=== PATIENT | male | born 1955 ===

== ENCOUNTER 2018-06-21 21:09 | Inpatient (IN) | payer MEDICAID ==
--- NOTE | 2018-06-21 21:59 | C.PDOC ---
History Of Present Illness Patient presents to the ER with a complaint of worsening bilateral leg pain, redness, and swelling. Patient is an insulin dependent diabetic. Denies fever, chills, or trauma. Time Seen by Provider: 06/21/18 21:58 Chief Complaint (Nursing): Lower Extremity Problem/Injury History Per: Patient History/Exam Limitations: no limitations Onset/Duration Of Symptoms: Days Current Symptoms Are (Timing): Still Present Severity: Moderate Pain Scale Rating Of: 4 Recent travel outside of the [place]: No Additional History Per: Patient Past Medical History Reviewed: Historical Data, Nursing Documentation, Vital Signs Vital Signs: Last Vital Signs Temp 98.2 F 06/21/18 21:24 Pulse 97 H 06/21/18 22:50 Resp 20 06/21/18 22:50 BP 134/88 06/21/18 22:50 Pulse Ox 98 06/21/18 22:50 - Medical History PMH: Depression, Diabetes, Hepatitis (Hepatitis C), HTN, Hypercholesterolemia - [facility] INJECT/INFUSE NEC (03/03/14) Family History: States: No Known Family Hx - Social History Hx Tobacco Use: No Hx Alcohol Use: Yes Hx Substance Use: No - Immunization History Hx Tetanus Toxoid Vaccination: No Hx Influenza Vaccination: Yes Hx Pneumococcal Vaccination: No Review Of Systems Constitutional: Negative for: Fever, Chills Cardiovascular: Negative for: Chest Pain, Palpitations Respiratory: Negative for: Cough, Shortness of Breath Gastrointestinal: Negative for: Nausea, Vomiting Genitourinary: Negative for: Dysuria Musculoskeletal: Positive for: Leg Pain Skin: Positive for: Rash, Lesions, Other (Erythema) Neurological: Negative for: Weakness, Numbness Psych: Negative for: Anxiety Physical Exam - Physical Exam Appears: Non-toxic Skin: Warm, Dry, Rash Head: Normacephalic Eye(s): bilateral: Normal Inspection Oral Mucosa: Moist Neck: Supple Chest: Symmetrical, No Tenderness Cardiovascular: Rhythm Regular Respiratory: No Rales, No Rhonchi, No Wheezing Gastrointestinal/Abdominal: Soft, No Tenderness Back: Normal Inspection Extremity: Pedal Edema, Capillary Refill (<2 seconds), Swelling, Other ( Bilateral lower extremity erythema with poor vascular stasis skin changes) Extremity: Bilateral: Atraumatic Pulses: Left Dorsalis Pedis: Normal, Right Dorsalis Pedis: Normal Neurological/Psych: Oriented x3 Gait: Steady ED Course And Treatment - Laboratory Results Result Diagrams: 06/21/18 22:48 06/21/18 22:48 O2 Sat by Pulse Oximetry: 96 (Room air) Pulse Ox Interpretation: Normal Progress Note: Blood work and urinalysis ordered. Disposition Counseled Patient/Family Regarding: Studies Performed, Diagnosis, Need For Followup - Disposition Disposition: HOSPITALIZED Disposition Time: 21:59 Condition: FAIR Forms: [facility] (Turkmen) - POA Present On Arrival: None - Clinical Impression Clinical Impression: Cellulitis of lower extremity, PVD (peripheral vascular disease) - Scribe Statement The provider has reviewed the documentation as recorded by the Scribe Miguel Argueta All medical record entries made by the Scribe were at my direction and personally dictated by me. I have reviewed the chart and agree that the record accurately reflects my personal performance of the history, physical exam, medical decision making, and the department course for this patient. I have also personally directed, reviewed, and agree with the discharge instructions and disposition. Decision To Admit - Pt Status Changed To: Hospital Disposition Of: Inpatient - Admit Certification Admit to Inpatient:: After my assessment, the patient will require hospitalization for at least two midnights. This is because of the severity of symptoms shown, intensity of services needed, and/or the medical risk in this patient being treated as an outpatient. - InPatient: Physician Admission Certification: I certify that this patient requires 2 or more midnights of care for the following reason:: After my assessment, the patient will require hospitalization for at least two midnights. This is because of the severity of symptoms shown, intensity of services needed, and/or the medical risk in this patient being treated as an outpatient. - . Bed Request Type: Regular Admitting Physician: Elizabeth Conley Patient Diagnosis: Cellulitis of lower extremity, PVD (peripheral vascular disease)
[2018-06-21 22:51] LABS: BASO # 0.1 K/uL (0.0-0.2); EOS # 0.2 K/uL (0.0-0.7); EOS % 3.9 % (0.0-4.0); HEMOGLOBIN 11.7 g/dL (12.0-18.0); LYMPH # 1.3 K/uL (1.0-4.3); LYMPH % 25.2 % (20.0-40.0); MEAN CELL VOLUME 91.9 fL (80.0-94.0); MEAN CORPUSCULAR HEMOGLOBIN 30.9 pg (27.0-31.0); MEAN CORPUSCULAR HGB CONC 33.7 g/dL (33.0-37.0); MEAN PLATELET VOLUME 9.4 fL (7.2-11.7); MONO # 0.8 K/uL (0.0-0.8); MONO % 15.3 % (0.0-10.0); NEUT # 2.9 K/uL (1.8-7.0); NEUT % 54.6 % (50.0-75.0); RBC 3.79 Mil/uL (4.40-5.90); RED CELL DISTRIBUTION WIDTH 15.8 % (11.5-14.5); WHITE BLOOD COUNT 5.3 K/uL (4.8-10.8)
[2018-06-21 22:58] LABS: INR 1.2; PROTHROMBIN TIME 13.6 SECONDS (9.7-12.2)
[2018-06-21] MEDS ORDERED: Vancomycin 1 gm/NS 200 ml 1 GM/200 ML BAG IVPB ONE (23:00)
[2018-06-21] MEDS ORDERED: Vancomycin 1 GM 1 GM/250 ML BAG IVPB SCH (23:15)
[2018-06-21 23:22] LABS: ALB/GLOB RATIO 1.4 (1.0-2.1); ALBUMIN 3.5 g/dL (3.5-5.0); CALCIUM 10.5 mg/dl (8.6-10.4)
[2018-06-21 23:52] LABS: VENOUS BLOOD GAS BASE EXCESS 0.1 mmol/L (0.0-2.0); VENOUS BLOOD GAS PCO2 46 mmHg (40-60); VENOUS BLOOD GAS PO2 46 mm/Hg (30-55); VENOUS BLOOD PH 7.36 (7.32-7.43)
[2018-06-22 04:16] LABS: URINE BILIRUBIN NEGATIVE (NEGATIVE); URINE BLOOD NEGATIVE (NEGATIVE); URINE CLARITY Clear (Clear); URINE COLOR Yellow (YELLOW); URINE GLUCOSE (UA) NORMAL (Normal); URINE LEUKOCYTE ESTERASE NEG Leu/uL (Negative); URINE PROTEIN NEGATIVE (NEGATIVE); URINE UROBILINOGEN NORMAL mg/dL (0.2-1.0)
--- NOTE | 2018-06-22 07:38 | CP.PCM.CON ---
History of Present Illness - History of Present Illness History of Present Illness: cc: lower leg pain Mr. Rick and a 53 year old male PMH IDDM, HepC, HTN, hypercholesterolemia presents today with bilateral leg pain with redness and swelling. He was recently seen a week ago (06/14) at both [place] and [facility] EDs for worsening back wound which cultured MRSA and enterobacter cloacae. He was discharged before being able to start an appropriate antibiotic course. He came back to the [facility] ED today for worsening bilateral leg pain, redness, and swelling. States he is still weight-bearing due, however very discomfort. Denies CP, SOB, abd pain, f/c, n/v, c/d, additional trauma. Review of Systems - Constitutional Constitutional: Malaise. absent: Anorexia, Chills, Fever - EENT Eyes: absent: Blurred Vision, Diplopia Ears: absent: Tinnitus, Dizziness Nose/Mouth/Throat: absent: Dysphagia, Odynophagia - Cardiovascular Cardiovascular: Edema, Leg Edema, Leg Ulcers, Pedal Edema. absent: Chest Pain, Dyspnea - Respiratory Respiratory: absent: Cough, Dyspnea, Wheezing - Gastrointestinal Gastrointestinal: absent: Diarrhea, Loose Stools, Melena, Nausea, Vomiting - Genitourinary Genitourinary: absent: Urinary Hesitance, Urinary Urgency, Freq UTI - Musculoskeletal Musculoskeletal: Abnormal Gait, Muscle Cramps, Myalgias - Integumentary Integumentary: Change in Nails, Erythema, Lesions, Non-Healing Lesions, Skin Ulcer, Sores - Neurological Neurological: Abnormal Gait, Numbness, Sensory Deficit, Tingling. absent: Abnormal Hearing, Confusion - Psychiatric Psychiatric: absent: Behavioral Changes, Hallucinations, Mood Swings - Endocrine Endocrine: Fatigue. absent: Cold Intolorance, Heat Intolorance - Hematologic/Lymphatic Hematologic: Easy Bruising. absent: Easy Bleeding Past Patient History - Infectious Disease Hx of Infectious Diseases: None - Past Social History Smoking Status: Current Some Days Smoker Alcohol: Social Drugs: Denies - CARDIAC Hx Hypercholesterolemia: Yes Hx Hypertension: Yes - ENDOCRINE/METABOLIC Hx Diabetes Mellitus Type 1: Yes - HEMATOLOGICAL/ONCOLOGICAL Hx Hepatitis C: Yes - INTEGUMENTARY Other/Comment: left foot ulcer - MUSCULOSKELETAL/RHEUMATOLOGICAL Hx Falls: No - PSYCHIATRIC Hx Depression: Yes Hx Substance Use: No - SURGICAL HISTORY Hx Herniorrhaphy: Yes - ANESTHESIA Hx Anesthesia: Yes Hx Anesthesia Reactions: No Meds Allergies/Adverse Reactions: Allergies Allergy/AdvReac Type Severity Reaction Status Date / Time Penicillins Allergy RASH Verified 06/21/18 21:27 - Medications Medications: Current Medications Apixaban (Eliquis) 5 mg PO DAILY [facility] Colchicine (Colocrys) 0.6 mg PO DAILY [facility] Diltiazem HCl (Cardizem Cd) 240 mg PO DAILY [facility] Gabapentin (Neurontin) 300 mg PO BID [facility] Glimepiride (Amaryl) 2 mg PO DAILY [facility] Home Med (Metformin [Glucophage]) 500 mg PO BID [facility] Vancomycin HCl 1 gm/ Sodium (Chloride) 250 mls @ 167 mls/hr IVPB Q24H [facility]EL[facility] PRN Reason: Protocol Last Admin: 06/22/18 02:19 Dose: Not Given Insulin Aspart (Novolog) 1 unit SC ACHS [facility] PRN Reason: Protocol Losartan Potassium (Cozaar) 100 mg PO DAILY [facility] Pantoprazole Sodium (Protonix Ec Tab) 40 mg PO DAILY [facility] Pneumococcal Polyvalent Vaccine (Pneumovax 23 Vaccine) 0.5 ml IM .ONCE ONE Stop: 06/24/18 14:01 Physical Exam - Constitutional Appears: Non-toxic, No Acute Distress - Head Exam Head Exam: ATRAUMATIC, NORMOCEPHALIC - Eye Exam Eye Exam: EOMI, Normal appearance - Respiratory Exam Respiratory Exam: NORMAL BREATHING PATTERN. absent: Wheezes - Cardiovascular Exam Cardiovascular Exam: +S1, +S2 - GI/Abdominal Exam GI & Abdominal Exam: Normal Bowel Sounds, Soft. absent: Tenderness - Extremities Exam Extremities exam: Positive for: pedal edema, tenderness, pedal pulses present Additional comments: palpable DP, PT bilaterally - Neurological Exam Neurological exam: Alert, CN II-XII Intact, Oriented x3 - Psychiatric Exam Psychiatric exam: Normal Affect, Normal Mood - Skin Skin Exam: Dry, Erythema, Intact, Mottled Additional comments: bilaterally below the knees erythematous, nonpitting edema, tenderness to palpation, without blanching, hot Results - Vital Signs Recent Vital Signs: Last Vital Signs Temp 97.6 F 06/22/18 04:21 Pulse 94 H 06/22/18 04:21 Resp 22 06/22/18 04:21 BP 171/87 H 06/22/18 04:21 Pulse Ox 97 06/22/18 04:29 - Labs Result Diagrams: 06/22/18 07:34 06/22/18 07:34 Labs: Laboratory Results - last 24 hr 06/21/18 06/21/18 06/21/18 22:00 22:48 22:48 WBC 5.3 RBC 3.79 L Hgb 11.7 L Hct 34.9 L MCV 91.9 D MCH 30.9 MCHC 33.7 RDW 15.8 H Plt Count 165 MPV 9.4 Neut % (Auto) 54.6 Lymph % (Auto) 25.2 [place] % (Auto) 15.3 H Eos % (Auto) 3.9 Baso % (Auto) 1.0 Neut # (Auto) 2.9 Lymph # (Auto) 1.3 [place] # (Auto) 0.8 Eos # (Auto) 0.2 Baso # (Auto) 0.1 PT 13.6 H INR 1.2 APTT 33 pO2 VBG pH VBG pCO2 VBG HCO3 VBG Total CO2 VBG O2 Sat (Calc) VBG Base Excess VBG Potassium Glucose Lactate Sodium Potassium Chloride Carbon Dioxide Anion Gap BUN Creatinine Est GFR ( Amer) Est GFR (Non-Af Amer) POC Glucose (mg/dL) 100 Random Glucose Calcium Total Bilirubin AST ALT Alkaline Phosphatase Total Protein Albumin Globulin Albumin/Globulin Ratio Venous Blood Potassium Urine Color Urine Clarity Urine pH Ur Specific [place] Urine Protein Urine Glucose (UA) Urine Ketones Urine Blood Urine Nitrate Urine Bilirubin Urine Urobilinogen Ur Leukocyte Esterase Urine WBC (Auto) Urine RBC (Auto) B-Hydroxybutyrate 06/21/18 06/21/18 06/22/18 22:48 23:38 04:07 WBC RBC Hgb Hct MCV MCH MCHC RDW Plt Count MPV Neut % (Auto) Lymph % (Auto) [place] % (Auto) Eos % (Auto) Baso % (Auto) Neut # (Auto) Lymph # (Auto) [place] # (Auto) Eos # (Auto) Baso # (Auto) PT INR APTT pO2 46 VBG pH 7.36 VBG pCO2 46 VBG HCO3 24.5 VBG Total CO2 27.4 VBG O2 Sat (Calc) 84.3 H VBG Base Excess 0.1 VBG Potassium 3.7 Glucose 91 Lactate 1.5 Sodium 145 144.0 Potassium 4.0 Chloride 110 H 113.0 H Carbon Dioxide 28 Anion Gap 11 BUN 9 Creatinine 1.5 Est GFR ( Amer) 59 Est GFR (Non-Af Amer) 49 POC Glucose (mg/dL) Random Glucose 102 Calcium 10.5 H Total Bilirubin 0.5 AST 18 ALT 26 Alkaline Phosphatase 107 Total Protein 6.1 L Albumin 3.5 Globulin 2.6 Albumin/Globulin Ratio 1.4 Venous Blood Potassium 3.7 Urine Color Yellow Urine Clarity Clear Urine pH 5.0 Ur Specific [place] 1.011 Urine Protein Negative Urine Glucose (UA) Normal Urine Ketones Negative Urine Blood Negative Urine Nitrate Negative Urine Bilirubin Negative Urine Urobilinogen Normal Ur Leukocyte Esterase Neg Urine WBC (Auto) 1 Urine RBC (Auto) 1 B-Hydroxybutyrate 0.05 06/22/18 06:24 WBC RBC Hgb Hct MCV MCH MCHC RDW Plt Count MPV Neut % (Auto) Lymph % (Auto) [place] % (Auto) Eos % (Auto) Baso % (Auto) Neut # (Auto) Lymph # (Auto) [place] # (Auto) Eos # (Auto) Baso # (Auto) PT INR APTT pO2 VBG pH VBG pCO2 VBG HCO3 VBG Total CO2 VBG O2 Sat (Calc) VBG Base Excess VBG Potassium Glucose Lactate Sodium Potassium Chloride Carbon Dioxide Anion Gap BUN Creatinine Est GFR ( Amer) Est GFR (Non-Af Amer) POC Glucose (mg/dL) 92 Random Glucose Calcium Total Bilirubin AST ALT Alkaline Phosphatase Total Protein Albumin Globulin Albumin/Globulin Ratio Venous Blood Potassium Urine Color Urine Clarity Urine pH Ur Specific [place] Urine Protein Urine Glucose (UA) Urine Ketones Urine Blood Urine Nitrate Urine Bilirubin Urine Urobilinogen Ur Leukocyte Esterase Urine WBC (Auto) Urine RBC (Auto) B-Hydroxybutyrate Assessment & Plan - Assessment and Plan (Free Text) Assessment: 53yoM PMH IDDM with PVD Plan: - bilateral arterial dopplers: negative - bilateral venous dopplers: negative - wound Cx done 06/14 positive for MRSA and enterobacter cloacae - cont IV abx per ID - palpable peripheral pulses bilaterally - erythema due to venous stasis - rec compression stockings and elevation - signing off - please reconsult as necessary Annalise Crabtree PGY1 - Date & Time Date: 06/22/18 Time: 06:30
[2018-06-22 07:50] LABS: BASO # 0.1 K/uL (0.0-0.2); BASO % 1.2 % (0.0-2.0); EOS # 0.2 K/uL (0.0-0.7); EOS % 3.9 % (0.0-4.0); HEMOGLOBIN 12.1 g/dL (12.0-18.0); LYMPH # 1.1 K/uL (1.0-4.3); LYMPH % 20.9 % (20.0-40.0); MEAN CELL VOLUME 91.8 fL (80.0-94.0); MEAN CORPUSCULAR HEMOGLOBIN 30.5 pg (27.0-31.0); MEAN CORPUSCULAR HGB CONC 33.3 g/dL (33.0-37.0); MEAN PLATELET VOLUME 9.4 fL (7.2-11.7); MONO # 0.8 K/uL (0.0-0.8); MONO % 14.5 % (0.0-10.0); NEUT # 3.1 K/uL (1.8-7.0); NEUT % 59.5 % (50.0-75.0); NRBC % 0.1 % (0.0-2.0); RBC 3.97 Mil/uL (4.40-5.90); RED CELL DISTRIBUTION WIDTH 16.2 % (11.5-14.5); WHITE BLOOD COUNT 5.2 K/uL (4.8-10.8)
[2018-06-22] MEDS: (Novolog) Insulin Aspart, Recombinant 100 u/ml 10 ml vial SC SCH ×4 (07:50→22:32)
[2018-06-22 08:00] LABS: ALB/GLOB RATIO 1.3 (1.0-2.1); ALBUMIN 3.3 g/dL (3.5-5.0); ALT/SGPT 27 U/L (21-72); AST/SGOT 22 U/L (17-59); BLOOD UREA NITROGEN 11 mg/dL (9-20); CALCIUM 10.3 mg/dl (8.6-10.4); GFR AFRICAN-AMERICAN > 60; GFR NON-AFRICAN AMERICAN 53
[2018-06-22 08:23] LABS: B-TYPE NATRIURETIC PEPTIDE 759 pg/mL (0-900)
[2018-06-22] MEDS: Pantoprazole 40 mg EC Tab PO SCH (09:36)
[2018-06-22] MEDS: diltiaZEM 240 mg/24 Hours CD Cap PO SCH (09:36)
[2018-06-22] MEDS ORDERED: Home Med 1 UNIT (Metformin [Glucophage] 500 MG) PO SCH (10:00)
--- NOTE | 2018-06-22 12:35 | CP.PCM.HP ---
Past Patient History - Infectious Disease Hx of Infectious Diseases: None - Past Social History Smoking Status: Current Some Days Smoker Alcohol: Social Drugs: Denies - CARDIAC Hx Hypercholesterolemia: Yes Hx Hypertension: Yes - ENDOCRINE/METABOLIC Hx Diabetes Mellitus Type 1: Yes - HEMATOLOGICAL/ONCOLOGICAL Hx Hepatitis C: Yes - INTEGUMENTARY Other/Comment: left foot ulcer - MUSCULOSKELETAL/RHEUMATOLOGICAL Hx Falls: No - PSYCHIATRIC Hx Depression: Yes Hx Substance Use: No - SURGICAL HISTORY Hx Herniorrhaphy: Yes - ANESTHESIA Hx Anesthesia: Yes Hx Anesthesia Reactions: No Meds Allergies/Adverse Reactions: Allergies Allergy/AdvReac Type Severity Reaction Status Date / Time Penicillins Allergy RASH Verified 06/21/18 21:27 Physical Exam - Constitutional Appears: Well - Head Exam Head Exam: ATRAUMATIC, NORMAL INSPECTION, NORMOCEPHALIC - Eye Exam Eye Exam: EOMI, Normal appearance, PERRL Pupil Exam: NORMAL ACCOMODATION, PERRL - ENT Exam ENT Exam: Mucous Membranes Moist, Normal Exam - Neck Exam Neck exam: Positive for: Normal Inspection - Respiratory Exam Respiratory Exam: Decreased Breath Sounds - Cardiovascular Exam Cardiovascular Exam: REGULAR RHYTHM, +S1, +S2 - GI/Abdominal Exam GI & Abdominal Exam: Diminished Bowel Sounds, Soft - Rectal Exam Rectal Exam: Deferred Results - Vital Signs Recent Vital Signs: Last Vital Signs Temp 98.2 F 06/22/18 07:32 Pulse 94 H 06/22/18 04:21 Resp 18 06/22/18 07:32 BP 168/80 H 06/22/18 07:32 Pulse Ox 100 06/22/18 07:32 - Labs Result Diagrams: 06/22/18 07:34 06/22/18 07:34 Labs: Laboratory Results - last 24 hr 06/21/18 06/21/18 06/21/18 22:00 22:48 22:48 WBC 5.3 RBC 3.79 L Hgb 11.7 L Hct 34.9 L MCV 91.9 D MCH 30.9 MCHC 33.7 RDW 15.8 H Plt Count 165 MPV 9.4 Neut % (Auto) 54.6 Lymph % (Auto) 25.2 [place] % (Auto) 15.3 H Eos % (Auto) 3.9 Baso % (Auto) 1.0 Neut # (Auto) 2.9 Lymph # (Auto) 1.3 [place] # (Auto) 0.8 Eos # (Auto) 0.2 Baso # (Auto) 0.1 PT 13.6 H INR 1.2 APTT 33 pO2 VBG pH VBG pCO2 VBG HCO3 VBG Total CO2 VBG O2 Sat (Calc) VBG Base Excess VBG Potassium Glucose Lactate Sodium Potassium Chloride Carbon Dioxide Anion Gap BUN Creatinine Est GFR ( Amer) Est GFR (Non-Af Amer) POC Glucose (mg/dL) 100 Random Glucose Calcium Phosphorus Magnesium Total Bilirubin AST ALT Alkaline Phosphatase NT-Pro-B Natriuret Pep Total Protein Albumin Globulin Albumin/Globulin Ratio Venous Blood Potassium Urine Color Urine Clarity Urine pH Ur Specific [place] Urine Protein Urine Glucose (UA) Urine Ketones Urine Blood Urine Nitrate Urine Bilirubin Urine Urobilinogen Ur Leukocyte Esterase Urine WBC (Auto) Urine RBC (Auto) B-Hydroxybutyrate 06/21/18 06/21/18 06/22/18 22:48 23:38 04:07 WBC RBC Hgb Hct MCV MCH MCHC RDW Plt Count MPV Neut % (Auto) Lymph % (Auto) [place] % (Auto) Eos % (Auto) Baso % (Auto) Neut # (Auto) Lymph # (Auto) [place] # (Auto) Eos # (Auto) Baso # (Auto) PT INR APTT pO2 46 VBG pH 7.36 VBG pCO2 46 VBG HCO3 24.5 VBG Total CO2 27.4 VBG O2 Sat (Calc) 84.3 H VBG Base Excess 0.1 VBG Potassium 3.7 Glucose 91 Lactate 1.5 Sodium 145 144.0 Potassium 4.0 Chloride 110 H 113.0 H Carbon Dioxide 28 Anion Gap 11 BUN 9 Creatinine 1.5 Est GFR ( Amer) 59 Est GFR (Non-Af Amer) 49 POC Glucose (mg/dL) Random Glucose 102 Calcium 10.5 H Phosphorus Magnesium Total Bilirubin 0.5 AST 18 ALT 26 Alkaline Phosphatase 107 NT-Pro-B Natriuret Pep Total Protein 6.1 L Albumin 3.5 Globulin 2.6 Albumin/Globulin Ratio 1.4 Venous Blood Potassium 3.7 Urine Color Yellow Urine Clarity Clear Urine pH 5.0 Ur Specific [place] 1.011 Urine Protein Negative Urine Glucose (UA) Normal Urine Ketones Negative Urine Blood Negative Urine Nitrate Negative Urine Bilirubin Negative Urine Urobilinogen Normal Ur Leukocyte Esterase Neg Urine WBC (Auto) 1 Urine RBC (Auto) 1 B-Hydroxybutyrate 0.05 06/22/18 06/22/18 06/22/18 06:24 07:34 07:34 WBC 5.2 RBC 3.97 L Hgb 12.1 Hct 36.4 MCV 91.8 MCH 30.5 MCHC 33.3 RDW 16.2 H Plt Count 165 MPV 9.4 Neut % (Auto) 59.5 Lymph % (Auto) 20.9 [place] % (Auto) 14.5 H Eos % (Auto) 3.9 Baso % (Auto) 1.2 Neut # (Auto) 3.1 Lymph # (Auto) 1.1 [place] # (Auto) 0.8 Eos # (Auto) 0.2 Baso # (Auto) 0.1 PT INR APTT pO2 VBG pH VBG pCO2 VBG HCO3 VBG Total CO2 VBG O2 Sat (Calc) VBG Base Excess VBG Potassium Glucose Lactate Sodium 144 Potassium 4.2 Chloride 110 H Carbon Dioxide 27 Anion Gap 12 BUN 11 Creatinine 1.4 Est GFR ( Amer) > 60 Est GFR (Non-Af Amer) 53 POC Glucose (mg/dL) 92 Random Glucose 95 Calcium 10.3 Phosphorus 2.6 Magnesium 1.8 Total Bilirubin 0.5 AST 22 ALT 27 Alkaline Phosphatase 102 NT-Pro-B Natriuret Pep 759 Total Protein 6.0 L Albumin 3.3 L Globulin 2.6 Albumin/Globulin Ratio 1.3 Venous Blood Potassium Urine Color Urine Clarity Urine pH Ur Specific [place] Urine Protein Urine Glucose (UA) Urine Ketones Urine Blood Urine Nitrate Urine Bilirubin Urine Urobilinogen Ur Leukocyte Esterase Urine WBC (Auto) Urine RBC (Auto) B-Hydroxybutyrate 06/22/18 11:08 WBC RBC Hgb Hct MCV MCH MCHC RDW Plt Count MPV Neut % (Auto) Lymph % (Auto) [place] % (Auto) Eos % (Auto) Baso % (Auto) Neut # (Auto) Lymph # (Auto) [place] # (Auto) Eos # (Auto) Baso # (Auto) PT INR APTT pO2 VBG pH VBG pCO2 VBG HCO3 VBG Total CO2 VBG O2 Sat (Calc) VBG Base Excess VBG Potassium Glucose Lactate Sodium Potassium Chloride Carbon Dioxide Anion Gap BUN Creatinine Est GFR ( Amer) Est GFR (Non-Af Amer) POC Glucose (mg/dL) 91 Random Glucose Calcium Phosphorus Magnesium Total Bilirubin AST ALT Alkaline Phosphatase NT-Pro-B Natriuret Pep Total Protein Albumin Globulin Albumin/Globulin Ratio Venous Blood Potassium Urine Color Urine Clarity Urine pH Ur Specific [place] Urine Protein Urine Glucose (UA) Urine Ketones Urine Blood Urine Nitrate Urine Bilirubin Urine Urobilinogen Ur Leukocyte Esterase Urine WBC (Auto) Urine RBC (Auto) B-Hydroxybutyrate
--- NOTE | 2018-06-22 15:13 | VASCLAB ---
Date of service: 06/22/2018 PROCEDURE: Lower Extremity Venous Duplex Exam. HISTORY: CELLULITIS, PAIN PRIORS: None. TECHNIQUE: Bilateral common femoral, femoral, popliteal and posterior tibial, peroneal and great saphenous veins were evaluated. Flow was assessed with color Doppler, compressibility, assessment of phasic flow and augmentation response. Report prepared by Miguel Sharma, BS, RVT FINDINGS: RIGHT: 1. Common Femoral Vein: 1.1. Compressibility - Fully compressible: Thrombus - None : Flow - Phasic: Augmentation -Normal: Reflux - None. 2. Femoral Vein: 2.1. Compressibility - Fully compressible: Thrombus - None : Flow - Phasic: Augmentation -Normal: Reflux - None. 3. Popliteal Vein: 3.1. Compressibility - Fully compressible: Thrombus - None : Flow - Phasic: Augmentation -Normal: Reflux - None. 4. Posterior Tibial Vein: 4.1. Compressibility - Fully compressible: Thrombus - None: Flow - Phasic: Augmentation -Normal: Reflux - None. 5. Peroneal Vein: 5.1. Compressibility - Fully compressible: Thrombus - None: Flow - Phasic: Augmentation -Normal: Reflux - None. 6. Great Saphenous Vein: 6.1. Compressibility - Fully compressible: Thrombus - None: Flow - Phasic: Augmentation - Normal: Reflux - None. LEFT: 1. Common Femoral Vein: 1.1. Compressibility - Fully compressible: Thrombus - None: Flow - Phasic: Augmentation -Normal: Reflux - None. 2. Femoral Vein: 2.1. Compressibility - Fully compressible: Thrombus - None: Flow - Phasic: Augmentation -Normal: Reflux - None. 3. Popliteal Vein: 3.1. Compressibility - Fully compressible: Thrombus - None : Flow - Phasic: Augmentation -Normal: Reflux - None. 4. Posterior Tibial Vein: 4.1. Compressibility - Fully compressible: Thrombus - None: Flow - Phasic: Augmentation -Normal: Reflux - None. 5. Peroneal Vein: 5.1. Compressibility - Fully compressible: Thrombus - None: Flow - Phasic: Augmentation -Normal: Reflux - None. 6. Great Saphenous Vein: 6.1. Compressibility - Fully compressible: Thrombus - None: Flow - Phasic: Augmentation - Normal: Reflux - None. OTHER FINDINGS: Right: None significant. Left: None significant. IMPRESSION: Right: No evidence of deep or superficial vein thrombosis of the right lower extremity. Normal valve function noted of the right side. Left: No evidence of deep or superficial vein thrombosis of the left lower extremity. Normal valve function noted of the left side.
--- NOTE | 2018-06-22 15:13 | VASCLAB ---
Date of service: 06/22/2018 STUDY DESCRIPTION: HISTORY: CELLULITIS,PAIN IN LOWER EXTREMITIES PRIORS: None. TECHNIQUE: Pulse volume recording waveforms and segmental pressures of bilateral lower extremities at multiple levels were obtained. Ankle Brachial Indices (ABIs) were calculated. Report prepared by Miguel Sharma, BS, RVT RIGHT LOWER EXTREMITY: * Brachial artery: Pressure - 145 mmHg. * High thigh: Pressure - mmHg: Ratio - : PVR waveform - Pulsatile * Low thigh: Pressure - mmHg: Ratio - PVR waveform: Pulsatile * Calf: Pressure - 165 mmHg: Ratio - 1.14 PVR waveform: Pulsatile * Posterior tibial Artery: Pressure - 174 mmHg: Ratio - 1.20 PVR waveform: Pulsatile * Dorsalis pedis Artery: Pressure - 167 mmHg: Ratio - 1.15 PVR waveform: Pulsatile * Great toe: Pressure - mmHg: Ratio - PVR waveform: Ankle brachial index (ED): 1.20 LEFT LOWER EXTREMITY: * Brachial artery: Pressure - 132 mmHg. * High thigh: Pressure - mmHg: Ratio - : PVR waveform - Pulsatile * Low thigh: Pressure - mmHg: Ratio - PVR waveform: Pulsatile * Calf: Pressure - 171 mmHg: Ratio - 1.18 PVR waveform: Pulsatile * Posterior tibial Artery: Pressure - 159 mmHg: Ratio - 1.10 PVR waveform: Pulsatile * Dorsalis pedis Artery: Pressure - 167 mmHg: Ratio - 1.15 PVR waveform: Pulsatile * Great toe: Pressure - mmHg: Ratio - PVR waveform: Ankle brachial index (ED): 1.15 OTHER FINDINGS: Right: Left: IMPRESSION: Right: There was no evidence of hemodynamically significant arterial insufficiency in the right lower extremity. Left: There was no evidence of hemodynamically significant arterial insufficiency in the left lower extremity.
--- NOTE | 2018-06-22 15:53 | CP.PCM.CON ---
History of Present Illness - History of Present Illness History of Present Illness: Patient presents to the ER with a complaint of worsening bilateral leg pain, redness, and swelling. Patient is an insulin dependent diabetic. Denies fever, chills, or trauma. hx allergy PCN started Vanco IV - Medical History PMH: Depression, Diabetes, Hepatitis (Hepatitis C), HTN, Hypercholesterolemia - [facility] Procedures INJECT/INFUSE NEC (03/03/14) Review of Systems - Review of Systems All systems: reviewed and no additional remarkable complaints except - Constitutional Constitutional: As Per HPI - EENT Eyes: absent: As Per HPI, Blind Spots, Blurred Vision, Change in Vision, Decreased Night Vision, Diplopia, Discharge, Dry Eye, Exophthalmos, Floaters, Irritation, Itchy Eyes, Loss of Peripheral Vision, Pain, Photophobia, Requires Corrective Lenses, Sees Flashes, Spots in Vision, Tunnel Vision, Other Visual Disturbances, Loss of Vision, Other Ears: absent: As Per HPI, Decreased Hearing, Ear Discharge, Ear Pain, Tinnitus, Abnormal Hearing, Disequilibrium, Dizziness, Other Nose/Mouth/Throat: absent: As Per HPI, Epistaxis, Nasal Congestion, Nasal Discharge, Nasal Obstruction, Nasal Trauma, Nose Pain, Post Nasal Drip, Sinus Pain, Sinus Pressure, Bleeding Gums, Change in Voice, Dental Pain, Dry Mouth, Dysphagia, Halitosis, Hoarsness, Lip Swelling, Mouth Lesions, Mouth Pain, Odynophagia, Sore Throat, Throat Swelling, Tongue Swelling, Facial Pain, Neck Pain, Neck Mass, Other - Cardiovascular Cardiovascular: As Per HPI - Respiratory Respiratory: absent: As Per HPI, Cough, Dyspnea, Hemoptysis, Dyspnea on Exertion , Wheezing, Snoring, Stridor, Pain on Inspiration, Chest Congestion, Excessive Mucous Production, Change in Mucous Color, Pain with Coughing, Other - Gastrointestinal Gastrointestinal: absent: As Per HPI, Abdominal Pain, Belching, Bloating, Change in Bowel Habits, Change in Stool Character, Coffee Ground Emesis, Constipation, Cramping, Diarrhea, Dyspepsia, Dysphagia, Early Satiety, Excessive Flatus, Fecal Incontinence, Heartburn, Hematemesis, Hematochezia, Loose Stools, Melena, Nausea, Odynophagia, Temesmus, Vomiting, Other - Genitourinary Genitourinary: absent: As Per HPI, Change in Urinary Stream, Difficulty Urinating, Dysuria, Flank Pain, Hematuria, Pyuria, Nocturia, Urinary Incontinence, Urinary Frequency, Urinary Hesitance, Urinary Urgency, Voiding Freq/Small Amts, Freq UTI, Hx Renal/Bladder Calculi, Hx /Renal Surgery, Bladder Distension, Other - Musculoskeletal Musculoskeletal: absent: As Per HPI, Abnormal Gait, Arthralgias, Atrophy, Back Pain, Deformity, Joint Swelling, Limited Range of Motion, Loss of Height, Muscle Cramps, Muscle Weakness, Myalgias, Neck Pain, Numbness, Radiating Pain into Limb, Stiffness, Tingling, Other - Integumentary Integumentary: As Per HPI, Skin Pain, Wounds - Neurological Neurological: absent: As Per HPI, Abnormal Gait, Abnormal Hearing, Abnormal Movements, Abnormal Speech, Behavioral Changes, Burning Sensations, Confusion, Convulsions, Disequilibrium, Dizziness, Numbness, Focal Weakness, Frequent Falls , Headaches, Lack of Coordination, Loss of Vision, Memory Loss, Paresthesias, Radicular Pain, Restless Legs, Sensory Deficit, Syncope, Tingling, Tremor, Vertigo, Weakness, Other Visual Disturbances, Other - Psychiatric Psychiatric: absent: As Per HPI, Abnormal Sleep Pattern, Anhedonia, Anxiety, Auditory Hallucinations, Behavioral Changes, Change in Appetite, Change in Libido, Confusion, Depression, Difficulty Concentrating, Hallucinations, Homicidal Ideation, Hopelessness, Irritability, Memory Loss, Mood Swings, Panic Attacks, Paranoia, Suicidal Ideation, Visual Hallucinations, Tactile Hallucinations, Other - Endocrine Endocrine: absent: As Per HPI, Change in Body Appearance, Change in Libido, Cold Intolorance, Deepening of Voice, Excessive Sweating, Fatigue, Flushing, Heat Intolorance, Increase in Ring/Shoe/Hat Size, Palpitations, Polydipsia, Polyphagia, Polyuria, Other - Hematologic/Lymphatic Hematologic: absent: As Per HPI, Easy Bleeding, Easy Bruising, Lymphadenopathy, Other Past Patient History - Infectious Disease Hx of Infectious Diseases: None - Past Social History Smoking Status: Current Some Days Smoker Alcohol: Social Drugs: Denies - CARDIAC Hx Hypercholesterolemia: Yes Hx Hypertension: Yes - ENDOCRINE/METABOLIC Hx Diabetes Mellitus Type 1: Yes - HEMATOLOGICAL/ONCOLOGICAL Hx Hepatitis C: Yes - INTEGUMENTARY Other/Comment: left foot ulcer - MUSCULOSKELETAL/RHEUMATOLOGICAL Hx Falls: No - PSYCHIATRIC Hx Depression: Yes Hx Substance Use: No - SURGICAL HISTORY Hx Herniorrhaphy: Yes - ANESTHESIA Hx Anesthesia: Yes Hx Anesthesia Reactions: No Meds Allergies/Adverse Reactions: Allergies Allergy/AdvReac Type Severity Reaction Status Date / Time Penicillins Allergy RASH Verified 06/21/18 21:27 - Medications Medications: Current Medications Apixaban (Eliquis) 5 mg PO DAILY [facility] Last Admin: 06/22/18 09:36 Dose: 5 mg Colchicine (Colocrys) 0.6 mg PO DAILY [facility] Last Admin: 06/22/18 10:43 Dose: 0.6 mg Diltiazem HCl (Cardizem Cd) 240 mg PO DAILY [facility] Last Admin: 06/22/18 09:36 Dose: 240 mg Gabapentin (Neurontin) 300 mg PO BID [facility] Last Admin: 06/22/18 09:36 Dose: 300 mg Glimepiride (Amaryl) 2 mg PO DAILY [facility] Last Admin: 06/22/18 09:36 Dose: 2 mg Vancomycin/Sodium Chloride (Vancomycin 1 Gm/Ns 200 Ml) 1 gm in 200 mls @ 133.333 mls/hr IVPB Q24H [facility] PRN Reason: Protocol Stop: 06/27/18 01:31 Insulin Aspart (Novolog) 1 unit SC [facility] PRN Reason: Protocol Last Admin: 06/22/18 11:20 Dose: Not Given Losartan Potassium (Cozaar) 100 mg PO DAILY [facility] Last Admin: 06/22/18 09:36 Dose: 100 mg Metformin HCl (Glucophage) 500 mg PO BID [facility] Last Admin: 06/22/18 10:43 Dose: 500 mg Pantoprazole Sodium (Protonix Ec Tab) 40 mg PO DAILY [facility] Last Admin: 06/22/18 09:36 Dose: 40 mg Pneumococcal Polyvalent Vaccine (Pneumovax 23 Vaccine) 0.5 ml IM .ONCE ONE Stop: 06/24/18 14:01 Physical Exam - Constitutional Appears: Non-toxic, Chronically Ill - Head Exam Head Exam: NORMOCEPHALIC - Eye Exam Eye Exam: absent: Scleral icterus - ENT Exam ENT Exam: Mucous Membranes Dry - Neck Exam Neck exam: Negative for: Thyromegaly - Respiratory Exam Respiratory Exam: Decreased Breath Sounds, Clear to Auscultation Bilateral - Cardiovascular Exam Cardiovascular Exam: REGULAR RHYTHM, +S1, +S2 - GI/Abdominal Exam GI & Abdominal Exam: Diminished Bowel Sounds, Soft. absent: Tenderness - Rectal Exam Rectal Exam: Deferred - Exam Exam: NORMAL INSPECTION - Extremities Exam Extremities exam: Positive for: pedal edema, tenderness. Negative for: calf tenderness, pedal pulses present - Back Exam Back exam: absent: CVA tenderness (L), CVA tenderness (R) - Neurological Exam Neurological exam: Alert, CN II-XII Intact, Oriented x3, Reflexes Normal - Psychiatric Exam Psychiatric exam: Normal Mood - Skin Skin Exam: Dry, Erythema Results - Vital Signs Recent Vital Signs: Last Vital Signs Temp 98.2 F 06/22/18 07:32 Pulse 94 H 06/22/18 04:21 Resp 18 06/22/18 07:32 BP 168/80 H 06/22/18 07:32 Pulse Ox 100 06/22/18 07:32 - Labs Result Diagrams: 06/22/18 07:34 06/22/18 07:34 Labs: Laboratory Results - last 24 hr 06/21/18 06/21/18 06/21/18 22:00 22:48 22:48 WBC 5.3 RBC 3.79 L Hgb 11.7 L Hct 34.9 L MCV 91.9 D MCH 30.9 MCHC 33.7 RDW 15.8 H Plt Count 165 MPV 9.4 Neut % (Auto) 54.6 Lymph % (Auto) 25.2 Leslie % (Auto) 15.3 H Eos % (Auto) 3.9 Baso % (Auto) 1.0 Neut # (Auto) 2.9 Lymph # (Auto) 1.3 Leslie # (Auto) 0.8 Eos # (Auto) 0.2 Baso # (Auto) 0.1 PT 13.6 H INR 1.2 APTT 33 pO2 VBG pH VBG pCO2 VBG HCO3 VBG Total CO2 VBG O2 Sat (Calc) VBG Base Excess VBG Potassium Glucose Lactate Sodium Potassium Chloride Carbon Dioxide Anion Gap BUN Creatinine Est GFR ( Amer) Est GFR (Non-Af Amer) POC Glucose (mg/dL) 100 Random Glucose Calcium Phosphorus Magnesium Total Bilirubin AST ALT Alkaline Phosphatase NT-Pro-B Natriuret Pep Total Protein Albumin Globulin Albumin/Globulin Ratio Venous Blood Potassium Urine Color Urine Clarity Urine pH Ur Specific [place] Urine Protein Urine Glucose (UA) Urine Ketones Urine Blood Urine Nitrate Urine Bilirubin Urine Urobilinogen Ur Leukocyte Esterase Urine WBC (Auto) Urine RBC (Auto) B-Hydroxybutyrate 06/21/18 06/21/18 06/22/18 22:48 23:38 04:07 WBC RBC Hgb Hct MCV MCH MCHC RDW Plt Count MPV Neut % (Auto) Lymph % (Auto) Leslie % (Auto) Eos % (Auto) Baso % (Auto) Neut # (Auto) Lymph # (Auto) Leslie # (Auto) Eos # (Auto) Baso # (Auto) PT INR APTT pO2 46 VBG pH 7.36 VBG pCO2 46 VBG HCO3 24.5 VBG Total CO2 27.4 VBG O2 Sat (Calc) 84.3 H VBG Base Excess 0.1 VBG Potassium 3.7 Glucose 91 Lactate 1.5 Sodium 145 144.0 Potassium 4.0 Chloride 110 H 113.0 H Carbon Dioxide 28 Anion Gap 11 BUN 9 Creatinine 1.5 Est GFR ( Amer) 59 Est GFR (Non-Af Amer) 49 POC Glucose (mg/dL) Random Glucose 102 Calcium 10.5 H Phosphorus Magnesium Total Bilirubin 0.5 AST 18 ALT 26 Alkaline Phosphatase 107 NT-Pro-B Natriuret Pep Total Protein 6.1 L Albumin 3.5 Globulin 2.6 Albumin/Globulin Ratio 1.4 Venous Blood Potassium 3.7 Urine Color Yellow Urine Clarity Clear Urine pH 5.0 Ur Specific [place] 1.011 Urine Protein Negative Urine Glucose (UA) Normal Urine Ketones Negative Urine Blood Negative Urine Nitrate Negative Urine Bilirubin Negative Urine Urobilinogen Normal Ur Leukocyte Esterase Neg Urine WBC (Auto) 1 Urine RBC (Auto) 1 B-Hydroxybutyrate 0.05 06/22/18 06/22/18 06/22/18 06:24 07:34 07:34 WBC 5.2 RBC 3.97 L Hgb 12.1 Hct 36.4 MCV 91.8 MCH 30.5 MCHC 33.3 RDW 16.2 H Plt Count 165 MPV 9.4 Neut % (Auto) 59.5 Lymph % (Auto) 20.9 Leslie % (Auto) 14.5 H Eos % (Auto) 3.9 Baso % (Auto) 1.2 Neut # (Auto) 3.1 Lymph # (Auto) 1.1 Leslie # (Auto) 0.8 Eos # (Auto) 0.2 Baso # (Auto) 0.1 PT INR APTT pO2 VBG pH VBG pCO2 VBG HCO3 VBG Total CO2 VBG O2 Sat (Calc) VBG Base Excess VBG Potassium Glucose Lactate Sodium 144 Potassium 4.2 Chloride 110 H Carbon Dioxide 27 Anion Gap 12 BUN 11 Creatinine 1.4 Est GFR ( Amer) > 60 Est GFR (Non-Af Amer) 53 POC Glucose (mg/dL) 92 Random Glucose 95 Calcium 10.3 Phosphorus 2.6 Magnesium 1.8 Total Bilirubin 0.5 AST 22 ALT 27 Alkaline Phosphatase 102 NT-Pro-B Natriuret Pep 759 Total Protein 6.0 L Albumin 3.3 L Globulin 2.6 Albumin/Globulin Ratio 1.3 Venous Blood Potassium Urine Color Urine Clarity Urine pH Ur Specific [place] Urine Protein Urine Glucose (UA) Urine Ketones Urine Blood Urine Nitrate Urine Bilirubin Urine Urobilinogen Ur Leukocyte Esterase Urine WBC (Auto) Urine RBC (Auto) B-Hydroxybutyrate 06/22/18 11:08 WBC RBC Hgb Hct MCV MCH MCHC RDW Plt Count MPV Neut % (Auto) Lymph % (Auto) Leslie % (Auto) Eos % (Auto) Baso % (Auto) Neut # (Auto) Lymph # (Auto) Leslie # (Auto) Eos # (Auto) Baso # (Auto) PT INR APTT pO2 VBG pH VBG pCO2 VBG HCO3 VBG Total CO2 VBG O2 Sat (Calc) VBG Base Excess VBG Potassium Glucose Lactate Sodium Potassium Chloride Carbon Dioxide Anion Gap BUN Creatinine Est GFR ( Amer) Est GFR (Non-Af Amer) POC Glucose (mg/dL) 91 Random Glucose Calcium Phosphorus Magnesium Total Bilirubin AST ALT Alkaline Phosphatase NT-Pro-B Natriuret Pep Total Protein Albumin Globulin Albumin/Globulin Ratio Venous Blood Potassium Urine Color Urine Clarity Urine pH Ur Specific [place] Urine Protein Urine Glucose (UA) Urine Ketones Urine Blood Urine Nitrate Urine Bilirubin Urine Urobilinogen Ur Leukocyte Esterase Urine WBC (Auto) Urine RBC (Auto) B-Hydroxybutyrate Assessment & Plan (1) Cellulitis of lower extremity Status: Acute (2) PVD (peripheral vascular disease) Status: Acute (3) Chronic foot ulcer Status: Acute (4) Diabetes Status: Acute - Assessment and Plan (Free Text) Assessment: recc podiatry and vascular consults cont wound care and IV antibiotics
[2018-06-22] MEDS: Albuterol-Ipratrop 3 mg / 0.5 (3 ml) UD INH SCH (19:50)
[2018-06-22] MEDS: Budesonide 0.5 mg/2 ml Inhal Susp UD INH SCH (19:50)
[2018-06-22] MEDS ORDERED: MethylPREDNISolone 40 mg Vial IVP SCH (20:00)
[2018-06-22] MEDS: MethylPREDNISolone 40 mg Vial IVP SCH (22:14)
[2018-06-23] MEDS: Vancomycin 1 gm/NS 200 ml 1 GM/200 ML BAG IVPB SCH (00:32)
[2018-06-23] MEDS: Albuterol-Ipratrop 3 mg / 0.5 (3 ml) UD INH SCH ×4 (01:28→20:20)
[2018-06-23] MEDS: MethylPREDNISolone 40 mg Vial IVP SCH ×3 (06:40→22:19)
[2018-06-23] MEDS: Budesonide 0.5 mg/2 ml Inhal Susp UD INH SCH ×2 (07:58→20:20)
[2018-06-23] MEDS: (Novolog) Insulin Aspart, Recombinant 100 u/ml 10 ml vial SC SCH ×4 (08:15→21:41)
[2018-06-23 08:35] LABS: BASO % 0.3 % (0.0-2.0); EOS % 0.1 % (0.0-4.0); HEMOGLOBIN 13.2 g/dL (12.0-18.0); LYMPH # 0.6 K/uL (1.0-4.3); LYMPH % 11.5 % (20.0-40.0); MEAN CELL VOLUME 91.6 fL (80.0-94.0); MEAN CORPUSCULAR HEMOGLOBIN 30.6 pg (27.0-31.0); MEAN CORPUSCULAR HGB CONC 33.4 g/dL (33.0-37.0); MEAN PLATELET VOLUME 10.3 fL (7.2-11.7); MONO # 0.1 K/uL (0.0-0.8); MONO % 1.5 % (0.0-10.0); NEUT # 4.7 K/uL (1.8-7.0); NEUT % 86.6 % (50.0-75.0); RBC 4.32 Mil/uL (4.40-5.90); RED CELL DISTRIBUTION WIDTH 15.4 % (11.5-14.5); WHITE BLOOD COUNT 5.4 K/uL (4.8-10.8)
[2018-06-23 08:51] LABS: ALB/GLOB RATIO 1.4 (1.0-2.1); ALBUMIN 3.9 g/dL (3.5-5.0); ALT/SGPT 20 U/L (21-72); AST/SGOT 18 U/L (17-59); BLOOD UREA NITROGEN 13 mg/dL (9-20); CALCIUM 10.7 mg/dl (8.6-10.4); GFR AFRICAN-AMERICAN > 60; GFR NON-AFRICAN AMERICAN > 60
[2018-06-23] MEDS ORDERED: Dextrose 50% SYRINGE Inj (50 ml) IV PRN (09:28)
[2018-06-23] MEDS ORDERED: Glucagon Recombinant 1 mg Inj IM PRN (09:28)
--- NOTE | 2018-06-23 09:35 | CP.PCM.PN ---
Subjective - Date & Time of Evaluation Date of Evaluation: 06/23/18 Time of Evaluation: 07:00 - Subjective Subjective: PGY2- Progress Note for Dr. Conley Patient says he is feeling better but still has bilateral lower extremity pain and shortness of breath. Patient denies chest pain, abdominal pain, nausea, vomiting, constipation, or diarrhea. Allergies: Penicillin PMH: HTN, DMII, HLD, a fib?, hep C?, COPD, Gout Psurg: bunions removed b/l many years ago Famhx: mom at 89 Social 2-3 cigs daily, 3-4 small bottles of liquor daily for 2 -3 years, denies drug use, lives in a group home Objective - Vital Signs/Intake and Output Vital Signs (last 24 hours): Temp Pulse Resp BP Pulse Ox 98.2 F 102 H 18 145/87 99 06/23/18 07:00 06/23/18 07:00 06/23/18 07:00 06/23/18 07:00 06/23/18 07:00 - Medications Medications: Current Medications Albuterol/Ipratropium (Duoneb 3 Mg/0.5 Mg (3 Ml) Ud) 3 ml INH RQ6 [facility] Last Admin: 06/23/18 07:58 Dose: 3 ml Apixaban (Eliquis) 5 mg PO DAILY [facility] Last Admin: 06/22/18 09:36 Dose: 5 mg Budesonide (Pulmicort Respules) 0.5 mg INH RQ12 [facility] Last Admin: 06/23/18 07:58 Dose: 0.5 mg Colchicine (Colocrys) 0.6 mg PO DAILY [facility] Last Admin: 06/22/18 10:43 Dose: 0.6 mg Dextrose (Dextrose 50% Inj) 0 ml IV STAT PRN; Protocol PRN Reason: Hypoglycemia Protocol Dextrose (Glutose 15) 0 gm PO ONCE PRN; Protocol PRN Reason: Hypoglycemia Protocol Diltiazem HCl (Cardizem Cd) 240 mg PO DAILY [facility] Last Admin: 06/22/18 09:36 Dose: 240 mg Gabapentin (Neurontin) 300 mg PO BID [facility] Last Admin: 06/22/18 17:58 Dose: 300 mg Glimepiride (Amaryl) 2 mg PO DAILY [facility] Last Admin: 06/22/18 09:36 Dose: 2 mg Glucagon (Glucagen Diagnostic Kit) 0 mg IM STAT PRN; Protocol PRN Reason: Hypoglycemia Protocol Vancomycin/Sodium Chloride (Vancomycin 1 Gm/Ns 200 Ml) 1 gm in 200 mls @ 133.333 mls/hr IVPB Q24H [facility] PRN Reason: Protocol Stop: 06/27/18 01:31 Last Admin: 06/23/18 00:32 Dose: 133.333 mls/hr Clindamycin Phosphate 600 mg/ (Sodium Chloride) 54 mls @ 100 mls/hr IVPB Q8H [facility] PRN Reason: Protocol Last Admin: 06/23/18 08:54 Dose: 100 mls/hr Dextrose (Dextrose 5% In Water 1000 Ml) 1,000 mls @ 0 mls/hr IV .Q0M PRN; Protocol; Per Protocol PRN Reason: Hypoglycemia Protocol Insulin Aspart (Novolog) 0 unit SC ACHS [facility] PRN Reason: Protocol Last Admin: 06/23/18 08:15 Dose: 1 unit Losartan Potassium (Cozaar) 100 mg PO DAILY [facility] Last Admin: 06/22/18 09:36 Dose: 100 mg Metformin HCl (Glucophage) 500 mg PO BID [facility] Last Admin: 06/22/18 17:58 Dose: 500 mg Methylprednisolone (Solu-Medrol) 40 mg IVP Q8 [facility] Last Admin: 06/23/18 06:40 Dose: 40 mg Pantoprazole Sodium (Protonix Ec Tab) 40 mg PO DAILY [facility] Last Admin: 06/22/18 09:36 Dose: 40 mg Pneumococcal Polyvalent Vaccine (Pneumovax 23 Vaccine) 0.5 ml IM .ONCE ONE Stop: 06/24/18 14:01 - Labs Labs: 06/23/18 08:28 06/23/18 08:28 PT 13.6 SECONDS (9.7-12.2) H 06/21/18 22:48 INR 1.2 06/21/18 22:48 APTT 33 SECONDS (21-34) 06/21/18 22:48 - Constitutional Appears: Non-toxic, No Acute Distress - Head Exam Head Exam: ATRAUMATIC, NORMAL INSPECTION, NORMOCEPHALIC - Eye Exam Eye Exam: EOMI, Normal appearance - ENT Exam ENT Exam: Mucous Membranes Moist - Respiratory Exam Respiratory Exam: Decreased Breath Sounds, Rhonchi - Cardiovascular Exam Cardiovascular Exam: REGULAR RHYTHM, RRR, +S1, +S2 - GI/Abdominal Exam GI & Abdominal Exam: Soft, Normal Bowel Sounds. absent: Tenderness - Back Exam Additional comments: left upper back wound with pus - Neurological Exam Neurological Exam: Alert, Awake, Oriented x3 - Psychiatric Exam Psychiatric exam: Normal Affect, Normal Mood - Skin Skin Exam: Dry, Warm Additional comments: LE erythema and dryness Assessment and Plan - Assessment and Plan (Free Text) Assessment: LE Cellulitis -Vanco 1 gm daily -venous and arterial dopplers negative -ID, Dr. Morton consulted, help appreciated -vascular consulted, help appreciated Back Wound -MRSA and enterobacter cloacae on 06/14 -wound care -Vanco 1 gm daily -ID, Dr. Morton consulted, help appreciated DMII -Metformin 500mg po BID -ISS -Glimepiride 2mg po daily -accuchecks -hypoglycemia protocol Afib -Cardizem 240mg po daily -Eliquis 5mg po daily HTN -Cozaar 100mg po daily Hx Gout -Colchicine .6mg po daily SOB -2/2 COPD -Solu-Medrol decreased to 40mg ivp q12h (from 40mg ivp q8h) -Duonebs q6h -Pulmicort respules q12h Prophylaxis on Eliquis Protonix 40mg po daily management as per Dr. Conley
[2018-06-23] MEDS: diltiaZEM 240 mg/24 Hours CD Cap PO SCH (10:04)
[2018-06-23] MEDS: Pantoprazole 40 mg EC Tab PO SCH (10:04)
[2018-06-23] MEDS ORDERED: MethylPREDNISolone 40 mg Vial IVP SCH (14:15)
--- NOTE | 2018-06-23 17:24 | CP.PCM.PN ---
Subjective - Date & Time of Evaluation Date of Evaluation: 06/23/18 Time of Evaluation: 09:00 - Subjective Subjective: clinically same Objective - Vital Signs/Intake and Output Vital Signs (last 24 hours): Temp Pulse Resp BP Pulse Ox 98.1 F 107 H 21 123/76 99 06/23/18 15:30 06/23/18 15:30 06/23/18 15:30 06/23/18 15:30 06/23/18 15:30 - Medications Medications: Current Medications Albuterol/Ipratropium (Duoneb 3 Mg/0.5 Mg (3 Ml) Ud) 3 ml INH RQ6 [facility] Last Admin: 06/23/18 14:00 Dose: 3 ml Apixaban (Eliquis) 5 mg PO DAILY [facility] Last Admin: 06/23/18 10:04 Dose: 5 mg Budesonide (Pulmicort Respules) 0.5 mg INH RQ12 [facility] Last Admin: 06/23/18 07:58 Dose: 0.5 mg Colchicine (Colocrys) 0.6 mg PO DAILY [facility] Last Admin: 06/23/18 10:05 Dose: 0.6 mg Dextrose (Dextrose 50% Inj) 0 ml IV STAT PRN; Protocol PRN Reason: Hypoglycemia Protocol Dextrose (Glutose 15) 0 gm PO ONCE PRN; Protocol PRN Reason: Hypoglycemia Protocol Diltiazem HCl (Cardizem Cd) 240 mg PO DAILY [facility] Last Admin: 06/23/18 10:04 Dose: 240 mg Gabapentin (Neurontin) 300 mg PO BID [facility] Last Admin: 06/23/18 10:04 Dose: 300 mg Glimepiride (Amaryl) 2 mg PO DAILY [facility] Last Admin: 06/23/18 10:04 Dose: 2 mg Glucagon (Glucagen Diagnostic Kit) 0 mg IM STAT PRN; Protocol PRN Reason: Hypoglycemia Protocol Vancomycin/Sodium Chloride (Vancomycin 1 Gm/Ns 200 Ml) 1 gm in 200 mls @ 133.333 mls/hr IVPB Q24H [facility] PRN Reason: Protocol Stop: 06/27/18 01:31 Last Admin: 06/23/18 00:32 Dose: 133.333 mls/hr Clindamycin Phosphate 600 mg/ (Sodium Chloride) 54 mls @ 100 mls/hr IVPB Q8H [facility] PRN Reason: Protocol Last Admin: 06/23/18 15:32 Dose: 100 mls/hr Dextrose (Dextrose 5% In Water 1000 Ml) 1,000 mls @ 0 mls/hr IV .Q0M PRN; Protocol; Per Protocol PRN Reason: Hypoglycemia Protocol Insulin Aspart (Novolog) 0 unit SC ACHS [facility] PRN Reason: Protocol Last Admin: 06/23/18 16:38 Dose: Not Given Losartan Potassium (Cozaar) 100 mg PO DAILY [facility] Last Admin: 06/23/18 10:04 Dose: 100 mg Metformin HCl (Glucophage) 500 mg PO BID [facility] Last Admin: 06/23/18 10:04 Dose: 500 mg Methylprednisolone (Solu-Medrol) 40 mg IVP Q12 [facility] Last Admin: 06/23/18 14:55 Dose: Not Given Pantoprazole Sodium (Protonix Ec Tab) 40 mg PO DAILY [facility] Last Admin: 06/23/18 10:04 Dose: 40 mg Pneumococcal Polyvalent Vaccine (Pneumovax 23 Vaccine) 0.5 ml IM .ONCE ONE Stop: 06/24/18 14:01 - Labs Labs: 06/23/18 08:28 06/23/18 08:28 PT 13.6 SECONDS (9.7-12.2) H 06/21/18 22:48 INR 1.2 06/21/18 22:48 APTT 33 SECONDS (21-34) 06/21/18 22:48 - Constitutional Appears: Well - Head Exam Head Exam: ATRAUMATIC, NORMAL INSPECTION, NORMOCEPHALIC - Eye Exam Eye Exam: EOMI, Normal appearance, PERRL Pupil Exam: NORMAL ACCOMODATION, PERRL - ENT Exam ENT Exam: Mucous Membranes Moist, Normal Exam - Neck Exam Neck Exam: Full ROM, Normal Inspection. absent: Lymphadenopathy - Respiratory Exam Respiratory Exam: Decreased Breath Sounds - Cardiovascular Exam Cardiovascular Exam: REGULAR RHYTHM, +S1, +S2 - GI/Abdominal Exam GI & Abdominal Exam: Soft, Diminished Bowel Sounds - Rectal Exam Rectal Exam: Deferred
--- NOTE | 2018-06-23 20:01 | CP.PCM.PN ---
Subjective - Date & Time of Evaluation Date of Evaluation: 06/23/18 Time of Evaluation: 07:00 - Subjective Subjective: 53 year old male PMH IDDM, HepC, HTN, hypercholesterolemia presents today with bilateral leg pain with redness and swelling. He was recently seen a week ago (06/14) at both [place] [facility] EDs for worsening back wound which cultured MRSA and enterobacter cloacae. He was discharged before being able to start an appropriate antibiotic course. c/o increased sob cough denies chest pain legs are less swollen less red Objective - Vital Signs/Intake and Output Vital Signs (last 24 hours): Temp Pulse Resp BP Pulse Ox 98.1 F 123 H 22 149/85 96 06/23/18 15:30 06/23/18 19:08 06/23/18 19:08 06/23/18 19:08 06/23/18 19:08 - Medications Medications: Current Medications Albuterol/Ipratropium (Duoneb 3 Mg/0.5 Mg (3 Ml) Ud) 3 ml INH RQ6 [facility] Last Admin: 06/23/18 14:00 Dose: 3 ml Apixaban (Eliquis) 5 mg PO DAILY [facility] Last Admin: 06/23/18 10:04 Dose: 5 mg Budesonide (Pulmicort Respules) 0.5 mg INH RQ12 [facility] Last Admin: 06/23/18 07:58 Dose: 0.5 mg Colchicine (Colocrys) 0.6 mg PO DAILY [facility] Last Admin: 06/23/18 10:05 Dose: 0.6 mg Dextrose (Dextrose 50% Inj) 0 ml IV STAT PRN; Protocol PRN Reason: Hypoglycemia Protocol Dextrose (Glutose 15) 0 gm PO ONCE PRN; Protocol PRN Reason: Hypoglycemia Protocol Diltiazem HCl (Cardizem Cd) 240 mg PO DAILY [facility] Last Admin: 06/23/18 10:04 Dose: 240 mg Gabapentin (Neurontin) 300 mg PO BID [facility] Last Admin: 06/23/18 17:51 Dose: 300 mg Glimepiride (Amaryl) 2 mg PO DAILY [facility] Last Admin: 06/23/18 10:04 Dose: 2 mg Glucagon (Glucagen Diagnostic Kit) 0 mg IM STAT PRN; Protocol PRN Reason: Hypoglycemia Protocol Vancomycin/Sodium Chloride (Vancomycin 1 Gm/Ns 200 Ml) 1 gm in 200 mls @ 133.333 mls/hr IVPB Q24H [facility] PRN Reason: Protocol Stop: 06/27/18 01:31 Last Admin: 06/23/18 00:32 Dose: 133.333 mls/hr Clindamycin Phosphate 600 mg/ (Sodium Chloride) 54 mls @ 100 mls/hr IVPB Q8H [facility] PRN Reason: Protocol Last Admin: 06/23/18 15:32 Dose: 100 mls/hr Dextrose (Dextrose 5% In Water 1000 Ml) 1,000 mls @ 0 mls/hr IV .Q0M PRN; Protocol; Per Protocol PRN Reason: Hypoglycemia Protocol Insulin Aspart (Novolog) 0 unit SC ACHS [facility] PRN Reason: Protocol Last Admin: 06/23/18 16:38 Dose: Not Given Losartan Potassium (Cozaar) 100 mg PO DAILY [facility] Last Admin: 06/23/18 10:04 Dose: 100 mg Metformin HCl (Glucophage) 500 mg PO BID [facility] Last Admin: 06/23/18 17:51 Dose: 500 mg Methylprednisolone (Solu-Medrol) 40 mg IVP Q12 [facility] Last Admin: 06/23/18 14:55 Dose: Not Given Pantoprazole Sodium (Protonix Ec Tab) 40 mg PO DAILY [facility] Last Admin: 06/23/18 10:04 Dose: 40 mg Pneumococcal Polyvalent Vaccine (Pneumovax 23 Vaccine) 0.5 ml IM .ONCE ONE Stop: 06/24/18 14:01 - Labs Labs: 06/23/18 08:28 06/23/18 08:28 PT 13.6 SECONDS (9.7-12.2) H 06/21/18 22:48 INR 1.2 06/21/18 22:48 APTT 33 SECONDS (21-34) 06/21/18 22:48 - Constitutional Appears: Non-toxic, Chronically Ill - Head Exam Head Exam: NORMOCEPHALIC - Eye Exam Eye Exam: PERRL - ENT Exam ENT Exam: Mucous Membranes Dry - Neck Exam Neck Exam: absent: Lymphadenopathy - Respiratory Exam Respiratory Exam: Decreased Breath Sounds, Prolonged Expiratory Phase, Rhonchi - Cardiovascular Exam Cardiovascular Exam: REGULAR RHYTHM, +S1, +S2 - GI/Abdominal Exam GI & Abdominal Exam: Distended, Soft. absent: Tenderness - Rectal Exam Rectal Exam: Deferred - Exam Exam: NORMAL INSPECTION - Extremities Exam Extremities Exam: Pedal Edema. absent: Calf Tenderness, Tenderness - Back Exam Back Exam: absent: CVA tenderness (L), CVA tenderness (R) - Neurological Exam Neurological Exam: Alert, Awake, Oriented x3 Assessment and Plan (1) Cellulitis of lower extremity Status: Acute (2) PVD (peripheral vascular disease) Status: Acute (3) Chronic foot ulcer Status: Acute (4) Diabetes Status: Acute - Assessment and Plan (Free Text) Assessment: worsening sob chf/copd r/o pneumonia cont iv antibiotics stat pulm eval Dr Mai
[2018-06-23 20:27] LABS: ARTERIAL BLOOD GAS HCO3 23.1 mmol/L (21-28); ARTERIAL BLOOD GAS O2 SAT 98.8 % (95-98); ARTERIAL BLOOD GAS PCO2 32 mm/Hg (35-45); ARTERIAL BLOOD GAS PH 7.43 (7.35-7.45); ARTERIAL BLOOD GAS PO2 97 mm/Hg (80-100); ARTERIAL BLOOD GAS TCO2 22.2 mmol/L (22-28)
[2018-06-23] MEDS: Aztreonam 1 GM in Sodium Chloride 0.9% 100 ML IVPB SCH (21:11)
[2018-06-23] MEDS ORDERED: Iodixanol 320 MG/ML 100 ML BOTTLE IV ONE (21:21)
[2018-06-24] MEDS: Vancomycin 1 gm/NS 200 ml 1 GM/200 ML BAG IVPB SCH (02:00)
[2018-06-24] MEDS: Albuterol-Ipratrop 3 mg / 0.5 (3 ml) UD INH SCH ×5 (02:30→19:53)
[2018-06-24] MEDS: Aztreonam 1 GM in Sodium Chloride 0.9% 100 ML IVPB SCH ×3 (04:49→20:25)
[2018-06-24] MEDS: MethylPREDNISolone 40 mg Vial IVP SCH ×3 (05:50→21:53)
[2018-06-24] MEDS: (Novolog) Insulin Aspart, Recombinant 100 u/ml 10 ml vial SC SCH ×4 (07:30→21:53)
[2018-06-24 07:42] LABS: BASO % 0.1 % (0.0-2.0); HEMOGLOBIN 12.5 g/dL (12.0-18.0); LYMPH # 0.7 K/uL (1.0-4.3); LYMPH % 7.1 % (20.0-40.0); MEAN CELL VOLUME 91.5 fL (80.0-94.0); MEAN CORPUSCULAR HEMOGLOBIN 30.7 pg (27.0-31.0); MEAN CORPUSCULAR HGB CONC 33.5 g/dL (33.0-37.0); MONO # 0.3 K/uL (0.0-0.8); MONO % 2.6 % (0.0-10.0); NEUT # 9.4 K/uL (1.8-7.0); NEUT % 90.2 % (50.0-75.0); PLATELET COUNT 176 K/uL (130-400); RBC 4.06 Mil/uL (4.40-5.90); RED CELL DISTRIBUTION WIDTH 15.6 % (11.5-14.5)
[2018-06-24 07:45] LABS: WHITE BLOOD COUNT 10.4 K/uL (4.8-10.8)
[2018-06-24 07:59] LABS: ALB/GLOB RATIO 1.4 (1.0-2.1); ALBUMIN 3.8 g/dL (3.5-5.0); ALT/SGPT 24 U/L (21-72); AST/SGOT 16 U/L (17-59); BLOOD UREA NITROGEN 20 mg/dL (9-20); CALCIUM 10.9 mg/dl (8.6-10.4); GFR AFRICAN-AMERICAN > 60; GFR NON-AFRICAN AMERICAN 57
[2018-06-24] MEDS: Budesonide 0.5 mg/2 ml Inhal Susp UD INH SCH ×2 (08:20→19:53)
--- NOTE | 2018-06-24 09:16 | CT ---
Date of service: 06/23/2018 PROCEDURE: CT Chest with contrast (Pulmonary Angiogram) HISTORY: R/O PE COMPARISON: None available. TECHNIQUE: Axial computed tomography images were obtained of the chest in the pulmonary arterial phase of enhancement. Coronal and sagittal reformatted images were created and reviewed. Intravenous contrast dose: 100 cc Visipaque 320 Radiation dose: Total exam DLP = 578.54 mGy-cm. This CT exam was performed using one or more of the following dose reduction techniques: Automated exposure control, adjustment of the mA and/or kV according to patient size, and/or use of iterative reconstruction technique. FINDINGS: PULMONARY ARTERIES: Unremarkable. No pulmonary embolism. AORTA: No acute findings. No thoracic aortic aneurysm. LUNGS: Unremarkable. No nodule, mass or pulmonary consolidation. PLEURAL SPACES: Small to medium-sized right and slightly smaller left-sided effusion. Minor bibasilar atelectasis. HEART: Heart is enlarged. No significant pericardial effusion. LYMPH NODES: Few small nonspecific mediastinal lymph nodes. BONES, CHEST WALL: Multilevel degenerative spondylosis of the thoracic spine. OTHER FINDINGS: Unremarkable. IMPRESSION: No evidence of acute central pulmonary embolus. Small to medium size right-sided effusion and slightly smaller left-sided effusion with bibasilar atelectasis. Cardiomegaly.
[2018-06-24 09:45] LABS: ANISOCYTOSIS SLIGHT; BANDS 5 % (0-2); LARGE PLATELETS PRESENT; LYMPHOCYTE 7 % (20-40); MONOCYTE 4 % (0-10); NEUTROPHIL 84 % (50-75); PLATELET ESTIMATE NORMAL (NORMAL); TOTAL CELLS COUNTED 100
--- NOTE | 2018-06-24 09:45 | CP.PCM.PN ---
Subjective - Date & Time of Evaluation Date of Evaluation: 06/24/18 Time of Evaluation: 07:00 - Subjective Subjective: PGY2- Progress Note for Dr. Conley Patient seen and examined at bedside. Patient says he is feeling much less short of breath compared to last night. Patient has no complaints. Patient denies chest pain, abdominal pain, nausea, vomiting, constipation, or diarrhea. Objective - Vital Signs/Intake and Output Vital Signs (last 24 hours): Temp Pulse Resp BP Pulse Ox 97.9 F 107 H 20 156/91 H 98 06/24/18 08:00 06/24/18 08:00 06/24/18 08:00 06/24/18 08:00 06/24/18 08:00 - Medications Medications: Current Medications Albuterol/Ipratropium (Duoneb 3 Mg/0.5 Mg (3 Ml) Ud) 3 ml INH RQ6 [facility] Last Admin: 06/24/18 08:20 Dose: 3 ml Apixaban (Eliquis) 5 mg PO DAILY [facility] Last Admin: 06/23/18 10:04 Dose: 5 mg Budesonide (Pulmicort Respules) 0.5 mg INH RQ12 [facility] Last Admin: 06/24/18 08:20 Dose: 0.5 mg Colchicine (Colocrys) 0.6 mg PO DAILY [facility] Last Admin: 06/23/18 10:05 Dose: 0.6 mg Dextrose (Dextrose 50% Inj) 0 ml IV STAT PRN; Protocol PRN Reason: Hypoglycemia Protocol Dextrose (Glutose 15) 0 gm PO ONCE PRN; Protocol PRN Reason: Hypoglycemia Protocol Diltiazem HCl (Cardizem Cd) 240 mg PO DAILY [facility] Last Admin: 06/23/18 10:04 Dose: 240 mg Gabapentin (Neurontin) 300 mg PO BID [facility] Last Admin: 06/23/18 17:51 Dose: 300 mg Glimepiride (Amaryl) 2 mg PO DAILY [facility] Last Admin: 06/23/18 10:04 Dose: 2 mg Glucagon (Glucagen Diagnostic Kit) 0 mg IM STAT PRN; Protocol PRN Reason: Hypoglycemia Protocol Vancomycin/Sodium Chloride (Vancomycin 1 Gm/Ns 200 Ml) 1 gm in 200 mls @ 133.333 mls/hr IVPB Q24H [facility] PRN Reason: Protocol Stop: 06/27/18 01:31 Last Admin: 06/24/18 02:00 Dose: 133.333 mls/hr Clindamycin Phosphate 600 mg/ (Sodium Chloride) 54 mls @ 100 mls/hr IVPB Q8H [facility] PRN Reason: Protocol Last Admin: 06/24/18 00:31 Dose: 100 mls/hr Dextrose (Dextrose 5% In Water 1000 Ml) 1,000 mls @ 0 mls/hr IV .Q0M PRN; Protocol; Per Protocol PRN Reason: Hypoglycemia Protocol Aztreonam 1 gm/ Sodium (Chloride) 100 mls @ 200 mls/hr IVPB Q8H [facility] PRN Reason: Protocol Last Admin: 06/24/18 04:49 Dose: 200 mls/hr Insulin Aspart (Novolog) 0 unit SC ACHS [facility] PRN Reason: Protocol Last Admin: 06/23/18 21:41 Dose: Not Given Losartan Potassium (Cozaar) 100 mg PO DAILY [facility] Last Admin: 06/23/18 10:04 Dose: 100 mg Metformin HCl (Glucophage) 500 mg PO BID [facility] Last Admin: 06/23/18 17:51 Dose: 500 mg Methylprednisolone (Solu-Medrol) 40 mg IVP Q8 [facility] Last Admin: 06/24/18 05:50 Dose: 40 mg Pantoprazole Sodium (Protonix Ec Tab) 40 mg PO DAILY [facility] Last Admin: 06/23/18 10:04 Dose: 40 mg Pneumococcal Polyvalent Vaccine (Pneumovax 23 Vaccine) 0.5 ml IM .ONCE ONE Stop: 06/24/18 14:01 - Labs Labs: 06/24/18 07:31 06/24/18 07:31 PT 13.6 SECONDS (9.7-12.2) H 06/21/18 22:48 INR 1.2 06/21/18 22:48 APTT 33 SECONDS (21-34) 06/21/18 22:48 - Constitutional Appears: Non-toxic, No Acute Distress - Head Exam Head Exam: ATRAUMATIC, NORMAL INSPECTION, NORMOCEPHALIC - Eye Exam Eye Exam: EOMI, Normal appearance - ENT Exam ENT Exam: Mucous Membranes Moist - Respiratory Exam Respiratory Exam: Decreased Breath Sounds, NORMAL BREATHING PATTERN - Cardiovascular Exam Cardiovascular Exam: Tachycardia, Irregular Rhythm, +S1, +S2 - GI/Abdominal Exam GI & Abdominal Exam: Soft, Normal Bowel Sounds. absent: Tenderness - Extremities Exam Extremities Exam: Full ROM. absent: Pedal Edema - Back Exam Additional comments: left upper back wound covered with clean, dry, intact dressing - Neurological Exam Neurological Exam: Alert, Awake, Oriented x3 - Psychiatric Exam Psychiatric exam: Normal Affect, Normal Mood - Skin Skin Exam: Dry, Warm Additional comments: le erythema and dry skin Assessment and Plan - Assessment and Plan (Free Text) Assessment: LE Cellulitis -Vanco 1 gm daily -venous and arterial dopplers negative -ID, Dr. Morton consulted, help appreciated -vascular consulted, help appreciated -Venous duplex: no evidence of deep or superficial vein thrombosis, normal valve function -LE arterial ultrasound: no evidence of hemodynamically significant arterial insufficiency SOB -2/2 COPD -Dr. Mai consulted, help appreciated -CTA: no evidence of acute central pulmonary embolus. small to medium size right sided effusion and slightly smaller left sided effusion with bibasilar atelectasis. cardiomegaly. -Cardio consult, help appreciated -Solu-Medrol 40mg ivp q8h -Duonebs q6h -Pulmicort respules q12h Back Wound -MRSA and enterobacter cloacae on 06/14 -wound care -Vanco 1 gm daily -ID, Dr. Morton consulted, help appreciated DMII -Metformin 500mg po BID -ISS -Glimepiride 2mg po daily -accuchecks -hypoglycemia protocol Afib -Cardizem 240mg po daily -Eliquis 5mg po daily -Cardio consulted, help appreciated HTN -Cozaar 100mg po daily Hx Gout -Colchicine .6mg po daily Prophylaxis on Eliquis Protonix 40mg po daily management as per Dr. Conley
[2018-06-24] MEDS: Pantoprazole 40 mg EC Tab PO SCH (10:14)
[2018-06-24] MEDS: diltiaZEM 240 mg/24 Hours CD Cap PO SCH (10:17)
--- NOTE | 2018-06-24 11:37 | RAD ---
Date of service: 06/23/2018 HISTORY: S.O.B COMPARISON: No prior. FINDINGS: LUNGS: No active pulmonary disease. PLEURA: No significant pleural effusion identified, no pneumothorax apparent. CARDIOVASCULAR: Normal. OSSEOUS STRUCTURES: No significant abnormalities. VISUALIZED UPPER ABDOMEN: Normal. OTHER FINDINGS: None. IMPRESSION: No active disease.
--- NOTE | 2018-06-24 12:04 | CP.PCM.CON ---
History of Present Illness - History of Present Illness History of Present Illness: reason for consultation: shortness of breath 53-year-old Lithuanian-speaking male past medical history of COPD, diabetes, hypertension presented to the ER with a complaint of worsening bilateral leg pain, redness, and swelling. last night patient developed shortness of breath and palpitation. CAT scan of the chest showed no pulmonary embolism but small bilateral pleural effusions and cardiomegaly PMHx: DM, Hep C?, HTN PSHx: Hernia repair Social: Alcohol and Tobacco use ALL: PCN Review of Systems - Review of Systems All systems: reviewed and no additional remarkable complaints except (shortness of breath) Past Patient History - Infectious Disease Hx of Infectious Diseases: None - Past Social History Smoking Status: Current Some Days Smoker Alcohol: Social Drugs: Denies - CARDIAC Hx Hypercholesterolemia: Yes Hx Hypertension: Yes - ENDOCRINE/METABOLIC Hx Diabetes Mellitus Type 1: Yes - HEMATOLOGICAL/ONCOLOGICAL Hx Hepatitis C: Yes - INTEGUMENTARY Other/Comment: left foot ulcer - MUSCULOSKELETAL/RHEUMATOLOGICAL Hx Falls: No - PSYCHIATRIC Hx Depression: Yes Hx Substance Use: No - SURGICAL HISTORY Hx Herniorrhaphy: Yes - ANESTHESIA Hx Anesthesia: Yes Hx Anesthesia Reactions: No Meds Allergies/Adverse Reactions: Allergies Allergy/AdvReac Type Severity Reaction Status Date / Time Penicillins Allergy RASH Verified 06/21/18 21:27 - Medications Medications: Current Medications Albuterol/Ipratropium (Duoneb 3 Mg/0.5 Mg (3 Ml) Ud) 3 ml INH RQ6 [facility] Last Admin: 06/24/18 08:20 Dose: 3 ml Apixaban (Eliquis) 5 mg PO DAILY [facility] Last Admin: 06/24/18 10:14 Dose: 5 mg Budesonide (Pulmicort Respules) 0.5 mg INH RQ12 [facility] Last Admin: 06/24/18 08:20 Dose: 0.5 mg Colchicine (Colocrys) 0.6 mg PO DAILY [facility] Last Admin: 06/24/18 10:14 Dose: 0.6 mg Dextrose (Dextrose 50% Inj) 0 ml IV STAT PRN; Protocol PRN Reason: Hypoglycemia Protocol Dextrose (Glutose 15) 0 gm PO ONCE PRN; Protocol PRN Reason: Hypoglycemia Protocol Diltiazem HCl (Cardizem Cd) 240 mg PO DAILY [facility] Last Admin: 06/24/18 10:17 Dose: 240 mg Gabapentin (Neurontin) 300 mg PO BID [facility] Last Admin: 06/24/18 10:14 Dose: 300 mg Glimepiride (Amaryl) 2 mg PO DAILY [facility] Last Admin: 06/24/18 10:14 Dose: 2 mg Glucagon (Glucagen Diagnostic Kit) 0 mg IM STAT PRN; Protocol PRN Reason: Hypoglycemia Protocol Vancomycin/Sodium Chloride (Vancomycin 1 Gm/Ns 200 Ml) 1 gm in 200 mls @ 133.333 mls/hr IVPB Q24H [facility] PRN Reason: Protocol Stop: 06/27/18 01:31 Last Admin: 06/24/18 02:00 Dose: 133.333 mls/hr Clindamycin Phosphate 600 mg/ (Sodium Chloride) 54 mls @ 100 mls/hr IVPB Q8H [facility] PRN Reason: Protocol Last Admin: 06/24/18 08:15 Dose: 100 mls/hr Dextrose (Dextrose 5% In Water 1000 Ml) 1,000 mls @ 0 mls/hr IV .Q0M PRN; Protocol; Per Protocol PRN Reason: Hypoglycemia Protocol Aztreonam 1 gm/ Sodium (Chloride) 100 mls @ 200 mls/hr IVPB Q8H [facility] PRN Reason: Protocol Last Admin: 06/24/18 04:49 Dose: 200 mls/hr Insulin Aspart (Novolog) 0 unit SC ACHS [facility] PRN Reason: Protocol Last Admin: 06/23/18 21:41 Dose: Not Given Losartan Potassium (Cozaar) 100 mg PO DAILY [facility] Last Admin: 06/24/18 10:14 Dose: 100 mg Metformin HCl (Glucophage) 500 mg PO BID [facility] Last Admin: 06/24/18 10:14 Dose: 500 mg Methylprednisolone (Solu-Medrol) 40 mg IVP Q8 [facility] Last Admin: 06/24/18 05:50 Dose: 40 mg Pantoprazole Sodium (Protonix Ec Tab) 40 mg PO DAILY [facility] Last Admin: 06/24/18 10:14 Dose: 40 mg Pneumococcal Polyvalent Vaccine (Pneumovax 23 Vaccine) 0.5 ml IM .ONCE ONE Stop: 06/24/18 14:01 Physical Exam - Head Exam Head Exam: ATRAUMATIC, NORMOCEPHALIC - ENT Exam ENT Exam: Mucous Membranes Moist - Neck Exam Neck exam: Positive for: Normal Inspection - Respiratory Exam Respiratory Exam: Rales, Rhonchi - Cardiovascular Exam Cardiovascular Exam: REGULAR RHYTHM - GI/Abdominal Exam GI & Abdominal Exam: Normal Bowel Sounds, Soft - Extremities Exam Extremities exam: Positive for: pedal edema Results - Vital Signs Recent Vital Signs: Last Vital Signs Temp 97.9 F 06/24/18 08:00 Pulse 106 H 06/24/18 10:18 Resp 20 06/24/18 08:00 BP 175/83 H 06/24/18 10:18 Pulse Ox 98 06/24/18 08:00 - Labs Result Diagrams: 06/24/18 07:31 06/24/18 07:31 Labs: Laboratory Results - last 24 hr 06/23/18 06/23/18 06/23/18 16:27 19:57 19:57 WBC RBC Hgb Hct MCV MCH MCHC RDW Plt Count MPV Neut % (Auto) Lymph % (Auto) [place] % (Auto) Eos % (Auto) Baso % (Auto) Neut # (Auto) Lymph # (Auto) [place] # (Auto) Eos # (Auto) Baso # (Auto) Neutrophils % (Manual) Band Neutrophils % Lymphocytes % (Manual) Monocytes % (Manual) Platelet Estimate Large Platelets Anisocytosis (manual) D-Dimer, Quantitative 516 H Puncture Site pCO2 pO2 HCO3 ABG pH ABG Total CO2 ABG O2 Saturation ABG Base Excess ABG Hemoglobin ABG Carboxyhemoglobin POC ABG HHb (Measured) ABG Methemoglobin Rafael Test A-a O2 Difference Respiratory Index Hgb O2 Saturation FiO2 Sodium Potassium Chloride Carbon Dioxide Anion Gap BUN Creatinine Est GFR ( Amer) Est GFR (Non-Af Amer) POC Glucose (mg/dL) 117 H Random Glucose Lactic Acid 4.3 H* Calcium Phosphorus Magnesium Total Bilirubin AST ALT Alkaline Phosphatase Total Protein Albumin Globulin Albumin/Globulin Ratio Vancomycin Trough 06/23/18 06/23/18 06/23/18 20:15 21:36 23:09 WBC RBC Hgb Hct MCV MCH MCHC RDW Plt Count MPV Neut % (Auto) Lymph % (Auto) [place] % (Auto) Eos % (Auto) Baso % (Auto) Neut # (Auto) Lymph # (Auto) [place] # (Auto) Eos # (Auto) Baso # (Auto) Neutrophils % (Manual) Band Neutrophils % Lymphocytes % (Manual) Monocytes % (Manual) Platelet Estimate Large Platelets Anisocytosis (manual) D-Dimer, Quantitative Puncture Site Right radial pCO2 32 L pO2 97 HCO3 23.1 ABG pH 7.43 ABG Total CO2 22.2 ABG O2 Saturation 98.8 H ABG Base Excess -2.3 L ABG Hemoglobin 13.0 ABG Carboxyhemoglobin 1.5 POC ABG HHb (Measured) 1.2 ABG Methemoglobin 1.1 Rafael Test Na A-a O2 Difference 13.0 Respiratory Index 0.1 Hgb O2 Saturation 96.2 FiO2 21.0 Sodium Potassium Chloride Carbon Dioxide Anion Gap BUN Creatinine Est GFR ( Amer) Est GFR (Non-Af Amer) POC Glucose (mg/dL) 122 H Random Glucose Lactic Acid 3.5 H Calcium Phosphorus Magnesium Total Bilirubin AST ALT Alkaline Phosphatase Total Protein Albumin Globulin Albumin/Globulin Ratio Vancomycin Trough 06/24/18 06/24/18 06/24/18 01:02 06:37 07:31 WBC 10.4 D RBC 4.06 L Hgb 12.5 Hct 37.2 MCV 91.5 MCH 30.7 MCHC 33.5 RDW 15.6 H Plt Count 176 MPV 10.0 Neut % (Auto) 90.2 H Lymph % (Auto) 7.1 L [place] % (Auto) 2.6 Eos % (Auto) 0.0 Baso % (Auto) 0.1 Neut # (Auto) 9.4 H Lymph # (Auto) 0.7 L [place] # (Auto) 0.3 Eos # (Auto) 0.0 Baso # (Auto) 0.0 Neutrophils % (Manual) 84 H Band Neutrophils % 5 H Lymphocytes % (Manual) 7 L Monocytes % (Manual) 4 Platelet Estimate Normal Large Platelets Present Anisocytosis (manual) Slight D-Dimer, Quantitative Puncture Site pCO2 pO2 HCO3 ABG pH ABG Total CO2 ABG O2 Saturation ABG Base Excess ABG Hemoglobin ABG Carboxyhemoglobin POC ABG HHb (Measured) ABG Methemoglobin Rafael Test A-a O2 Difference Respiratory Index Hgb O2 Saturation FiO2 Sodium Potassium Chloride Carbon Dioxide Anion Gap BUN Creatinine Est GFR ( Amer) Est GFR (Non-Af Amer) POC Glucose (mg/dL) 144 H Random Glucose Lactic Acid Calcium Phosphorus Magnesium Total Bilirubin AST ALT Alkaline Phosphatase Total Protein Albumin Globulin Albumin/Globulin Ratio Vancomycin Trough 5.1 06/24/18 07:31 WBC RBC Hgb Hct MCV MCH MCHC RDW Plt Count MPV Neut % (Auto) Lymph % (Auto) [place] % (Auto) Eos % (Auto) Baso % (Auto) Neut # (Auto) Lymph # (Auto) [place] # (Auto) Eos # (Auto) Baso # (Auto) Neutrophils % (Manual) Band Neutrophils % Lymphocytes % (Manual) Monocytes % (Manual) Platelet Estimate Large Platelets Anisocytosis (manual) D-Dimer, Quantitative Puncture Site pCO2 pO2 HCO3 ABG pH ABG Total CO2 ABG O2 Saturation ABG Base Excess ABG Hemoglobin ABG Carboxyhemoglobin POC ABG HHb (Measured) ABG Methemoglobin Rafael Test A-a O2 Difference Respiratory Index Hgb O2 Saturation FiO2 Sodium 143 Potassium 4.3 Chloride 107 Carbon Dioxide 25 Anion Gap 16 BUN 20 Creatinine 1.3 Est GFR ( Amer) > 60 Est GFR (Non-Af Amer) 57 POC Glucose (mg/dL) Random Glucose 152 H Lactic Acid Calcium 10.9 H Phosphorus 2.3 L Magnesium 1.9 Total Bilirubin 0.4 AST 16 L ALT 24 Alkaline Phosphatase 100 Total Protein 6.7 Albumin 3.8 Globulin 2.8 Albumin/Globulin Ratio 1.4 Vancomycin Trough Assessment & Plan (1) COPD exacerbation Status: Acute Comment: continue nebulizer treatment and STEROIDS. Patient advised to quit smoking (2) Pleural effusion Assessment and Plan: bilateral pleural effusion with cardiomegaly Echocardiogram [facility] evaluation Status: Acute
[2018-06-24] MEDS ORDERED: Pneumococcal 23-Valent Vaccine IM ONE (14:00)
[2018-06-24] MEDS ORDERED: Sodium Phosphate 15 MMOLE in Sodium Chloride 0.9% 250 ML IVPB ONE (16:00)
--- NOTE | 2018-06-24 18:11 | CP.PCM.PN ---
Subjective - Date & Time of Evaluation Date of Evaluation: 06/24/18 Time of Evaluation: 10:00 - Subjective Subjective: s/p code sepsis PE workup negative less sob today no fever legs less swollen wound on back with min drainage Objective - Vital Signs/Intake and Output Vital Signs (last 24 hours): Temp Pulse Resp BP Pulse Ox 98 F 106 H 18 151/92 H 97 06/24/18 16:06 06/24/18 16:52 06/24/18 16:06 06/24/18 16:06 06/24/18 16:06 - Medications Medications: Current Medications Albuterol/Ipratropium (Duoneb 3 Mg/0.5 Mg (3 Ml) Ud) 3 ml INH RQ6 [facility] Last Admin: 06/24/18 13:36 Dose: 3 ml Apixaban (Eliquis) 5 mg PO DAILY [facility] Last Admin: 06/24/18 10:14 Dose: 5 mg Budesonide (Pulmicort Respules) 0.5 mg INH RQ12 [facility] Last Admin: 06/24/18 08:20 Dose: 0.5 mg Colchicine (Colocrys) 0.6 mg PO DAILY [facility] Last Admin: 06/24/18 10:14 Dose: 0.6 mg Dextrose (Dextrose 50% Inj) 0 ml IV STAT PRN; Protocol PRN Reason: Hypoglycemia Protocol Dextrose (Glutose 15) 0 gm PO ONCE PRN; Protocol PRN Reason: Hypoglycemia Protocol Diltiazem HCl (Cardizem Cd) 240 mg PO DAILY [facility] Last Admin: 06/24/18 10:17 Dose: 240 mg Gabapentin (Neurontin) 300 mg PO BID [facility] Last Admin: 06/24/18 17:40 Dose: 300 mg Glimepiride (Amaryl) 2 mg PO DAILY [facility] Last Admin: 06/24/18 10:14 Dose: 2 mg Glucagon (Glucagen Diagnostic Kit) 0 mg IM STAT PRN; Protocol PRN Reason: Hypoglycemia Protocol Vancomycin/Sodium Chloride (Vancomycin 1 Gm/Ns 200 Ml) 1 gm in 200 mls @ 133.333 mls/hr IVPB Q24H [facility] PRN Reason: Protocol Stop: 06/27/18 01:31 Last Admin: 06/24/18 02:00 Dose: 133.333 mls/hr Clindamycin Phosphate 600 mg/ (Sodium Chloride) 54 mls @ 100 mls/hr IVPB Q8H [facility] PRN Reason: Protocol Last Admin: 06/24/18 16:03 Dose: 100 mls/hr Dextrose (Dextrose 5% In Water 1000 Ml) 1,000 mls @ 0 mls/hr IV .Q0M PRN; Protocol; Per Protocol PRN Reason: Hypoglycemia Protocol Aztreonam 1 gm/ Sodium (Chloride) 100 mls @ 200 mls/hr IVPB Q8H [facility] PRN Reason: Protocol Last Admin: 06/24/18 12:34 Dose: 200 mls/hr Sodium Phosphate 15 mmole/ (Sodium Chloride) 255 mls @ 50 mls/hr IVPB .Q5H6M ONE Stop: 06/24/18 21:05 Last Admin: 06/24/18 17:40 Dose: 50 mls/hr Insulin Aspart (Novolog) 0 unit SC ACHS [facility] PRN Reason: Protocol Last Admin: 06/24/18 16:40 Dose: Not Given Losartan Potassium (Cozaar) 100 mg PO DAILY [facility] Last Admin: 06/24/18 10:14 Dose: 100 mg Metformin HCl (Glucophage) 500 mg PO BID [facility] Last Admin: 06/24/18 17:39 Dose: 500 mg Methylprednisolone (Solu-Medrol) 40 mg IVP Q8 [facility] Last Admin: 06/24/18 13:43 Dose: 40 mg Pantoprazole Sodium (Protonix Ec Tab) 40 mg PO DAILY [facility] Last Admin: 06/24/18 10:14 Dose: 40 mg - Labs Labs: 06/24/18 07:31 06/24/18 07:31 PT 13.6 SECONDS (9.7-12.2) H 06/21/18 22:48 INR 1.2 06/21/18 22:48 APTT 33 SECONDS (21-34) 06/21/18 22:48 - Constitutional Appears: Non-toxic, Chronically Ill - Head Exam Head Exam: NORMOCEPHALIC - Eye Exam Eye Exam: absent: Scleral icterus - ENT Exam ENT Exam: Mucous Membranes Dry - Neck Exam Neck Exam: absent: Lymphadenopathy - Respiratory Exam Respiratory Exam: Decreased Breath Sounds - Cardiovascular Exam Cardiovascular Exam: REGULAR RHYTHM - GI/Abdominal Exam GI & Abdominal Exam: Distended, Soft - Rectal Exam Rectal Exam: Deferred - Exam Exam: NORMAL INSPECTION - Extremities Exam Extremities Exam: absent: Joint Swelling - Back Exam Back Exam: absent: CVA tenderness (L), CVA tenderness (R) - Neurological Exam Neurological Exam: Alert, Awake, CN II-XII Intact Assessment and Plan (1) Cellulitis of lower extremity Status: Acute (2) PVD (peripheral vascular disease) Status: Acute (3) Chronic foot ulcer Status: Acute (4) Diabetes Status: Acute - Assessment and Plan (Free Text) Assessment: cont iv rx await repeat blood cultures
--- NOTE | 2018-06-24 19:36 | CP.PCM.PN ---
Subjective - Date & Time of Evaluation Date of Evaluation: 06/24/18 Time of Evaluation: 08:30 - Subjective Subjective: clinically same Objective - Vital Signs/Intake and Output Vital Signs (last 24 hours): Temp Pulse Resp BP Pulse Ox 98 F 106 H 18 151/92 H 97 06/24/18 16:06 06/24/18 16:52 06/24/18 16:06 06/24/18 16:06 06/24/18 16:06 - Medications Medications: Current Medications Albuterol/Ipratropium (Duoneb 3 Mg/0.5 Mg (3 Ml) Ud) 3 ml INH RQ6 [facility] Last Admin: 06/24/18 13:36 Dose: 3 ml Apixaban (Eliquis) 5 mg PO DAILY [facility] Last Admin: 06/24/18 10:14 Dose: 5 mg Budesonide (Pulmicort Respules) 0.5 mg INH RQ12 [facility] Last Admin: 06/24/18 08:20 Dose: 0.5 mg Colchicine (Colocrys) 0.6 mg PO DAILY [facility] Last Admin: 06/24/18 10:14 Dose: 0.6 mg Dextrose (Dextrose 50% Inj) 0 ml IV STAT PRN; Protocol PRN Reason: Hypoglycemia Protocol Dextrose (Glutose 15) 0 gm PO ONCE PRN; Protocol PRN Reason: Hypoglycemia Protocol Diltiazem HCl (Cardizem Cd) 240 mg PO DAILY [facility] Last Admin: 06/24/18 10:17 Dose: 240 mg Gabapentin (Neurontin) 300 mg PO BID [facility] Last Admin: 06/24/18 17:40 Dose: 300 mg Glimepiride (Amaryl) 2 mg PO DAILY [facility] Last Admin: 06/24/18 10:14 Dose: 2 mg Glucagon (Glucagen Diagnostic Kit) 0 mg IM STAT PRN; Protocol PRN Reason: Hypoglycemia Protocol Vancomycin/Sodium Chloride (Vancomycin 1 Gm/Ns 200 Ml) 1 gm in 200 mls @ 133.333 mls/hr IVPB Q24H [facility] PRN Reason: Protocol Stop: 06/27/18 01:31 Last Admin: 06/24/18 02:00 Dose: 133.333 mls/hr Clindamycin Phosphate 600 mg/ (Sodium Chloride) 54 mls @ 100 mls/hr IVPB Q8H [facility] PRN Reason: Protocol Last Admin: 06/24/18 16:03 Dose: 100 mls/hr Dextrose (Dextrose 5% In Water 1000 Ml) 1,000 mls @ 0 mls/hr IV .Q0M PRN; Protocol; Per Protocol PRN Reason: Hypoglycemia Protocol Aztreonam 1 gm/ Sodium (Chloride) 100 mls @ 200 mls/hr IVPB Q8H [facility] PRN Reason: Protocol Last Admin: 06/24/18 12:34 Dose: 200 mls/hr Sodium Phosphate 15 mmole/ (Sodium Chloride) 255 mls @ 50 mls/hr IVPB .Q5H6M ONE Stop: 06/24/18 21:05 Last Admin: 06/24/18 17:40 Dose: 50 mls/hr Insulin Aspart (Novolog) 0 unit SC ACHS [facility] PRN Reason: Protocol Last Admin: 06/24/18 16:40 Dose: Not Given Losartan Potassium (Cozaar) 100 mg PO DAILY [facility] Last Admin: 06/24/18 10:14 Dose: 100 mg Metformin HCl (Glucophage) 500 mg PO BID [facility] Last Admin: 06/24/18 17:39 Dose: 500 mg Methylprednisolone (Solu-Medrol) 40 mg IVP Q8 [facility] Last Admin: 06/24/18 13:43 Dose: 40 mg Pantoprazole Sodium (Protonix Ec Tab) 40 mg PO DAILY [facility] Last Admin: 06/24/18 10:14 Dose: 40 mg - Labs Labs: 06/24/18 07:31 06/24/18 07:31 PT 13.6 SECONDS (9.7-12.2) H 06/21/18 22:48 INR 1.2 06/21/18 22:48 APTT 33 SECONDS (21-34) 06/21/18 22:48 - Constitutional Appears: Well - Head Exam Head Exam: ATRAUMATIC, NORMAL INSPECTION, NORMOCEPHALIC - Eye Exam Eye Exam: EOMI, Normal appearance, PERRL Pupil Exam: NORMAL ACCOMODATION, PERRL - ENT Exam ENT Exam: Mucous Membranes Moist, Normal Exam - Neck Exam Neck Exam: Full ROM, Normal Inspection. absent: Lymphadenopathy - Respiratory Exam Respiratory Exam: Decreased Breath Sounds - Cardiovascular Exam Cardiovascular Exam: REGULAR RHYTHM, +S1, +S2 - GI/Abdominal Exam GI & Abdominal Exam: Soft, Diminished Bowel Sounds - Rectal Exam Rectal Exam: Deferred
[2018-06-25] MEDS: Vancomycin 1 gm/NS 200 ml 1 GM/200 ML BAG IVPB SCH (00:33)
[2018-06-25] MEDS: Aztreonam 1 GM in Sodium Chloride 0.9% 100 ML IVPB SCH ×3 (05:05→20:05)
[2018-06-25] MEDS: MethylPREDNISolone 40 mg Vial IVP SCH ×3 (06:29→21:28)
[2018-06-25] MEDS: (Novolog) Insulin Aspart, Recombinant 100 u/ml 10 ml vial SC SCH ×5 (07:30→21:32)
[2018-06-25 07:33] LABS: HEMOGLOBIN 12.3 g/dL (12.0-18.0); LYMPH # 0.7 K/uL (1.0-4.3); LYMPH % 4.8 % (20.0-40.0); MEAN CELL VOLUME 91.7 fL (80.0-94.0); MEAN CORPUSCULAR HEMOGLOBIN 30.3 pg (27.0-31.0); MEAN CORPUSCULAR HGB CONC 33.1 g/dL (33.0-37.0); MEAN PLATELET VOLUME 10.1 fL (7.2-11.7); MONO # 0.5 K/uL (0.0-0.8); MONO % 3.3 % (0.0-10.0); NEUT # 13.9 K/uL (1.8-7.0); NEUT % 91.9 % (50.0-75.0); PLATELET COUNT 187 K/uL (130-400); RBC 4.07 Mil/uL (4.40-5.90); RED CELL DISTRIBUTION WIDTH 15.8 % (11.5-14.5); WHITE BLOOD COUNT 15.2 K/uL (4.8-10.8)
[2018-06-25 08:24] LABS: ALB/GLOB RATIO 1.2 (1.0-2.1); ALBUMIN 3.8 g/dL (3.5-5.0); ALT/SGPT 23 U/L (21-72); AST/SGOT 17 U/L (17-59); BLOOD UREA NITROGEN 25 mg/dL (9-20); CALCIUM 11.5 mg/dl (8.6-10.4); GFR AFRICAN-AMERICAN > 60; GFR NON-AFRICAN AMERICAN > 60
[2018-06-25] MEDS: Budesonide 0.5 mg/2 ml Inhal Susp UD INH SCH ×2 (08:30→19:57)
[2018-06-25] MEDS: Albuterol-Ipratrop 3 mg / 0.5 (3 ml) UD INH SCH ×3 (08:30→19:57)
[2018-06-25 09:07] LABS: ANISOCYTOSIS SLIGHT; BANDS 1 % (0-2); LARGE PLATELETS PRESENT; LYMPHOCYTE 5 % (20-40); MONOCYTE 3 % (0-10); NEUTROPHIL 91 % (50-75); PLATELET ESTIMATE NORMAL (NORMAL); TOTAL CELLS COUNTED 100
[2018-06-25 09:08] LABS: HYPOCHROMIC SLIGHT; POLYCHROMIC SLIGHT
--- NOTE | 2018-06-25 10:44 | CP.PCM.CON ---
History of Present Illness - History of Present Illness History of Present Illness: CC: Chest pain HPI: 53 year old man with pmx of COPD, HTN. He was admitted to [facility] for lower extremity and pleural effusions, he received lasix and is reporting improvement in his symptoms. He was reporting chest pain. Pain was located in the retrosternum. Pain was sharp in character. Pain occurs in random context. Review of Systems - Review of Systems All systems: reviewed and no additional remarkable complaints except Past Patient History - Infectious Disease Hx of Infectious Diseases: None - Past Social History Smoking Status: Current Some Days Smoker Alcohol: Social Drugs: Denies - CARDIAC Hx Hypercholesterolemia: Yes Hx Hypertension: Yes - ENDOCRINE/METABOLIC Hx Diabetes Mellitus Type 1: Yes - HEMATOLOGICAL/ONCOLOGICAL Hx Hepatitis C: Yes - INTEGUMENTARY Other/Comment: left foot ulcer - MUSCULOSKELETAL/RHEUMATOLOGICAL Hx Falls: No - PSYCHIATRIC Hx Depression: Yes Hx Substance Use: No - SURGICAL HISTORY Hx Herniorrhaphy: Yes - ANESTHESIA Hx Anesthesia: Yes Hx Anesthesia Reactions: No Meds Allergies/Adverse Reactions: Allergies Allergy/AdvReac Type Severity Reaction Status Date / Time Penicillins Allergy RASH Verified 05/31/18 17:13 - Medications Medications: Current Medications Albuterol/Ipratropium (Duoneb 3 Mg/0.5 Mg (3 Ml) Ud) 3 ml INH RQ6 [facility] Last Admin: 06/25/18 08:30 Dose: 3 ml Apixaban (Eliquis) 5 mg PO DAILY [facility] Last Admin: 06/24/18 10:14 Dose: 5 mg Budesonide (Pulmicort Respules) 0.5 mg INH RQ12 [facility] Last Admin: 06/25/18 08:30 Dose: 0.5 mg Colchicine (Colocrys) 0.6 mg PO DAILY [facility] Last Admin: 06/24/18 10:14 Dose: 0.6 mg Dextrose (Dextrose 50% Inj) 0 ml IV STAT PRN; Protocol PRN Reason: Hypoglycemia Protocol Dextrose (Glutose 15) 0 gm PO ONCE PRN; Protocol PRN Reason: Hypoglycemia Protocol Diltiazem HCl (Cardizem Cd) 240 mg PO DAILY [facility] Last Admin: 06/24/18 10:17 Dose: 240 mg Gabapentin (Neurontin) 300 mg PO BID [facility] Last Admin: 06/24/18 17:40 Dose: 300 mg Glimepiride (Amaryl) 2 mg PO DAILY [facility] Last Admin: 06/24/18 10:14 Dose: 2 mg Glucagon (Glucagen Diagnostic Kit) 0 mg IM STAT PRN; Protocol PRN Reason: Hypoglycemia Protocol Vancomycin/Sodium Chloride (Vancomycin 1 Gm/Ns 200 Ml) 1 gm in 200 mls @ 133.333 mls/hr IVPB Q24H [facility] PRN Reason: Protocol Stop: 06/27/18 01:31 Last Admin: 06/25/18 00:33 Dose: 133.333 mls/hr Clindamycin Phosphate 600 mg/ (Sodium Chloride) 54 mls @ 100 mls/hr IVPB Q8H [facility] PRN Reason: Protocol Last Admin: 06/25/18 00:33 Dose: 100 mls/hr Dextrose (Dextrose 5% In Water 1000 Ml) 1,000 mls @ 0 mls/hr IV .Q0M PRN; Protocol; Per Protocol PRN Reason: Hypoglycemia Protocol Aztreonam 1 gm/ Sodium (Chloride) 100 mls @ 200 mls/hr IVPB Q8H [facility] PRN Reason: Protocol Last Admin: 06/25/18 05:05 Dose: 200 mls/hr Insulin Aspart (Novolog) 0 unit SC ACHS [facility] PRN Reason: Protocol Last Admin: 06/24/18 21:53 Dose: Not Given Losartan Potassium (Cozaar) 100 mg PO DAILY [facility] Last Admin: 06/24/18 10:14 Dose: 100 mg Metformin HCl (Glucophage) 500 mg PO BID [facility] Last Admin: 06/24/18 17:39 Dose: 500 mg Methylprednisolone (Solu-Medrol) 40 mg IVP Q8 [facility] Last Admin: 06/25/18 06:29 Dose: 40 mg Pantoprazole Sodium (Protonix Ec Tab) 40 mg PO DAILY [facility] Last Admin: 06/24/18 10:14 Dose: 40 mg Physical Exam - Constitutional Appears: Well, Non-toxic - Head Exam Head Exam: ATRAUMATIC, NORMAL INSPECTION - Eye Exam Eye Exam: PERRL. absent: Scleral icterus - ENT Exam ENT Exam: Mucous Membranes Moist, Normal Oropharynx - Neck Exam Neck exam: Negative for: Full Rom, Thyromegaly - Respiratory Exam Respiratory Exam: Clear to Auscultation Bilateral, NORMAL BREATHING PATTERN - Cardiovascular Exam Cardiovascular Exam: REGULAR RHYTHM, RRR, +S1, +S2. absent: JVD Additional comments: Stasis dermatitis; Trace LE edema - GI/Abdominal Exam GI & Abdominal Exam: Normal Bowel Sounds, Organomegaly - Neurological Exam Neurological exam: CN II-XII Intact, Oriented x3 - Psychiatric Exam Psychiatric exam: Normal Affect, Normal Mood Results - Vital Signs Recent Vital Signs: Last Vital Signs Temp 97.8 F 06/25/18 07:00 Pulse 98 H 06/25/18 07:00 Resp 18 06/25/18 07:00 BP 168/90 H 06/25/18 07:00 Pulse Ox 97 06/25/18 07:00 - Labs Result Diagrams: 06/25/18 07:19 06/25/18 07:19 Labs: Laboratory Results - last 24 hr 06/24/18 06/24/18 06/25/18 11:54 16:38 07:19 WBC 15.2 H RBC 4.07 L Hgb 12.3 Hct 37.3 MCV 91.7 MCH 30.3 MCHC 33.1 RDW 15.8 H Plt Count 187 MPV 10.1 Neut % (Auto) 91.9 H Lymph % (Auto) 4.8 L [place] % (Auto) 3.3 Eos % (Auto) 0.0 Baso % (Auto) 0.0 Neut # (Auto) 13.9 H Lymph # (Auto) 0.7 L [place] # (Auto) 0.5 Eos # (Auto) 0.0 Baso # (Auto) 0.0 Neutrophils % (Manual) 91 H Band Neutrophils % 1 Lymphocytes % (Manual) 5 L Monocytes % (Manual) 3 Platelet Estimate Normal Large Platelets Present Polychromasia Slight Hypochromasia (manual) Slight Basophilic Stippling Slight Anisocytosis (manual) Slight Sodium Potassium Chloride Carbon Dioxide Anion Gap BUN Creatinine Est GFR ( Amer) Est GFR (Non-Af Amer) POC Glucose (mg/dL) 185 H 85 Random Glucose Calcium Phosphorus Magnesium Total Bilirubin AST ALT Alkaline Phosphatase Total Protein Albumin Globulin Albumin/Globulin Ratio 06/25/18 07:19 WBC RBC Hgb Hct MCV MCH MCHC RDW Plt Count MPV Neut % (Auto) Lymph % (Auto) [place] % (Auto) Eos % (Auto) Baso % (Auto) Neut # (Auto) Lymph # (Auto) [place] # (Auto) Eos # (Auto) Baso # (Auto) Neutrophils % (Manual) Band Neutrophils % Lymphocytes % (Manual) Monocytes % (Manual) Platelet Estimate Large Platelets Polychromasia Hypochromasia (manual) Basophilic Stippling Anisocytosis (manual) Sodium 144 Potassium 4.4 Chloride 106 Carbon Dioxide 25 Anion Gap 18 BUN 25 H Creatinine 1.2 Est GFR ( Amer) > 60 Est GFR (Non-Af Amer) > 60 POC Glucose (mg/dL) Random Glucose 109 Calcium 11.5 H Phosphorus 3.5 Magnesium 2.0 Total Bilirubin 0.3 AST 17 ALT 23 Alkaline Phosphatase 88 Total Protein 6.8 Albumin 3.8 Globulin 3.0 Albumin/Globulin Ratio 1.2 - EKG Data EKG Interpreted by: Myself (Atrail fibrillation) Rate: Tachycardia - Imaging and Cardiology Chest x-ray Additional comment: Pleural effusions Assessment & Plan - Assessment and Plan (Free Text) Assessment: 63 year old man with acute on chronic diastolic CHF obtain 2D echo, now improved with diuresis Pleural effusions acute likely transudative, now improved. HTN is chronic and stable on Cardizem and losartan Paroxysmal atrial fibrillation NOAC for CVA prophylaxis after 2D echo will need to consider rhythm control v continued rate control - Date & Time Date: 06/25/18 Time: 10:00
[2018-06-25 11:53] VITALS: BMI 34.9
[2018-06-25] MEDS: diltiaZEM 240 mg/24 Hours CD Cap PO SCH (13:47)
[2018-06-25] MEDS: Pantoprazole 40 mg EC Tab PO SCH (13:48)
--- NOTE | 2018-06-25 15:47 | CP.PCM.PN ---
Subjective - Date & Time of Evaluation Date of Evaluation: 06/25/18 Time of Evaluation: 09:00 - Subjective Subjective: clinically same Objective - Vital Signs/Intake and Output Vital Signs (last 24 hours): Temp Pulse Resp BP Pulse Ox 97.8 F 98 H 20 128/92 H 99 06/25/18 07:00 06/25/18 13:50 06/25/18 13:50 06/25/18 13:50 06/25/18 13:50 Intake and Output: 06/25/18 06/25/18 06:59 18:59 Intake Total 1300 580 Balance 1300 580 - Medications Medications: Current Medications Albuterol/Ipratropium (Duoneb 3 Mg/0.5 Mg (3 Ml) Ud) 3 ml INH RQ6 [facility] Last Admin: 06/25/18 13:26 Dose: 3 ml Apixaban (Eliquis) 5 mg PO DAILY [facility] Last Admin: 06/25/18 13:47 Dose: 5 mg Budesonide (Pulmicort Respules) 0.5 mg INH RQ12 [facility] Last Admin: 06/25/18 08:30 Dose: 0.5 mg Colchicine (Colocrys) 0.6 mg PO DAILY [facility] Last Admin: 06/25/18 13:46 Dose: 0.6 mg Dextrose (Dextrose 50% Inj) 0 ml IV STAT PRN; Protocol PRN Reason: Hypoglycemia Protocol Dextrose (Glutose 15) 0 gm PO ONCE PRN; Protocol PRN Reason: Hypoglycemia Protocol Diltiazem HCl (Cardizem Cd) 240 mg PO DAILY [facility] Last Admin: 06/25/18 13:47 Dose: 240 mg Gabapentin (Neurontin) 300 mg PO BID [facility] Last Admin: 06/25/18 10:00 Dose: Not Given Glimepiride (Amaryl) 2 mg PO DAILY [facility] Last Admin: 06/25/18 10:00 Dose: Not Given Glucagon (Glucagen Diagnostic Kit) 0 mg IM STAT PRN; Protocol PRN Reason: Hypoglycemia Protocol Vancomycin/Sodium Chloride (Vancomycin 1 Gm/Ns 200 Ml) 1 gm in 200 mls @ 133.333 mls/hr IVPB Q24H [facility] PRN Reason: Protocol Stop: 06/27/18 01:31 Last Admin: 06/25/18 00:33 Dose: 133.333 mls/hr Clindamycin Phosphate 600 mg/ (Sodium Chloride) 54 mls @ 100 mls/hr IVPB Q8H [facility] PRN Reason: Protocol Last Admin: 06/25/18 08:00 Dose: Not Given Dextrose (Dextrose 5% In Water 1000 Ml) 1,000 mls @ 0 mls/hr IV .Q0M PRN; Protocol; Per Protocol PRN Reason: Hypoglycemia Protocol Aztreonam 1 gm/ Sodium (Chloride) 100 mls @ 200 mls/hr IVPB Q8H [facility] PRN Reason: Protocol Last Admin: 06/25/18 13:45 Dose: 200 mls/hr Insulin Aspart (Novolog) 0 unit SC ACHS [facility] PRN Reason: Protocol Last Admin: 06/25/18 11:30 Dose: Not Given Losartan Potassium (Cozaar) 100 mg PO DAILY [facility] Last Admin: 06/25/18 13:47 Dose: 100 mg Metformin HCl (Glucophage) 500 mg PO BID [facility] Last Admin: 06/25/18 10:00 Dose: Not Given Methylprednisolone (Solu-Medrol) 40 mg IVP Q8 [facility] Last Admin: 06/25/18 13:45 Dose: 40 mg Pantoprazole Sodium (Protonix Ec Tab) 40 mg PO DAILY [facility] Last Admin: 06/25/18 13:48 Dose: 40 mg - Labs Labs: 06/25/18 07:19 06/25/18 07:19 PT 13.6 SECONDS (9.7-12.2) H 06/21/18 22:48 INR 1.2 06/21/18 22:48 APTT 33 SECONDS (21-34) 06/21/18 22:48 - Constitutional Appears: Well - Head Exam Head Exam: ATRAUMATIC, NORMAL INSPECTION, NORMOCEPHALIC - Eye Exam Eye Exam: EOMI, Normal appearance, PERRL Pupil Exam: NORMAL ACCOMODATION, PERRL - ENT Exam ENT Exam: Mucous Membranes Moist, Normal Exam - Neck Exam Neck Exam: Full ROM, Normal Inspection. absent: Lymphadenopathy - Respiratory Exam Respiratory Exam: Decreased Breath Sounds - Cardiovascular Exam Cardiovascular Exam: REGULAR RHYTHM, +S1, +S2 - GI/Abdominal Exam GI & Abdominal Exam: Soft, Diminished Bowel Sounds - Rectal Exam Rectal Exam: Deferred
[2018-06-25] MEDS ORDERED: Heparin25000 units/250ml 1/2NS 25,000 UNITS/250 ML BAG IV PRN (17:00)
--- NOTE | 2018-06-25 21:15 | CP.PCM.PN ---
Subjective - Date & Time of Evaluation Date of Evaluation: 06/25/18 Time of Evaluation: 18:20 - Subjective Subjective: patient seen and examined Shortness of breath improving Denies any chest pain Afebrile Seen by cardiology for bilateral pleural effusions and cardiomegaly Objective - Vital Signs/Intake and Output Vital Signs (last 24 hours): Temp Pulse Resp BP Pulse Ox 97.7 F 98 H 18 162/97 H 99 06/25/18 16:00 06/25/18 19:10 06/25/18 16:00 06/25/18 16:00 06/25/18 16:00 Intake and Output: 06/25/18 06/26/18 18:59 06:59 Intake Total 580 Balance 580 - Medications Medications: Current Medications Albuterol/Ipratropium (Duoneb 3 Mg/0.5 Mg (3 Ml) Ud) 3 ml INH RQ6 [facility] Last Admin: 06/25/18 19:57 Dose: 3 ml Apixaban (Eliquis) 5 mg PO DAILY [facility] Last Admin: 06/25/18 13:47 Dose: 5 mg Budesonide (Pulmicort Respules) 0.5 mg INH RQ12 [facility] Last Admin: 06/25/18 19:57 Dose: 0.5 mg Colchicine (Colocrys) 0.6 mg PO DAILY [facility] Last Admin: 06/25/18 13:46 Dose: 0.6 mg Dextrose (Dextrose 50% Inj) 0 ml IV STAT PRN; Protocol PRN Reason: Hypoglycemia Protocol Dextrose (Glutose 15) 0 gm PO ONCE PRN; Protocol PRN Reason: Hypoglycemia Protocol Diltiazem HCl (Cardizem Cd) 240 mg PO DAILY [facility] Last Admin: 06/25/18 13:47 Dose: 240 mg Gabapentin (Neurontin) 300 mg PO BID [facility] Last Admin: 06/25/18 18:19 Dose: 300 mg Glimepiride (Amaryl) 2 mg PO DAILY [facility] Last Admin: 06/25/18 10:00 Dose: Not Given Glucagon (Glucagen Diagnostic Kit) 0 mg IM STAT PRN; Protocol PRN Reason: Hypoglycemia Protocol Vancomycin/Sodium Chloride (Vancomycin 1 Gm/Ns 200 Ml) 1 gm in 200 mls @ 133.333 mls/hr IVPB Q24H [facility] PRN Reason: Protocol Stop: 06/27/18 01:31 Last Admin: 06/25/18 00:33 Dose: 133.333 mls/hr Clindamycin Phosphate 600 mg/ (Sodium Chloride) 54 mls @ 100 mls/hr IVPB Q8H [facility] PRN Reason: Protocol Last Admin: 06/25/18 16:00 Dose: 100 mls/hr Dextrose (Dextrose 5% In Water 1000 Ml) 1,000 mls @ 0 mls/hr IV .Q0M PRN; Protocol; Per Protocol PRN Reason: Hypoglycemia Protocol Aztreonam 1 gm/ Sodium (Chloride) 100 mls @ 200 mls/hr IVPB Q8H [facility] PRN Reason: Protocol Last Admin: 06/25/18 20:05 Dose: 200 mls/hr Insulin Aspart (Novolog) 0 unit SC ACHS [facility] PRN Reason: Protocol Last Admin: 06/25/18 18:19 Dose: 1 unit Losartan Potassium (Cozaar) 100 mg PO DAILY [facility] Last Admin: 06/25/18 13:47 Dose: 100 mg Metformin HCl (Glucophage) 500 mg PO BID [facility] Last Admin: 06/25/18 18:19 Dose: 500 mg Methylprednisolone (Solu-Medrol) 40 mg IVP Q8 [facility] Last Admin: 06/25/18 13:45 Dose: 40 mg Pantoprazole Sodium (Protonix Ec Tab) 40 mg PO DAILY [facility] Last Admin: 06/25/18 13:48 Dose: 40 mg - Labs Labs: 06/25/18 07:19 06/25/18 07:19 PT 13.6 SECONDS (9.7-12.2) H 06/21/18 22:48 INR 1.2 06/21/18 22:48 APTT 29 SECONDS (21-34) 06/25/18 16:30 - Head Exam Head Exam: ATRAUMATIC, NORMOCEPHALIC - ENT Exam ENT Exam: Mucous Membranes Moist - Neck Exam Neck Exam: Normal Inspection - Respiratory Exam Respiratory Exam: Rhonchi - Cardiovascular Exam Cardiovascular Exam: REGULAR RHYTHM - GI/Abdominal Exam GI & Abdominal Exam: Soft, Normal Bowel Sounds Assessment and Plan (1) COPD exacerbation Assessment & Plan: nebulizer treatment IV steroids Follow-up chest x-ray for pleural effusion Echocardiogram Status: Acute (2) Pleural effusion Status: Acute
[2018-06-26] MEDS: Vancomycin 1 gm/NS 200 ml 1 GM/200 ML BAG IVPB SCH (01:22)
[2018-06-26] MEDS: Albuterol-Ipratrop 3 mg / 0.5 (3 ml) UD INH SCH ×4 (02:24→19:48)
[2018-06-26] MEDS: Aztreonam 1 GM in Sodium Chloride 0.9% 100 ML IVPB SCH ×3 (03:09→19:12)
--- NOTE | 2018-06-26 05:58 | CP.PCM.PN ---
Subjective - Date & Time of Evaluation Date of Evaluation: 06/26/18 Time of Evaluation: 06:47 - Subjective Subjective: Events reviewed Objective - Vital Signs/Intake and Output Vital Signs (last 24 hours): Temp Pulse Resp BP Pulse Ox 98.1 F 104 H 20 155/92 H 96 06/25/18 23:50 06/26/18 04:19 06/25/18 23:50 06/25/18 23:50 06/25/18 23:50 Intake and Output: 06/25/18 06/26/18 18:59 06:59 Intake Total 580 1000 Balance 580 1000 - Medications Medications: Current Medications Albuterol/Ipratropium (Duoneb 3 Mg/0.5 Mg (3 Ml) Ud) 3 ml INH RQ6 [facility] Last Admin: 06/26/18 02:24 Dose: 3 ml Apixaban (Eliquis) 5 mg PO DAILY [facility] Last Admin: 06/25/18 13:47 Dose: 5 mg Budesonide (Pulmicort Respules) 0.5 mg INH RQ12 [facility] Last Admin: 06/25/18 19:57 Dose: 0.5 mg Colchicine (Colocrys) 0.6 mg PO DAILY [facility] Last Admin: 06/25/18 13:46 Dose: 0.6 mg Dextrose (Dextrose 50% Inj) 0 ml IV STAT PRN; Protocol PRN Reason: Hypoglycemia Protocol Dextrose (Glutose 15) 0 gm PO ONCE PRN; Protocol PRN Reason: Hypoglycemia Protocol Diltiazem HCl (Cardizem Cd) 240 mg PO DAILY [facility] Last Admin: 06/25/18 13:47 Dose: 240 mg Gabapentin (Neurontin) 300 mg PO BID [facility] Last Admin: 06/25/18 18:19 Dose: 300 mg Glimepiride (Amaryl) 2 mg PO DAILY [facility] Last Admin: 06/25/18 10:00 Dose: Not Given Glucagon (Glucagen Diagnostic Kit) 0 mg IM STAT PRN; Protocol PRN Reason: Hypoglycemia Protocol Vancomycin/Sodium Chloride (Vancomycin 1 Gm/Ns 200 Ml) 1 gm in 200 mls @ 133.333 mls/hr IVPB Q24H [facility] PRN Reason: Protocol Stop: 06/27/18 01:31 Last Admin: 06/26/18 01:22 Dose: 133.333 mls/hr Clindamycin Phosphate 600 mg/ (Sodium Chloride) 54 mls @ 100 mls/hr IVPB Q8H [facility] PRN Reason: Protocol Last Admin: 06/25/18 23:44 Dose: 100 mls/hr Dextrose (Dextrose 5% In Water 1000 Ml) 1,000 mls @ 0 mls/hr IV .Q0M PRN; Protocol; Per Protocol PRN Reason: Hypoglycemia Protocol Aztreonam 1 gm/ Sodium (Chloride) 100 mls @ 200 mls/hr IVPB Q8H [facility] PRN Reason: Protocol Last Admin: 06/26/18 03:09 Dose: 200 mls/hr Insulin Aspart (Novolog) 0 unit SC ACHS [facility] PRN Reason: Protocol Last Admin: 06/25/18 21:32 Dose: Not Given Losartan Potassium (Cozaar) 100 mg PO DAILY [facility] Last Admin: 06/25/18 13:47 Dose: 100 mg Metformin HCl (Glucophage) 500 mg PO BID [facility] Last Admin: 06/25/18 18:19 Dose: 500 mg Methylprednisolone (Solu-Medrol) 40 mg IVP Q8 [facility] Last Admin: 06/25/18 21:28 Dose: 40 mg Pantoprazole Sodium (Protonix Ec Tab) 40 mg PO DAILY [facility] Last Admin: 06/25/18 13:48 Dose: 40 mg - Labs Labs: 06/25/18 07:19 06/25/18 07:19 PT 13.6 SECONDS (9.7-12.2) H 06/21/18 22:48 INR 1.2 06/21/18 22:48 APTT 29 SECONDS (21-34) 06/25/18 16:30 - Constitutional Appears: Well, Non-toxic - Respiratory Exam Respiratory Exam: Clear to Ausculation Bilateral, NORMAL BREATHING PATTERN - Cardiovascular Exam Cardiovascular Exam: Irregular Rhythm, +S1, +S2. absent: JVD - GI/Abdominal Exam GI & Abdominal Exam: Normal Bowel Sounds. absent: Organomegaly Assessment and Plan - Assessment and Plan (Free Text) Assessment: 63 year old man with acute on chronic diastolic CHF obtain 2D echo, now improved with diuresis Pleural effusions acute likely transudative, now improved. HTN is chronic and needs better control incease Cardizem 300 continue losartan 100 Paroxysmal atrial fibrillation NOAC for CVA prophylaxis after 2D echo will need to consider rhythm control v continued rate control
[2018-06-26] MEDS: MethylPREDNISolone 40 mg Vial IVP SCH ×3 (05:59→22:04)
[2018-06-26] MEDS: (Novolog) Insulin Aspart, Recombinant 100 u/ml 10 ml vial SC SCH ×3 (07:30→22:05)
[2018-06-26] MEDS: Budesonide 0.5 mg/2 ml Inhal Susp UD INH SCH ×2 (08:26→19:48)
[2018-06-26 08:36] LABS: BASO % 0.1 % (0.0-2.0); HEMOGLOBIN 12.3 g/dL (12.0-18.0); LYMPH # 0.7 K/uL (1.0-4.3); LYMPH % 5.2 % (20.0-40.0); MEAN CELL VOLUME 91.7 fL (80.0-94.0); MEAN CORPUSCULAR HEMOGLOBIN 30.3 pg (27.0-31.0); MEAN CORPUSCULAR HGB CONC 33.1 g/dL (33.0-37.0); MEAN PLATELET VOLUME 10.4 fL (7.2-11.7); MONO # 0.5 K/uL (0.0-0.8); MONO % 3.2 % (0.0-10.0); NEUT # 12.9 K/uL (1.8-7.0); NEUT % 91.5 % (50.0-75.0); PLATELET COUNT 182 K/uL (130-400); RBC 4.06 Mil/uL (4.40-5.90); RED CELL DISTRIBUTION WIDTH 16.1 % (11.5-14.5); WHITE BLOOD COUNT 14.1 K/uL (4.8-10.8)
[2018-06-26 08:58] LABS: ALB/GLOB RATIO 1.3 (1.0-2.1); ALBUMIN 3.6 g/dL (3.5-5.0); ALT/SGPT 39 U/L (21-72); AST/SGOT 23 U/L (17-59); BLOOD UREA NITROGEN 30 mg/dL (9-20); CALCIUM 11.2 mg/dl (8.6-10.4); GFR AFRICAN-AMERICAN > 60; GFR NON-AFRICAN AMERICAN > 60
[2018-06-26 09:47] LABS: BANDS 2 % (0-2); LYMPHOCYTE 8 % (20-40); MONOCYTE 4 % (0-10); NEUTROPHIL 86 % (50-75); TOTAL CELLS COUNTED 100
[2018-06-26 09:48] LABS: ANISOCYTOSIS SLIGHT; HYPOCHROMIC SLIGHT; LARGE PLATELETS PRESENT; PLATELET ESTIMATE NORMAL (NORMAL); POLYCHROMIC SLIGHT; TOXIC GRANULATION PRESENT
[2018-06-26] MEDS: Pantoprazole 40 mg EC Tab PO SCH (10:04)
[2018-06-26] MEDS: diltiaZEM 300 mg/24 Hours CD Cap PO SCH (10:05)
--- NOTE | 2018-06-26 12:59 | CP.PCM.PN ---
Subjective - Date & Time of Evaluation Date of Evaluation: 06/26/18 Time of Evaluation: 08:45 - Subjective Subjective: clinically same Objective - Vital Signs/Intake and Output Vital Signs (last 24 hours): Temp Pulse Resp BP Pulse Ox 98.0 F 85 18 160/89 H 100 06/26/18 07:26 06/26/18 07:26 06/26/18 07:26 06/26/18 07:26 06/26/18 07:26 Intake and Output: 06/26/18 06/26/18 06:59 18:59 Intake Total 1000 Balance 1000 - Medications Medications: Current Medications Albuterol/Ipratropium (Duoneb 3 Mg/0.5 Mg (3 Ml) Ud) 3 ml INH RQ6 [facility] Last Admin: 06/26/18 08:26 Dose: 3 ml Apixaban (Eliquis) 5 mg PO DAILY [facility] Last Admin: 06/26/18 10:04 Dose: 5 mg Budesonide (Pulmicort Respules) 0.5 mg INH RQ12 [facility] Last Admin: 06/26/18 08:26 Dose: 0.5 mg Colchicine (Colocrys) 0.6 mg PO DAILY [facility] Last Admin: 06/26/18 10:04 Dose: 0.6 mg Dextrose (Dextrose 50% Inj) 0 ml IV STAT PRN; Protocol PRN Reason: Hypoglycemia Protocol Dextrose (Glutose 15) 0 gm PO ONCE PRN; Protocol PRN Reason: Hypoglycemia Protocol Diltiazem HCl (Cardizem Cd) 300 mg PO DAILY [facility] Last Admin: 06/26/18 10:05 Dose: 300 mg Gabapentin (Neurontin) 300 mg PO BID [facility] Last Admin: 06/26/18 10:04 Dose: 300 mg Glimepiride (Amaryl) 2 mg PO DAILY [facility] Last Admin: 06/26/18 10:04 Dose: 2 mg Glucagon (Glucagen Diagnostic Kit) 0 mg IM STAT PRN; Protocol PRN Reason: Hypoglycemia Protocol Vancomycin/Sodium Chloride (Vancomycin 1 Gm/Ns 200 Ml) 1 gm in 200 mls @ 133.333 mls/hr IVPB Q24H [facility] PRN Reason: Protocol Stop: 06/27/18 01:31 Last Admin: 06/26/18 01:22 Dose: 133.333 mls/hr Clindamycin Phosphate 600 mg/ (Sodium Chloride) 54 mls @ 100 mls/hr IVPB Q8H [facility] PRN Reason: Protocol Last Admin: 06/26/18 08:47 Dose: 100 mls/hr Aztreonam 1 gm/ Sodium (Chloride) 100 mls @ 200 mls/hr IVPB Q8H [facility] PRN Reason: Protocol Last Admin: 06/26/18 12:25 Dose: 200 mls/hr Insulin Aspart (Novolog) 0 unit SC ACHS [facility] PRN Reason: Protocol Last Admin: 06/26/18 07:30 Dose: Not Given Losartan Potassium (Cozaar) 100 mg PO DAILY [facility] Last Admin: 06/26/18 10:04 Dose: 100 mg Metformin HCl (Glucophage) 500 mg PO BID [facility] Last Admin: 06/26/18 10:05 Dose: 500 mg Methylprednisolone (Solu-Medrol) 40 mg IVP Q8 [facility] Last Admin: 06/26/18 05:59 Dose: 40 mg Pantoprazole Sodium (Protonix Ec Tab) 40 mg PO DAILY [facility] Last Admin: 06/26/18 10:04 Dose: 40 mg - Labs Labs: 06/26/18 08:24 06/26/18 08:24 PT 13.6 SECONDS (9.7-12.2) H 06/21/18 22:48 INR 1.2 06/21/18 22:48 APTT 29 SECONDS (21-34) 06/25/18 16:30 - Constitutional Appears: Well - Head Exam Head Exam: ATRAUMATIC, NORMAL INSPECTION, NORMOCEPHALIC - Eye Exam Eye Exam: EOMI, Normal appearance, PERRL Pupil Exam: NORMAL ACCOMODATION, PERRL - ENT Exam ENT Exam: Mucous Membranes Moist, Normal Exam - Neck Exam Neck Exam: Full ROM, Normal Inspection. absent: Lymphadenopathy - Respiratory Exam Respiratory Exam: Decreased Breath Sounds - Cardiovascular Exam Cardiovascular Exam: REGULAR RHYTHM, +S1, +S2 - GI/Abdominal Exam GI & Abdominal Exam: Soft, Diminished Bowel Sounds - Rectal Exam Rectal Exam: Deferred
--- NOTE | 2018-06-26 13:54 | CP.PCM.PN ---
Subjective - Date & Time of Evaluation Date of Evaluation: 06/26/18 Time of Evaluation: 09:00 - Subjective Subjective: no new positive cultures IV rx in progress Objective - Vital Signs/Intake and Output Vital Signs (last 24 hours): Temp Pulse Resp BP Pulse Ox 98.0 F 85 18 160/89 H 100 06/26/18 07:26 06/26/18 07:26 06/26/18 07:26 06/26/18 07:26 06/26/18 07:26 Intake and Output: 06/26/18 06/26/18 06:59 18:59 Intake Total 1000 Balance 1000 - Medications Medications: Current Medications Albuterol/Ipratropium (Duoneb 3 Mg/0.5 Mg (3 Ml) Ud) 3 ml INH RQ6 [facility] Last Admin: 06/26/18 13:30 Dose: 3 ml Apixaban (Eliquis) 5 mg PO DAILY [facility] Last Admin: 06/26/18 10:04 Dose: 5 mg Budesonide (Pulmicort Respules) 0.5 mg INH RQ12 [facility] Last Admin: 06/26/18 08:26 Dose: 0.5 mg Colchicine (Colocrys) 0.6 mg PO DAILY [facility] Last Admin: 06/26/18 10:04 Dose: 0.6 mg Dextrose (Dextrose 50% Inj) 0 ml IV STAT PRN; Protocol PRN Reason: Hypoglycemia Protocol Dextrose (Glutose 15) 0 gm PO ONCE PRN; Protocol PRN Reason: Hypoglycemia Protocol Diltiazem HCl (Cardizem Cd) 300 mg PO DAILY [facility] Last Admin: 06/26/18 10:05 Dose: 300 mg Gabapentin (Neurontin) 300 mg PO BID [facility] Last Admin: 06/26/18 10:04 Dose: 300 mg Glimepiride (Amaryl) 2 mg PO DAILY [facility] Last Admin: 06/26/18 10:04 Dose: 2 mg Glucagon (Glucagen Diagnostic Kit) 0 mg IM STAT PRN; Protocol PRN Reason: Hypoglycemia Protocol Vancomycin/Sodium Chloride (Vancomycin 1 Gm/Ns 200 Ml) 1 gm in 200 mls @ 133.333 mls/hr IVPB Q24H [facility] PRN Reason: Protocol Stop: 06/27/18 01:31 Last Admin: 06/26/18 01:22 Dose: 133.333 mls/hr Clindamycin Phosphate 600 mg/ (Sodium Chloride) 54 mls @ 100 mls/hr IVPB Q8H [facility] PRN Reason: Protocol Last Admin: 06/26/18 08:47 Dose: 100 mls/hr Aztreonam 1 gm/ Sodium (Chloride) 100 mls @ 200 mls/hr IVPB Q8H [facility] PRN Reason: Protocol Last Admin: 06/26/18 12:25 Dose: 200 mls/hr Insulin Aspart (Novolog) 0 unit SC ACHS [facility] PRN Reason: Protocol Last Admin: 06/26/18 07:30 Dose: Not Given Losartan Potassium (Cozaar) 100 mg PO DAILY [facility] Last Admin: 06/26/18 10:04 Dose: 100 mg Metformin HCl (Glucophage) 500 mg PO BID [facility] Last Admin: 06/26/18 10:05 Dose: 500 mg Methylprednisolone (Solu-Medrol) 40 mg IVP Q8 [facility] Last Admin: 06/26/18 13:45 Dose: 40 mg Pantoprazole Sodium (Protonix Ec Tab) 40 mg PO DAILY [facility] Last Admin: 06/26/18 10:04 Dose: 40 mg - Labs Labs: 06/26/18 08:24 06/26/18 08:24 PT 13.6 SECONDS (9.7-12.2) H 06/21/18 22:48 INR 1.2 06/21/18 22:48 APTT 29 SECONDS (21-34) 06/25/18 16:30 - Constitutional Appears: Non-toxic, Chronically Ill - Head Exam Head Exam: NORMOCEPHALIC - Eye Exam Eye Exam: PERRL - ENT Exam ENT Exam: Normal External Ear Exam - Neck Exam Neck Exam: absent: Lymphadenopathy - Respiratory Exam Respiratory Exam: Decreased Breath Sounds - Cardiovascular Exam Cardiovascular Exam: REGULAR RHYTHM - GI/Abdominal Exam GI & Abdominal Exam: Distended, Soft - Rectal Exam Rectal Exam: Deferred - Exam Exam: NORMAL INSPECTION - Extremities Exam Extremities Exam: absent: Pedal Edema - Back Exam Back Exam: absent: CVA tenderness (L), CVA tenderness (R) Assessment and Plan (1) Diabetes Status: Acute (2) Chronic foot ulcer Status: Acute (3) Cellulitis of lower extremity Status: Acute (4) PVD (peripheral vascular disease) Status: Acute
[2018-06-27] MEDS: Vancomycin 1 gm/NS 200 ml 1 GM/200 ML BAG IVPB SCH (00:38)
[2018-06-27] MEDS: Albuterol-Ipratrop 3 mg / 0.5 (3 ml) UD INH SCH ×4 (01:31→19:25)
[2018-06-27] MEDS: Aztreonam 1 GM in Sodium Chloride 0.9% 100 ML IVPB SCH ×3 (05:16→20:50)
[2018-06-27] MEDS: MethylPREDNISolone 40 mg Vial IVP SCH ×3 (05:20→22:10)
[2018-06-27] MEDS: Budesonide 0.5 mg/2 ml Inhal Susp UD INH SCH ×2 (07:26→19:25)
[2018-06-27] MEDS: (Novolog) Insulin Aspart, Recombinant 100 u/ml 10 ml vial SC SCH ×5 (08:14→22:08)
[2018-06-27] MEDS: Pantoprazole 40 mg EC Tab PO SCH (10:11)
[2018-06-27] MEDS: diltiaZEM 300 mg/24 Hours CD Cap PO SCH (10:11)
--- NOTE | 2018-06-27 18:24 | CP.PCM.PN ---
Subjective - Date & Time of Evaluation Date of Evaluation: 06/27/18 Time of Evaluation: 10:45 - Subjective Subjective: the patient seen and examined Breathing much better Afebrile No chest pain Stable from pulmonary standpoint Nebulizer treatment and p.o. prednisone Objective - Vital Signs/Intake and Output Vital Signs (last 24 hours): Temp Pulse Resp BP Pulse Ox 98.1 F 105 H 20 145/91 H 98 06/27/18 15:00 06/27/18 15:00 06/27/18 15:00 06/27/18 15:00 06/27/18 15:00 Intake and Output: 06/27/18 06/27/18 06:59 18:59 Intake Total 1000 Output Total 350 Balance 650 - Medications Medications: Current Medications Albuterol/Ipratropium (Duoneb 3 Mg/0.5 Mg (3 Ml) Ud) 3 ml INH RQ6 [facility] Last Admin: 06/27/18 13:33 Dose: 3 ml Apixaban (Eliquis) 5 mg PO DAILY [facility] Last Admin: 06/27/18 10:11 Dose: 5 mg Budesonide (Pulmicort Respules) 0.5 mg INH RQ12 [facility] Last Admin: 06/27/18 07:26 Dose: 0.5 mg Colchicine (Colocrys) 0.6 mg PO DAILY [facility] Last Admin: 06/27/18 10:11 Dose: 0.6 mg Dextrose (Dextrose 50% Inj) 0 ml IV STAT PRN; Protocol PRN Reason: Hypoglycemia Protocol Dextrose (Glutose 15) 0 gm PO ONCE PRN; Protocol PRN Reason: Hypoglycemia Protocol Diltiazem HCl (Cardizem Cd) 300 mg PO DAILY [facility] Last Admin: 06/27/18 10:11 Dose: 300 mg Gabapentin (Neurontin) 300 mg PO BID [facility] Last Admin: 06/27/18 10:11 Dose: 300 mg Glimepiride (Amaryl) 2 mg PO DAILY [facility] Last Admin: 06/27/18 10:11 Dose: 2 mg Glucagon (Glucagen Diagnostic Kit) 0 mg IM STAT PRN; Protocol PRN Reason: Hypoglycemia Protocol Clindamycin Phosphate 600 mg/ (Sodium Chloride) 54 mls @ 100 mls/hr IVPB Q8H [facility] PRN Reason: Protocol Last Admin: 06/27/18 08:15 Dose: 100 mls/hr Aztreonam 1 gm/ Sodium (Chloride) 100 mls @ 200 mls/hr IVPB Q8H [facility] PRN Reason: Protocol Last Admin: 06/27/18 12:16 Dose: 200 mls/hr Vancomycin/Sodium Chloride (Vancomycin 1 Gm/Ns 200 Ml) 1 gm in 200 mls @ 133 mls/hr IVPB DAILY@0130 [facility] PRN Reason: Protocol Stop: 07/03/18 01:31 Insulin Aspart (Novolog) 0 unit SC ACHS [facility] PRN Reason: Protocol Last Admin: 06/27/18 12:13 Dose: Not Given Losartan Potassium (Cozaar) 100 mg PO DAILY [facility] Last Admin: 06/27/18 10:11 Dose: 100 mg Metformin HCl (Glucophage) 500 mg PO BID [facility] Last Admin: 06/27/18 10:11 Dose: 500 mg Methylprednisolone (Solu-Medrol) 40 mg IVP Q8 [facility] Last Admin: 06/27/18 13:42 Dose: Not Given Pantoprazole Sodium (Protonix Ec Tab) 40 mg PO DAILY [facility] Last Admin: 06/27/18 10:11 Dose: 40 mg - Labs Labs: 06/26/18 08:24 06/26/18 08:24 PT 13.6 SECONDS (9.7-12.2) H 06/21/18 22:48 INR 1.2 06/21/18 22:48 APTT 29 SECONDS (21-34) 06/25/18 16:30 Assessment and Plan (1) COPD exacerbation Status: Acute (2) Pleural effusion Status: Acute
--- NOTE | 2018-06-27 18:33 | CP.PCM.PN ---
Subjective - Date & Time of Evaluation Date of Evaluation: 06/27/18 Time of Evaluation: 09:00 - Subjective Subjective: clinically same Objective - Vital Signs/Intake and Output Vital Signs (last 24 hours): Temp Pulse Resp BP Pulse Ox 98.1 F 105 H 20 145/91 H 98 06/27/18 15:00 06/27/18 15:00 06/27/18 15:00 06/27/18 15:00 06/27/18 15:00 Intake and Output: 06/27/18 06/27/18 06:59 18:59 Intake Total 1000 Output Total 350 Balance 650 - Medications Medications: Current Medications Albuterol/Ipratropium (Duoneb 3 Mg/0.5 Mg (3 Ml) Ud) 3 ml INH RQ6 [facility] Last Admin: 06/27/18 13:33 Dose: 3 ml Apixaban (Eliquis) 5 mg PO DAILY [facility] Last Admin: 06/27/18 10:11 Dose: 5 mg Budesonide (Pulmicort Respules) 0.5 mg INH RQ12 [facility] Last Admin: 06/27/18 07:26 Dose: 0.5 mg Colchicine (Colocrys) 0.6 mg PO DAILY [facility] Last Admin: 06/27/18 10:11 Dose: 0.6 mg Dextrose (Dextrose 50% Inj) 0 ml IV STAT PRN; Protocol PRN Reason: Hypoglycemia Protocol Dextrose (Glutose 15) 0 gm PO ONCE PRN; Protocol PRN Reason: Hypoglycemia Protocol Diltiazem HCl (Cardizem Cd) 300 mg PO DAILY [facility] Last Admin: 06/27/18 10:11 Dose: 300 mg Gabapentin (Neurontin) 300 mg PO BID [facility] Last Admin: 06/27/18 10:11 Dose: 300 mg Glimepiride (Amaryl) 2 mg PO DAILY [facility] Last Admin: 06/27/18 10:11 Dose: 2 mg Glucagon (Glucagen Diagnostic Kit) 0 mg IM STAT PRN; Protocol PRN Reason: Hypoglycemia Protocol Clindamycin Phosphate 600 mg/ (Sodium Chloride) 54 mls @ 100 mls/hr IVPB Q8H [facility] PRN Reason: Protocol Last Admin: 06/27/18 08:15 Dose: 100 mls/hr Aztreonam 1 gm/ Sodium (Chloride) 100 mls @ 200 mls/hr IVPB Q8H [facility] PRN Reason: Protocol Last Admin: 06/27/18 12:16 Dose: 200 mls/hr Vancomycin/Sodium Chloride (Vancomycin 1 Gm/Ns 200 Ml) 1 gm in 200 mls @ 133 mls/hr IVPB DAILY@0130 [facility] PRN Reason: Protocol Stop: 07/03/18 01:31 Insulin Aspart (Novolog) 0 unit SC ACHS [facility] PRN Reason: Protocol Last Admin: 06/27/18 12:13 Dose: Not Given Losartan Potassium (Cozaar) 100 mg PO DAILY [facility] Last Admin: 06/27/18 10:11 Dose: 100 mg Metformin HCl (Glucophage) 500 mg PO BID [facility] Last Admin: 06/27/18 18:31 Dose: 500 mg Methylprednisolone (Solu-Medrol) 40 mg IVP Q8 [facility] Last Admin: 06/27/18 13:42 Dose: Not Given Pantoprazole Sodium (Protonix Ec Tab) 40 mg PO DAILY [facility] Last Admin: 06/27/18 10:11 Dose: 40 mg - Labs Labs: 06/26/18 08:24 06/26/18 08:24 PT 13.6 SECONDS (9.7-12.2) H 06/21/18 22:48 INR 1.2 06/21/18 22:48 APTT 29 SECONDS (21-34) 06/25/18 16:30 - Constitutional Appears: Well - Head Exam Head Exam: ATRAUMATIC, NORMAL INSPECTION, NORMOCEPHALIC - Eye Exam Eye Exam: EOMI, Normal appearance, PERRL Pupil Exam: NORMAL ACCOMODATION, PERRL - ENT Exam ENT Exam: Mucous Membranes Moist, Normal Exam - Neck Exam Neck Exam: Full ROM, Normal Inspection. absent: Lymphadenopathy - Respiratory Exam Respiratory Exam: Decreased Breath Sounds - Cardiovascular Exam Cardiovascular Exam: REGULAR RHYTHM, +S1, +S2 - GI/Abdominal Exam GI & Abdominal Exam: Soft, Diminished Bowel Sounds - Rectal Exam Rectal Exam: Deferred
--- NOTE | 2018-06-27 19:43 | CP.PCM.PN ---
Subjective - Date & Time of Evaluation Date of Evaluation: 06/27/18 Time of Evaluation: 19:40 - Subjective Subjective: No CP No SOB edema in legs improved no fevers or chills Objective - Vital Signs/Intake and Output Vital Signs (last 24 hours): Temp Pulse Resp BP Pulse Ox 98.1 F 105 H 20 145/91 H 98 06/27/18 15:00 06/27/18 15:00 06/27/18 15:00 06/27/18 15:00 06/27/18 15:00 - Medications Medications: Current Medications Albuterol/Ipratropium (Duoneb 3 Mg/0.5 Mg (3 Ml) Ud) 3 ml INH RQ6 [facility] Last Admin: 06/27/18 19:25 Dose: 3 ml Apixaban (Eliquis) 5 mg PO DAILY [facility] Last Admin: 06/27/18 10:11 Dose: 5 mg Budesonide (Pulmicort Respules) 0.5 mg INH RQ12 [facility] Last Admin: 06/27/18 19:25 Dose: 0.5 mg Colchicine (Colocrys) 0.6 mg PO DAILY [facility] Last Admin: 06/27/18 10:11 Dose: 0.6 mg Dextrose (Dextrose 50% Inj) 0 ml IV STAT PRN; Protocol PRN Reason: Hypoglycemia Protocol Dextrose (Glutose 15) 0 gm PO ONCE PRN; Protocol PRN Reason: Hypoglycemia Protocol Diltiazem HCl (Cardizem Cd) 300 mg PO DAILY [facility] Last Admin: 06/27/18 10:11 Dose: 300 mg Gabapentin (Neurontin) 300 mg PO BID [facility] Last Admin: 06/27/18 18:32 Dose: 300 mg Glimepiride (Amaryl) 2 mg PO DAILY [facility] Last Admin: 06/27/18 10:11 Dose: 2 mg Glucagon (Glucagen Diagnostic Kit) 0 mg IM STAT PRN; Protocol PRN Reason: Hypoglycemia Protocol Clindamycin Phosphate 600 mg/ (Sodium Chloride) 54 mls @ 100 mls/hr IVPB Q8H [facility] PRN Reason: Protocol Last Admin: 06/27/18 16:50 Dose: 100 mls/hr Aztreonam 1 gm/ Sodium (Chloride) 100 mls @ 200 mls/hr IVPB Q8H [facility] PRN Reason: Protocol Last Admin: 06/27/18 12:16 Dose: 200 mls/hr Vancomycin/Sodium Chloride (Vancomycin 1 Gm/Ns 200 Ml) 1 gm in 200 mls @ 133 mls/hr IVPB DAILY@0130 [facility] PRN Reason: Protocol Stop: 07/03/18 01:31 Insulin Aspart (Novolog) 0 unit SC ACHS [facility] PRN Reason: Protocol Last Admin: 06/27/18 17:10 Dose: Not Given Losartan Potassium (Cozaar) 100 mg PO DAILY [facility] Last Admin: 06/27/18 10:11 Dose: 100 mg Metformin HCl (Glucophage) 500 mg PO BID [facility] Last Admin: 06/27/18 18:31 Dose: 500 mg Methylprednisolone (Solu-Medrol) 40 mg IVP Q8 [facility] Last Admin: 06/27/18 13:42 Dose: Not Given Pantoprazole Sodium (Protonix Ec Tab) 40 mg PO DAILY [facility] Last Admin: 06/27/18 10:11 Dose: 40 mg - Labs Labs: 06/26/18 08:24 06/26/18 08:24 PT 13.6 SECONDS (9.7-12.2) H 06/21/18 22:48 INR 1.2 06/21/18 22:48 APTT 29 SECONDS (21-34) 06/25/18 16:30 - Constitutional Appears: No Acute Distress - Eye Exam Eye Exam: EOMI, Normal appearance, PERRL - ENT Exam ENT Exam: Mucous Membranes Moist, Normal Oropharynx - Respiratory Exam Respiratory Exam: Clear to Ausculation Bilateral. absent: Rhonchi, Wheezes - Cardiovascular Exam Cardiovascular Exam: Irregular Rhythm, +S1, +S2. absent: Murmur - GI/Abdominal Exam GI & Abdominal Exam: Soft, Normal Bowel Sounds. absent: Tenderness - Extremities Exam Extremities Exam: Normal Inspection. absent: Calf Tenderness, Pedal Edema - Neurological Exam Neurological Exam: Alert, Awake, Oriented x3 - Skin Skin Exam: Normal Color, Warm Assessment and Plan - Assessment and Plan (Free Text) Assessment: 63 year old man with acute on chronic diastolic CHF now improved with diuresis Pleural effusions acute likely transudative, now improved. HTN is chronic and needs better control incease Cardizem 300 continue losartan 100 Paroxysmal atrial fibrillation NOAC for CVA prophylaxis Echo done 06/27/18 directly visualized by me: => Normal LV and RV function, restricitive diastolic filling, mod LAE, mod TR, mild-mod MR, moderate in PASP Plan: cont IV abx for LE cellulitis cont to titrate meds for better rate control: renal function is normal Digoxin 0.125 daily is a reasonable option if BETA-blockers will complicate ASTHMA/COPD. lasix 20mg daily to help maintain euvolemia. consideration of outpatient VOLODYMYR/cardioversion can be done if multiple drug regimine still causes NYHA 2 or > sx's.
--- NOTE | 2018-06-27 20:34 | CARD ---
APPROVED REPORT Date of service: 06/27/2018 EXAM: Two-dimensional and M-mode echocardiogram with Doppler and color Doppler. Other Information Quality : GoodRhythm : INDICATION Dyspnea RISK FACTORS Hypertension Hyperlipidemia Diabetes 2D DIMENSIONS IVSd1.0 (0.7-1.1cm)LVDd3.8 (3.9-5.9cm) PWd1.2 (0.7-1.1cm)LVDs2.6 (2.5-4.0cm) FS (%) 31.5 %LVEF (%)60.1 (>50%) LVEF (Montaño's)55 % M-Mode DIMENSIONS RVDd1.53 (2.1-3.2cm)Left Atrium (MM)4.76 (2.5-4.0cm) IVSd1.13 (0.7-1.1cm)Aortic Root3.82 (2.2-3.7cm) LVDd4.19 (4.0-5.6cm)Aortic Cusp Exc.2.07 (1.5-2.0cm) PWd1.18 (0.7-1.1cm)FS (%) 33 % LVDs2.82 (2.0-3.8cm)LVEF (%)62 (>50%) Mitral Valve MV E Eyplmhyx037.3cm/sMV A Jsfzjtns68.8cm/sE/A ratio3.0 PISA0.71 cm TDI E/Lateral E'0.0E/Medial E'0.0 Tricuspid Valve TR Peak Earmmlac210ro/sTR Peak [id number] LEFT VENTRICLE The left ventricle is normal size. There is borderline concentric left ventricular hypertrophy. Left ventricle systolic function is normal. The Ejection Fraction is 60-65%. There is normal LV segmental wall motion. Transmitral Doppler flow pattern is Grade II-pseudonormal filling dynamics. There is no ventricular septal defect visualized. RIGHT VENTRICLE The right ventricle is normal size. The right ventricular systolic function is normal. ATRIA The left atrium is mildly dilated. The right atrium is moderately dilated. AORTIC VALVE The aortic valve is mildly sclerotic. The aortic valve is tri-cuspid. There is trace aortic regurgitation. There is no aortic valvular stenosis. MITRAL VALVE The mitral valve is normal in structure. There is no evidence of mitral valve prolapse. Mitral regurgitation is mild to moderate. ERO 0.7 TRICUSPID VALVE The tricuspid valve is normal in structure. There is mild to moderate tricuspid regurgitation. Right ventricular systolic pressure is estimated at greater than 60 mmHg. There is moderate-severe pulmonary hypertension. PULMONIC VALVE The pulmonary valve is normal in structure. There is trace to mild pulmonic valvular regurgitation. GREAT VESSELS The aortic root is normal in size. The ascending aorta is normal in size. The IVC is dilated. PERICARDIAL EFFUSION There is no pericardial effusion. <Conclusion> There is borderline concentric left ventricular hypertrophy. Left ventricle systolic function is normal. The Ejection Fraction is 60-65%. Transmitral Doppler flow pattern is Grade II-pseudonormal filling dynamics. Mitral regurgitation is mild to moderate. ERO 0.7 There is moderate-severe pulmonary hypertension.
--- NOTE | 2018-06-27 20:36 | CP.PCM.PN ---
Subjective - Date & Time of Evaluation Date of Evaluation: 06/27/18 Time of Evaluation: 08:00 - Subjective Subjective: PGY2 Medicine Note for Dr. Agueda Conley Patient seen and examined at bedside. No acute events overnight. Patient reports that he is feeling great and is hopeful that he can go home soon. Patient has no acute complaints. Patient denies fever, chills, chest pain, abdominal pain, nausea, vomiting, constipation, or diarrhea. Objective - Vital Signs/Intake and Output Vital Signs (last 24 hours): Temp Pulse Resp BP Pulse Ox 98.1 F 99 H 20 145/91 H 98 06/27/18 15:00 06/27/18 19:33 06/27/18 15:00 06/27/18 15:00 06/27/18 15:00 - Medications Medications: Current Medications Albuterol/Ipratropium (Duoneb 3 Mg/0.5 Mg (3 Ml) Ud) 3 ml INH RQ6 [facility] Last Admin: 06/27/18 19:25 Dose: 3 ml Apixaban (Eliquis) 5 mg PO DAILY [facility] Last Admin: 06/27/18 10:11 Dose: 5 mg Budesonide (Pulmicort Respules) 0.5 mg INH RQ12 [facility] Last Admin: 06/27/18 19:25 Dose: 0.5 mg Colchicine (Colocrys) 0.6 mg PO DAILY [facility] Last Admin: 06/27/18 10:11 Dose: 0.6 mg Dextrose (Dextrose 50% Inj) 0 ml IV STAT PRN; Protocol PRN Reason: Hypoglycemia Protocol Dextrose (Glutose 15) 0 gm PO ONCE PRN; Protocol PRN Reason: Hypoglycemia Protocol Diltiazem HCl (Cardizem Cd) 300 mg PO DAILY [facility] Last Admin: 06/27/18 10:11 Dose: 300 mg Gabapentin (Neurontin) 300 mg PO BID [facility] Last Admin: 06/27/18 18:32 Dose: 300 mg Glimepiride (Amaryl) 2 mg PO DAILY [facility] Last Admin: 06/27/18 10:11 Dose: 2 mg Glucagon (Glucagen Diagnostic Kit) 0 mg IM STAT PRN; Protocol PRN Reason: Hypoglycemia Protocol Clindamycin Phosphate 600 mg/ (Sodium Chloride) 54 mls @ 100 mls/hr IVPB Q8H [facility] PRN Reason: Protocol Last Admin: 06/27/18 16:50 Dose: 100 mls/hr Aztreonam 1 gm/ Sodium (Chloride) 100 mls @ 200 mls/hr IVPB Q8H [facility] PRN Reason: Protocol Last Admin: 06/27/18 12:16 Dose: 200 mls/hr Vancomycin/Sodium Chloride (Vancomycin 1 Gm/Ns 200 Ml) 1 gm in 200 mls @ 133 mls/hr IVPB DAILY@0130 [facility] PRN Reason: Protocol Stop: 07/03/18 01:31 Insulin Aspart (Novolog) 0 unit SC ACHS [facility] PRN Reason: Protocol Last Admin: 06/27/18 17:10 Dose: Not Given Losartan Potassium (Cozaar) 100 mg PO DAILY [facility] Last Admin: 06/27/18 10:11 Dose: 100 mg Metformin HCl (Glucophage) 500 mg PO BID [facility] Last Admin: 06/27/18 18:31 Dose: 500 mg Methylprednisolone (Solu-Medrol) 40 mg IVP Q8 [facility] Last Admin: 06/27/18 13:42 Dose: Not Given Pantoprazole Sodium (Protonix Ec Tab) 40 mg PO DAILY [facility] Last Admin: 06/27/18 10:11 Dose: 40 mg - Labs Labs: 06/26/18 08:24 06/26/18 08:24 PT 13.6 SECONDS (9.7-12.2) H 06/21/18 22:48 INR 1.2 06/21/18 22:48 APTT 29 SECONDS (21-34) 06/25/18 16:30 - Constitutional Appears: Non-toxic, No Acute Distress - Head Exam Head Exam: ATRAUMATIC, NORMOCEPHALIC - Eye Exam Eye Exam: EOMI, Normal appearance - ENT Exam ENT Exam: Mucous Membranes Moist - Neck Exam Neck Exam: Full ROM. absent: Lymphadenopathy - Respiratory Exam Respiratory Exam: Clear to Ausculation Bilateral, NORMAL BREATHING PATTERN. absent: Accessory Muscle Use, Rales, Rhonchi, Wheezes, Respiratory Distress - Cardiovascular Exam Cardiovascular Exam: Irregular Rhythm, +S1, +S2 - GI/Abdominal Exam GI & Abdominal Exam: Soft. absent: Distended, Firm, Guarding, Rigid, Tenderness - Extremities Exam Extremities Exam: absent: Calf Tenderness, Pedal Edema - Back Exam Additional comments: left upper back wound covered with dressing - wound has granular tissue at base , dressing with strike through - Neurological Exam Neurological Exam: Alert, Awake, Oriented x3 - Psychiatric Exam Psychiatric exam: Normal Affect, Normal Mood - Skin Skin Exam: Dry, Warm Additional comments: Lower extremities erythematous - greatly improved per patient (1st day seeing patient) chronic changes Assessment and Plan - Assessment and Plan (Free Text) Plan: Back Wound -afebrile -elevated WBC on 06/25 and 06/26 - likely due to steroid use - will continue to monitor -ID, Dr. Morton consulted, help appreciated * Wants patient to have IV abx for at least 2 more days. Can hopefully d/c on oral abx afterwards.-MRSA and enterobacter cloacae on 06/14 -wound care * dressing changes per wound care -Blood cultures negative 06/22/18: negative x 5 days -Vanco 1 gm IVPB daily -Aztreonam 1gm IVPB daily -Clindamycin 600mg IVPB q8h LE Cellulitis -ID, Dr. Morton consulted, help appreciated * Vanco 1 gm daily * Vanco trough 12.2 on 06/27 - will continue * Aztreonam 1gm IVPB daily * Clindamycin 600mg IVPB q8h -Vascular consulted, Dr. Conteh - help appreciated * Venous duplex: no evidence of deep or superficial vein thrombosis, normal valve function * LE arterial ultrasound: no evidence of hemodynamically significant arterial insufficiency SOB (resolved) -2/2 COPD -Pulmonary, Dr. Mai consulted, help appreciated -CTA: no evidence of acute central pulmonary embolus. small to medium size right sided effusion and slightly smaller left sided effusion with bibasilar atelectasis. cardiomegaly. -ECHO 06/27/18: LVEF ~60-65%, borderline concentric LVH, mild-mod MR, mod-severe pulm HTN -Cardio consult, Dr. Ramos - help appreciated * cont to titrate meds for better rate control: renal function is normal Digoxin 0.125 daily is a reasonable option if BETA-blockers will complicate ASTHMA/COPD. * lasix 20mg daily to help maintain euvolemia. * consideration of outpatient VOLODYMYR/cardioversion can be done if multiple drug regimine still causes NYHA 2 or > sx's. -Solu-Medrol 40mg ivp q8h -Duonebs q6h -Pulmicort respules q12h DMII -Metformin 500mg po BID -ISS -Glimepiride 2mg po daily -accuchecks -hypoglycemia protocol Afib -Cardizem 240mg po daily -Eliquis 5mg po daily -Cardio consult, Dr. Ramos - help appreciated * cont to titrate meds for better rate control: renal function is normal Digoxin 0.125 daily is a reasonable option if BETA-blockers will complicate ASTHMA/COPD. * lasix 20mg daily to help maintain euvolemia. * consideration of outpatient VOLODYMYR/cardioversion can be done if multiple drug regimine still causes NYHA 2 or > sx's. HTN -Cozaar 100mg po daily Hx Gout -Colchicine .6mg po daily Prophylaxis on Eliquis Protonix 40mg po daily DISPO: hopeful discharge in 2 days pending ID approval. All medical management as per Dr. Jarvis Oliver Anika PGY2
[2018-06-28] MEDS ORDERED: Vancomycin 1 gm/NS 200 ml 1 GM/200 ML BAG IVPB SCH (01:30)
[2018-06-28] MEDS: Aztreonam 1 GM in Sodium Chloride 0.9% 100 ML IVPB SCH ×3 (04:24→19:00)
--- NOTE | 2018-06-28 06:18 | CP.PCM.PN ---
Subjective - Date & Time of Evaluation Date of Evaluation: 06/28/18 Time of Evaluation: 06:18 - Subjective Subjective: PGY2 Medicine Note for Dr. Agueda Conley Patient seen and examined this morning at bedside. No acute events overnight. Patient is resting comfortably in bed without complaints. He is feeling well and is hopeful to be discharged soon. His breathing is back to normal. He is tolerating his diet. Denies pain. Patient denies fever, chills, chest pain, shortness of breath, abdominal pain, nausea, vomiting, constipation, or diarrhea. Objective - Vital Signs/Intake and Output Vital Signs (last 24 hours): Temp Pulse Resp BP Pulse Ox 97.8 F 94 H 20 147/87 97 06/28/18 00:00 06/28/18 00:00 06/28/18 00:00 06/28/18 00:00 06/28/18 00:00 Intake and Output: 06/27/18 06/28/18 18:59 06:59 Intake Total 450 Output Total 550 Balance -100 - Medications Medications: Current Medications Apixaban (Eliquis) 5 mg PO DAILY [facility] Last Admin: 06/27/18 10:11 Dose: 5 mg Budesonide (Pulmicort Respules) 0.5 mg INH RQ12 [facility] Last Admin: 06/27/18 19:25 Dose: 0.5 mg Colchicine (Colocrys) 0.6 mg PO DAILY [facility] Last Admin: 06/27/18 10:11 Dose: 0.6 mg Dextrose (Dextrose 50% Inj) 0 ml IV STAT PRN; Protocol PRN Reason: Hypoglycemia Protocol Dextrose (Glutose 15) 0 gm PO ONCE PRN; Protocol PRN Reason: Hypoglycemia Protocol Diltiazem HCl (Cardizem Cd) 300 mg PO DAILY [facility] Last Admin: 06/27/18 10:11 Dose: 300 mg Gabapentin (Neurontin) 300 mg PO BID [facility] Last Admin: 06/27/18 18:32 Dose: 300 mg Glimepiride (Amaryl) 2 mg PO DAILY [facility] Last Admin: 06/27/18 10:11 Dose: 2 mg Glucagon (Glucagen Diagnostic Kit) 0 mg IM STAT PRN; Protocol PRN Reason: Hypoglycemia Protocol Clindamycin Phosphate 600 mg/ (Sodium Chloride) 54 mls @ 100 mls/hr IVPB Q8H [facility] PRN Reason: Protocol Last Admin: 06/28/18 00:10 Dose: 100 mls/hr Aztreonam 1 gm/ Sodium (Chloride) 100 mls @ 200 mls/hr IVPB Q8H [facility] PRN Reason: Protocol Last Admin: 06/28/18 04:24 Dose: 200 mls/hr Vancomycin/Sodium Chloride (Vancomycin 1 Gm/Ns 200 Ml) 1 gm in 200 mls @ 133 mls/hr IVPB DAILY@0130 [facility] PRN Reason: Protocol Stop: 07/03/18 01:31 Last Admin: 06/28/18 01:03 Dose: 133 mls/hr Insulin Aspart (Novolog) 0 unit SC ACHS [facility] PRN Reason: Protocol Last Admin: 06/27/18 22:08 Dose: Not Given Losartan Potassium (Cozaar) 100 mg PO DAILY [facility] Last Admin: 06/27/18 10:11 Dose: 100 mg Metformin HCl (Glucophage) 500 mg PO BID [facility] Last Admin: 06/27/18 18:31 Dose: 500 mg Methylprednisolone (Solu-Medrol) 40 mg IVP Q8 [facility] Last Admin: 06/27/18 22:10 Dose: 40 mg Pantoprazole Sodium (Protonix Ec Tab) 40 mg PO DAILY [facility] Last Admin: 06/27/18 10:11 Dose: 40 mg - Labs Labs: 06/26/18 08:24 06/26/18 08:24 PT 13.6 SECONDS (9.7-12.2) H 06/21/18 22:48 INR 1.2 06/21/18 22:48 APTT 29 SECONDS (21-34) 06/25/18 16:30 - Constitutional Appears: Non-toxic, No Acute Distress - Head Exam Head Exam: ATRAUMATIC, NORMOCEPHALIC - Eye Exam Eye Exam: Normal appearance - ENT Exam ENT Exam: Mucous Membranes Moist - Respiratory Exam Respiratory Exam: Clear to Ausculation Bilateral, NORMAL BREATHING PATTERN. absent: Accessory Muscle Use, Rales, Rhonchi, Wheezes, Respiratory Distress - Cardiovascular Exam Cardiovascular Exam: Irregular Rhythm, +S1, +S2 - GI/Abdominal Exam GI & Abdominal Exam: Soft. absent: Distended, Firm, Guarding, Rigid, Tenderness - Extremities Exam Extremities Exam: absent: Calf Tenderness, Pedal Edema Additional comments: Erythema resolved on left leg, greatly improving on right. chronic skin changes noted. - Back Exam Additional comments: left upper back wound covered with dressing - wound has granular tissue at base , dressing with strike through of crusted yellow fluid - Neurological Exam Neurological Exam: Alert, Awake, Oriented x3 Neuro motor strength exam: Left Upper Extremity: 5, Right Upper Extremity: 5, Left Lower Extremity: 5, Right Lower Extremity: 5 - Psychiatric Exam Psychiatric exam: Normal Affect, Normal Mood - Skin Skin Exam: Dry, Warm Additional comments: as per extremities and back exam Assessment and Plan - Assessment and Plan (Free Text) Plan: Back Wound -afebrile -elevated WBC - likely due to steroid use - will continue to monitor * left shift * no bands -ID, Dr. Morton consulted, help appreciated * Wants patient to have IV abx for at least 1 more days. Can hopefully d/c on oral abx afterwards. -MRSA and enterobacter cloacae on 06/14 -wound care * dressing changes per wound care -Blood cultures negative 06/22/18: negative x 5 days -Vanco 1 gm IVPB daily -Aztreonam 1gm IVPB daily -Clindamycin 600mg IVPB q8h LE Cellulitis (improving) -ID, Dr. Morton consulted, help appreciated * Vanco 1 gm daily * Vanco trough 12.2 on 06/27 - will continue * Aztreonam 1gm IVPB daily * Clindamycin 600mg IVPB q8h -Vascular consulted, Dr. Conteh - help appreciated * Venous duplex: no evidence of deep or superficial vein thrombosis, normal valve function * LE arterial ultrasound: no evidence of hemodynamically significant arterial insufficiency SOB (resolved) -2/2 COPD -Pulmonary, Dr. Mai consulted, help appreciated -CTA: no evidence of acute central pulmonary embolus. small to medium size right sided effusion and slightly smaller left sided effusion with bibasilar atelectasis. cardiomegaly. -ECHO 06/27/18: LVEF ~60-65%, borderline concentric LVH, mild-mod MR, mod-severe pulm HTN -Cardio consult, Dr. Ramos - help appreciated * cont to titrate meds for better rate control: renal function is normal Digoxin 0.125 daily is a reasonable option if BETA-blockers will complicate ASTHMA/COPD. * lasix 20mg daily to help maintain euvolemia. * consideration of outpatient VOLODYMYR/cardioversion can be done if multiple drug regimine still causes NYHA 2 or > sx's. -Solu-Medrol 40mg ivp q8h -Duonebs q6h -Pulmicort respules q12h DMII -Metformin 500mg po BID -ISS -Glimepiride 2mg po daily -accuchecks -hypoglycemia protocol Afib -Cardizem 240mg po daily -Eliquis 5mg po daily -Cardio consult, Dr. Ramso - help appreciated * cont to titrate meds for better rate control: renal function is normal Digoxin 0.125 daily is a reasonable option if BETA-blockers will complicate ASTHMA/COPD. * lasix 20mg daily to help maintain euvolemia. * consideration of outpatient VOLODYMYR/cardioversion can be done if multiple drug regimine still causes NYHA 2 or > sx's. HTN -Cozaar 100mg po daily Hx Gout -Colchicine .6mg po daily Prophylaxis on Eliquis Protonix 40mg po daily DISPO: hopeful discharge in 1 days pending ID approval. All medical management as per Dr. Jarvis Oliver Anika PGY2
[2018-06-28] MEDS: MethylPREDNISolone 40 mg Vial IVP SCH ×3 (06:32→21:28)
[2018-06-28] MEDS: (Novolog) Insulin Aspart, Recombinant 100 u/ml 10 ml vial SC SCH ×4 (07:15→21:27)
[2018-06-28 07:22] LABS: BASO % 0.2 % (0.0-2.0); HEMOGLOBIN 13.5 g/dL (12.0-18.0); LYMPH # 0.6 K/uL (1.0-4.3); LYMPH % 3.8 % (20.0-40.0); MEAN CORPUSCULAR HEMOGLOBIN 30.8 pg (27.0-31.0); MEAN CORPUSCULAR HGB CONC 33.5 g/dL (33.0-37.0); MEAN PLATELET VOLUME 10.3 fL (7.2-11.7); MONO # 0.5 K/uL (0.0-0.8); MONO % 3.1 % (0.0-10.0); NEUT # 15.2 K/uL (1.8-7.0); NEUT % 92.9 % (50.0-75.0); NRBC % 0.2 % (0.0-2.0); PLATELET COUNT 206 K/uL (130-400); RBC 4.39 Mil/uL (4.40-5.90); WHITE BLOOD COUNT 16.3 K/uL (4.8-10.8)
[2018-06-28] MEDS: Budesonide 0.5 mg/2 ml Inhal Susp UD INH SCH ×2 (07:37→19:11)
[2018-06-28 07:45] LABS: ALB/GLOB RATIO 1.5 (1.0-2.1); ALBUMIN 3.7 g/dL (3.5-5.0); ALT/SGPT 44 U/L (21-72); AST/SGOT 21 U/L (17-59); BLOOD UREA NITROGEN 31 mg/dL (9-20); CALCIUM 10.6 mg/dl (8.6-10.4); GFR AFRICAN-AMERICAN > 60; GFR NON-AFRICAN AMERICAN > 60
[2018-06-28 08:15] LABS: LYMPHOCYTE 3 % (20-40); MONOCYTE 2 % (0-10); NEUTROPHIL 95 % (50-75); PLATELET ESTIMATE NORMAL (NORMAL); TOTAL CELLS COUNTED 100
[2018-06-28] MEDS: diltiaZEM 300 mg/24 Hours CD Cap PO SCH (10:13)
[2018-06-28] MEDS: Pantoprazole 40 mg EC Tab PO SCH (10:14)
--- NOTE | 2018-06-28 10:47 | CP.PCM.PN ---
Subjective - Date & Time of Evaluation Date of Evaluation: 06/28/18 Time of Evaluation: 10:46 - Subjective Subjective: No new complaints no fever,chills, n/v/d No Cp or SOB edema improved Objective - Vital Signs/Intake and Output Vital Signs (last 24 hours): Temp Pulse Resp BP Pulse Ox 97.8 F 80 18 155/94 H 100 06/28/18 07:00 06/28/18 10:20 06/28/18 07:00 06/28/18 10:20 06/28/18 07:00 Intake and Output: 06/28/18 06/28/18 06:59 18:59 Intake Total 450 Output Total 550 Balance -100 - Medications Medications: Current Medications Apixaban (Eliquis) 5 mg PO DAILY [facility] Last Admin: 06/28/18 10:13 Dose: 5 mg Budesonide (Pulmicort Respules) 0.5 mg INH RQ12 [facility] Last Admin: 06/28/18 07:37 Dose: 0.5 mg Colchicine (Colocrys) 0.6 mg PO DAILY [facility] Last Admin: 06/28/18 10:13 Dose: 0.6 mg Dextrose (Dextrose 50% Inj) 0 ml IV STAT PRN; Protocol PRN Reason: Hypoglycemia Protocol Dextrose (Glutose 15) 0 gm PO ONCE PRN; Protocol PRN Reason: Hypoglycemia Protocol Diltiazem HCl (Cardizem Cd) 300 mg PO DAILY [facility] Last Admin: 06/28/18 10:13 Dose: 300 mg Gabapentin (Neurontin) 300 mg PO BID [facility] Last Admin: 06/28/18 10:13 Dose: 300 mg Glimepiride (Amaryl) 2 mg PO DAILY [facility] Last Admin: 06/28/18 10:13 Dose: 2 mg Glucagon (Glucagen Diagnostic Kit) 0 mg IM STAT PRN; Protocol PRN Reason: Hypoglycemia Protocol Clindamycin Phosphate 600 mg/ (Sodium Chloride) 54 mls @ 100 mls/hr IVPB Q8H [facility] PRN Reason: Protocol Last Admin: 06/28/18 08:14 Dose: 100 mls/hr Aztreonam 1 gm/ Sodium (Chloride) 100 mls @ 200 mls/hr IVPB Q8H [facility] PRN Reason: Protocol Last Admin: 06/28/18 04:24 Dose: 200 mls/hr Vancomycin/Sodium Chloride (Vancomycin 1 Gm/Ns 200 Ml) 1 gm in 200 mls @ 133 mls/hr IVPB DAILY@0130 [facility] PRN Reason: Protocol Stop: 07/03/18 01:31 Last Admin: 06/28/18 01:03 Dose: 133 mls/hr Insulin Aspart (Novolog) 0 unit SC ACHS [facility] PRN Reason: Protocol Last Admin: 06/28/18 07:15 Dose: Not Given Losartan Potassium (Cozaar) 100 mg PO DAILY [facility] Last Admin: 06/27/18 10:11 Dose: 100 mg Metformin HCl (Glucophage) 500 mg PO BID [facility] Last Admin: 06/28/18 10:13 Dose: 500 mg Methylprednisolone (Solu-Medrol) 40 mg IVP Q8 [facility] Last Admin: 06/28/18 06:32 Dose: 40 mg Pantoprazole Sodium (Protonix Ec Tab) 40 mg PO DAILY [facility] Last Admin: 06/28/18 10:14 Dose: 40 mg - Labs Labs: 06/28/18 07:03 06/28/18 07:03 PT 13.6 SECONDS (9.7-12.2) H 06/21/18 22:48 INR 1.2 06/21/18 22:48 APTT 29 SECONDS (21-34) 06/25/18 16:30 - Constitutional Appears: No Acute Distress - Head Exam Head Exam: ATRAUMATIC, NORMAL INSPECTION, NORMOCEPHALIC - Eye Exam Eye Exam: EOMI, Normal appearance, PERRL - ENT Exam ENT Exam: Mucous Membranes Moist, Normal Oropharynx - Neck Exam Neck Exam: Full ROM, Normal Inspection - Respiratory Exam Respiratory Exam: Clear to Ausculation Bilateral. absent: Rhonchi, Wheezes - Cardiovascular Exam Cardiovascular Exam: Irregular Rhythm, +S1, +S2. absent: Murmur - Extremities Exam Extremities Exam: Normal Inspection. absent: Calf Tenderness, Pedal Edema - Neurological Exam Neurological Exam: Alert, Awake, Oriented x3 - Psychiatric Exam Psychiatric exam: Normal Affect, Normal Mood - Skin Skin Exam: Normal Color, Warm Assessment and Plan - Assessment and Plan (Free Text) Assessment: 63 year old man with acute on chronic diastolic CHF now improved with diuresis Pleural effusions acute likely transudative, now improved. HTN is chronic and needs better control incease Cardizem 300 continue losartan 100 Paroxysmal atrial fibrillation NOAC for CVA prophylaxis Echo done 06/27/18 directly visualized by me: => Normal LV and RV function, restricitive diastolic filling, mod LAE, mod TR, mild-mod MR, moderate in PASP Plan: cont IV abx for LE cellulitis cont to titrate meds for better rate control: renal function is normal Digoxin 0.125 daily is a reasonable option if BETA-blockers will complicate ASTHMA/COPD. lasix 20mg daily to help maintain euvolemia. consideration of outpatient VOLODYMYR/cardioversion can be done if multiple drug regimine still causes NYHA 2 or > sx's. d/c planning
[2018-06-28] MEDS: Albuterol-Ipratrop 3 mg / 0.5 (3 ml) UD INH SCH (19:11)
--- NOTE | 2018-06-28 19:49 | CP.PCM.PN ---
Subjective - Date & Time of Evaluation Date of Evaluation: 06/28/18 Time of Evaluation: 09:15 - Subjective Subjective: clinically same Objective - Vital Signs/Intake and Output Vital Signs (last 24 hours): Temp Pulse Resp BP Pulse Ox 97.6 F 82 18 160/90 H 100 06/28/18 16:00 06/28/18 16:12 06/28/18 16:00 06/28/18 16:00 06/28/18 07:00 Intake and Output: 06/28/18 06/29/18 18:59 06:59 Intake Total 200 Output Total 275 Balance -75 - Medications Medications: Current Medications Albuterol/Ipratropium (Duoneb 3 Mg/0.5 Mg (3 Ml) Ud) 3 ml INH RQ6 [facility] Last Admin: 06/28/18 19:11 Dose: 3 ml Apixaban (Eliquis) 5 mg PO DAILY [facility] Last Admin: 06/28/18 10:13 Dose: 5 mg Budesonide (Pulmicort Respules) 0.5 mg INH RQ12 [facility] Last Admin: 06/28/18 19:11 Dose: 0.5 mg Colchicine (Colocrys) 0.6 mg PO DAILY [facility] Last Admin: 06/28/18 10:13 Dose: 0.6 mg Dextrose (Dextrose 50% Inj) 0 ml IV STAT PRN; Protocol PRN Reason: Hypoglycemia Protocol Dextrose (Glutose 15) 0 gm PO ONCE PRN; Protocol PRN Reason: Hypoglycemia Protocol Diltiazem HCl (Cardizem Cd) 300 mg PO DAILY [facility] Last Admin: 06/28/18 10:13 Dose: 300 mg Gabapentin (Neurontin) 300 mg PO BID [facility] Last Admin: 06/28/18 17:11 Dose: 300 mg Glimepiride (Amaryl) 2 mg PO DAILY [facility] Last Admin: 06/28/18 10:13 Dose: 2 mg Glucagon (Glucagen Diagnostic Kit) 0 mg IM STAT PRN; Protocol PRN Reason: Hypoglycemia Protocol Clindamycin Phosphate 600 mg/ (Sodium Chloride) 54 mls @ 100 mls/hr IVPB Q8H [facility] PRN Reason: Protocol Last Admin: 06/28/18 16:42 Dose: 100 mls/hr Aztreonam 1 gm/ Sodium (Chloride) 100 mls @ 200 mls/hr IVPB Q8H [facility] PRN Reason: Protocol Last Admin: 06/28/18 19:00 Dose: 200 mls/hr Vancomycin HCl 1 gm/ Sodium (Chloride) 250 mls @ 167 mls/hr IVPB DAILY@0130 [facility] PRN Reason: Protocol Stop: 07/03/18 01:31 Insulin Aspart (Novolog) 0 unit SC ACHS [facility] PRN Reason: Protocol Last Admin: 06/28/18 17:11 Dose: 1 unit Losartan Potassium (Cozaar) 100 mg PO DAILY [facility] Last Admin: 06/28/18 10:13 Dose: 100 mg Metformin HCl (Glucophage) 500 mg PO BID [facility] Last Admin: 06/28/18 17:11 Dose: 500 mg Methylprednisolone (Solu-Medrol) 40 mg IVP Q8 [facility] Last Admin: 06/28/18 14:08 Dose: 40 mg Pantoprazole Sodium (Protonix Ec Tab) 40 mg PO DAILY [facility] Last Admin: 06/28/18 10:14 Dose: 40 mg - Labs Labs: 06/28/18 07:03 06/28/18 07:03 PT 13.6 SECONDS (9.7-12.2) H 06/21/18 22:48 INR 1.2 06/21/18 22:48 APTT 29 SECONDS (21-34) 06/25/18 16:30 - Constitutional Appears: Well - Head Exam Head Exam: ATRAUMATIC, NORMAL INSPECTION, NORMOCEPHALIC - Eye Exam Eye Exam: EOMI, Normal appearance, PERRL Pupil Exam: NORMAL ACCOMODATION, PERRL - ENT Exam ENT Exam: Mucous Membranes Moist, Normal Exam - Neck Exam Neck Exam: Full ROM, Normal Inspection. absent: Lymphadenopathy - Respiratory Exam Respiratory Exam: Decreased Breath Sounds - Cardiovascular Exam Cardiovascular Exam: REGULAR RHYTHM, +S1, +S2 - GI/Abdominal Exam GI & Abdominal Exam: Soft, Diminished Bowel Sounds - Rectal Exam Rectal Exam: Deferred
[2018-06-29] MEDS: Albuterol-Ipratrop 3 mg / 0.5 (3 ml) UD INH SCH ×3 (03:07→13:40)
[2018-06-29] MEDS: Aztreonam 1 GM in Sodium Chloride 0.9% 100 ML IVPB SCH ×2 (04:58→12:45)
[2018-06-29] MEDS: MethylPREDNISolone 40 mg Vial IVP SCH ×2 (06:18→13:42)
[2018-06-29] MEDS: (Novolog) Insulin Aspart, Recombinant 100 u/ml 10 ml vial SC SCH ×2 (07:30→12:22)
--- NOTE | 2018-06-29 07:41 | CP.PCM.PN ---
Subjective - Date & Time of Evaluation Date of Evaluation: 06/29/18 Time of Evaluation: 07:41 - Subjective Subjective: NO new complaints feels better volume status improved Objective - Vital Signs/Intake and Output Vital Signs (last 24 hours): Temp Pulse Resp BP Pulse Ox 97.4 F L 89 20 150/80 97 06/28/18 23:50 06/28/18 23:50 06/28/18 23:50 06/28/18 23:50 06/28/18 23:50 Intake and Output: 06/29/18 06/29/18 06:59 18:59 Intake Total 1000 Balance 1000 - Medications Medications: Current Medications Albuterol/Ipratropium (Duoneb 3 Mg/0.5 Mg (3 Ml) Ud) 3 ml INH RQ6 [facility] Last Admin: 06/29/18 03:07 Dose: 3 ml Apixaban (Eliquis) 5 mg PO DAILY [facility] Last Admin: 06/28/18 10:13 Dose: 5 mg Budesonide (Pulmicort Respules) 0.5 mg INH RQ12 [facility] Last Admin: 06/28/18 19:11 Dose: 0.5 mg Colchicine (Colocrys) 0.6 mg PO DAILY [facility] Last Admin: 06/28/18 10:13 Dose: 0.6 mg Dextrose (Dextrose 50% Inj) 0 ml IV STAT PRN; Protocol PRN Reason: Hypoglycemia Protocol Dextrose (Glutose 15) 0 gm PO ONCE PRN; Protocol PRN Reason: Hypoglycemia Protocol Diltiazem HCl (Cardizem Cd) 300 mg PO DAILY [facility] Last Admin: 06/28/18 10:13 Dose: 300 mg Gabapentin (Neurontin) 300 mg PO BID [facility] Last Admin: 06/28/18 17:11 Dose: 300 mg Glimepiride (Amaryl) 2 mg PO DAILY [facility] Last Admin: 06/28/18 10:13 Dose: 2 mg Glucagon (Glucagen Diagnostic Kit) 0 mg IM STAT PRN; Protocol PRN Reason: Hypoglycemia Protocol Clindamycin Phosphate 600 mg/ (Sodium Chloride) 54 mls @ 100 mls/hr IVPB Q8H [facility] PRN Reason: Protocol Last Admin: 06/29/18 00:51 Dose: 100 mls/hr Aztreonam 1 gm/ Sodium (Chloride) 100 mls @ 200 mls/hr IVPB Q8H [facility] PRN Reason: Protocol Last Admin: 06/29/18 04:58 Dose: 200 mls/hr Vancomycin HCl 1 gm/ Sodium (Chloride) 250 mls @ 167 mls/hr IVPB DAILY@0130 [facility] PRN Reason: Protocol Stop: 07/03/18 01:31 Last Admin: 06/29/18 00:45 Dose: 167 mls/hr Insulin Aspart (Novolog) 0 unit SC ACHS [facility] PRN Reason: Protocol Last Admin: 06/28/18 21:27 Dose: Not Given Losartan Potassium (Cozaar) 100 mg PO DAILY [facility] Last Admin: 06/28/18 10:13 Dose: 100 mg Metformin HCl (Glucophage) 500 mg PO BID [facility] Last Admin: 06/28/18 17:11 Dose: 500 mg Methylprednisolone (Solu-Medrol) 40 mg IVP Q8 [facility] Last Admin: 06/29/18 06:18 Dose: 40 mg Pantoprazole Sodium (Protonix Ec Tab) 40 mg PO DAILY [facility] Last Admin: 06/28/18 10:14 Dose: 40 mg - Labs Labs: 06/28/18 07:03 06/28/18 07:03 PT 13.6 SECONDS (9.7-12.2) H 06/21/18 22:48 INR 1.2 06/21/18 22:48 APTT 29 SECONDS (21-34) 06/25/18 16:30 - Constitutional Appears: No Acute Distress - Head Exam Head Exam: ATRAUMATIC, NORMAL INSPECTION, NORMOCEPHALIC - Eye Exam Eye Exam: EOMI, Normal appearance, PERRL - ENT Exam ENT Exam: Mucous Membranes Moist, Normal Exam - Neck Exam Neck Exam: Full ROM, Normal Inspection - Respiratory Exam Respiratory Exam: Clear to Ausculation Bilateral, NORMAL BREATHING PATTERN. absent: Rhonchi, Wheezes - Cardiovascular Exam Cardiovascular Exam: Irregular Rhythm, +S1. absent: Murmur - GI/Abdominal Exam GI & Abdominal Exam: Soft, Normal Bowel Sounds. absent: Tenderness - Extremities Exam Extremities Exam: Normal Inspection. absent: Calf Tenderness, Pedal Edema - Neurological Exam Neurological Exam: Alert, Awake, Oriented x3 - Psychiatric Exam Psychiatric exam: Normal Affect, Normal Mood - Skin Skin Exam: Normal Color, Warm Assessment and Plan - Assessment and Plan (Free Text) Assessment: - 63 year old man with acute on chronic diastolic CHF now improved with diuresis - Pleural effusions acute likely transudative, now improved. - HTN is chronic and needs better control incease Cardizem 300 continue losartan 100 - Paroxysmal atrial fibrillation NOAC for CVA prophylaxis Echo done 06/27/18 directly visualized by me: => Normal LV and RV function, restricitive diastolic filling, mod LAE, mod TR, mild-mod MR, moderate in PASP Plan: cont IV abx for LE cellulitis cont to titrate meds for better rate control: renal function is normal Digoxin 0.125 daily is a reasonable option if BETA-blockers will complicate ASTHMA/COPD. lasix 20mg daily to help maintain euvolemia. consideration of outpatient VOLODYMYR/cardioversion can be done if multiple drug regimine still causes NYHA 2 or > sx's. d/c planning appropriate: f/u with us as outpatient:
[2018-06-29] MEDS: Budesonide 0.5 mg/2 ml Inhal Susp UD INH SCH (07:43)
[2018-06-29 08:31] LABS: BASO % 0.1 % (0.0-2.0); HEMOGLOBIN 13.6 g/dL (12.0-18.0); LYMPH # 0.5 K/uL (1.0-4.3); MEAN CELL VOLUME 91.7 fL (80.0-94.0); MEAN CORPUSCULAR HEMOGLOBIN 30.5 pg (27.0-31.0); MEAN CORPUSCULAR HGB CONC 33.3 g/dL (33.0-37.0); MEAN PLATELET VOLUME 10.4 fL (7.2-11.7); MONO # 0.7 K/uL (0.0-0.8); MONO % 3.8 % (0.0-10.0); NEUT # 16.6 K/uL (1.8-7.0); NEUT % 93.1 % (50.0-75.0); NRBC % 0.1 % (0.0-2.0); PLATELET COUNT 208 K/uL (130-400); RBC 4.45 Mil/uL (4.40-5.90); WHITE BLOOD COUNT 17.9 K/uL (4.8-10.8)
[2018-06-29 08:39] LABS: ALB/GLOB RATIO 1.3 (1.0-2.1); ALBUMIN 3.4 g/dL (3.5-5.0); ALT/SGPT 42 U/L (21-72); AST/SGOT 19 U/L (17-59); BLOOD UREA NITROGEN 32 mg/dL (9-20); CALCIUM 10.4 mg/dl (8.6-10.4); GFR AFRICAN-AMERICAN > 60; GFR NON-AFRICAN AMERICAN > 60
[2018-06-29 09:20] LABS: LYMPHOCYTE 5 % (20-40); MONOCYTE 4 % (0-10); NEUTROPHIL 91 % (50-75); NUCLEATED RED BLOOD CELL 1 % (0-0); PLATELET ESTIMATE NORMAL (NORMAL); TOTAL CELLS COUNTED 100
[2018-06-29] MEDS: diltiaZEM 300 mg/24 Hours CD Cap PO SCH ×2 (10:42→10:50)
[2018-06-29] MEDS: Pantoprazole 40 mg EC Tab PO SCH (10:42)
[2018-06-29 11:16] VITALS: BP 167/94; RESP 18; TEMP 97.8
--- NOTE | 2018-06-29 15:48 | CP.PCM.PN ---
Subjective - Date & Time of Evaluation Date of Evaluation: 06/29/18 Time of Evaluation: 09:35 - Subjective Subjective: PGY2 Medicine Note for Dr. Agueda Conley Patient seen and examined this morning at bedside. No acute events overnight. Patient is feeling well and without complaints. His breathing is back to normal and is happy to be discharged today. He is tolerating his diet. Denies pain. Patient denies fever, chills, chest pain, shortness of breath, abdominal pain, nausea, vomiting, constipation, or diarrhea. Objective - Vital Signs/Intake and Output Vital Signs (last 24 hours): Temp Pulse Resp BP Pulse Ox 97.8 F 118 H 18 167/94 H 100 06/29/18 07:00 06/29/18 10:44 06/29/18 07:00 06/29/18 10:44 06/29/18 07:00 Intake and Output: 06/29/18 06/29/18 06:59 18:59 Intake Total 1000 Balance 1000 - Medications Medications: Current Medications Albuterol/Ipratropium (Duoneb 3 Mg/0.5 Mg (3 Ml) Ud) 3 ml INH RQ6 [facility] Last Admin: 06/29/18 13:40 Dose: 3 ml Apixaban (Eliquis) 5 mg PO DAILY [facility] Last Admin: 06/29/18 10:43 Dose: 5 mg Budesonide (Pulmicort Respules) 0.5 mg INH RQ12 [facility] Last Admin: 06/29/18 07:43 Dose: 0.5 mg Colchicine (Colocrys) 0.6 mg PO DAILY [facility] Last Admin: 06/29/18 10:43 Dose: 0.6 mg Dextrose (Dextrose 50% Inj) 0 ml IV STAT PRN; Protocol PRN Reason: Hypoglycemia Protocol Dextrose (Glutose 15) 0 gm PO ONCE PRN; Protocol PRN Reason: Hypoglycemia Protocol Diltiazem HCl (Cardizem Cd) 300 mg PO DAILY [facility] Last Admin: 06/29/18 10:50 Dose: 300 mg Gabapentin (Neurontin) 300 mg PO BID [facility] Last Admin: 06/29/18 10:43 Dose: 300 mg Glimepiride (Amaryl) 2 mg PO DAILY [facility] Last Admin: 06/29/18 10:43 Dose: 2 mg Glucagon (Glucagen Diagnostic Kit) 0 mg IM STAT PRN; Protocol PRN Reason: Hypoglycemia Protocol Clindamycin Phosphate 600 mg/ (Sodium Chloride) 54 mls @ 100 mls/hr IVPB Q8H [facility] PRN Reason: Protocol Last Admin: 06/29/18 08:47 Dose: 100 mls/hr Aztreonam 1 gm/ Sodium (Chloride) 100 mls @ 200 mls/hr IVPB Q8H [facility] PRN Reason: Protocol Last Admin: 06/29/18 12:45 Dose: Not Given Vancomycin HCl 1 gm/ Sodium (Chloride) 200 mls @ 167 mls/hr IVPB DAILY@0130 [facility] PRN Reason: Protocol Stop: 07/03/18 01:31 Insulin Aspart (Novolog) 0 unit SC ACHS [facility] PRN Reason: Protocol Last Admin: 06/29/18 12:22 Dose: 1 unit Losartan Potassium (Cozaar) 100 mg PO DAILY [facility] Last Admin: 06/29/18 10:51 Dose: 100 mg Metformin HCl (Glucophage) 500 mg PO BID [facility] Last Admin: 06/29/18 10:42 Dose: 500 mg Methylprednisolone (Solu-Medrol) 40 mg IVP Q8 [facility] Last Admin: 06/29/18 13:42 Dose: Not Given Pantoprazole Sodium (Protonix Ec Tab) 40 mg PO DAILY [facility] Last Admin: 06/29/18 10:42 Dose: 40 mg - Labs Labs: 06/29/18 08:17 06/29/18 08:17 PT 13.6 SECONDS (9.7-12.2) H 06/21/18 22:48 INR 1.2 06/21/18 22:48 APTT 29 SECONDS (21-34) 06/25/18 16:30 Assessment and Plan - Assessment and Plan (Free Text) Plan: - Constitutional Appears: Non-toxic, No Acute Distress - Head Exam Head Exam: ATRAUMATIC, NORMOCEPHALIC - Eye Exam Eye Exam: Normal appearance - ENT Exam ENT Exam: Mucous Membranes Moist - Respiratory Exam Respiratory Exam: Clear to Ausculation Bilateral, NORMAL BREATHING PATTERN. absent: Accessory Muscle Use, Rales, Rhonchi, Wheezes, Respiratory Distress - Cardiovascular Exam Cardiovascular Exam: Irregular Rhythm, +S1, +S2 - GI/Abdominal Exam GI & Abdominal Exam: Soft. absent: Distended, Firm, Guarding, Rigid, Tenderness - Extremities Exam Extremities Exam: absent: Calf Tenderness, Pedal Edema Additional comments: Erythema resolved b/l. chronic skin changes noted. - Back Exam Additional comments: left upper back wound covered with dressing - wound has granular tissue at base , dressing c/d/i - Neurological Exam Neurological Exam: Alert, Awake, Oriented x3 Neuro motor strength exam: Left Upper Extremity: 5, Right Upper Extremity: 5, Left Lower Extremity: 5, Right Lower Extremity: 5 - Psychiatric Exam Psychiatric exam: Normal Affect, Normal Mood - Skin Skin Exam: Dry, Warm Additional comments: as per extremities and back exam Assessment and Plan - Assessment and Plan (Free Text) Plan: Back Wound -afebrile -elevated WBC - likely due to steroid use - will continue to monitor * left shift * no bands -ID, Dr. Morton consulted, help appreciated * Wants patient to have IV abx for at least 1 more days. Can hopefully d/c on oral abx afterwards. -MRSA and enterobacter cloacae on 06/14 -wound care * dressing changes per wound care -Blood cultures negative 06/22/18: negative x 5 days -Vanco 1 gm IVPB daily -Aztreonam 1gm IVPB daily -Clindamycin 600mg IVPB q8h LE Cellulitis (improving) -ID, Dr. Morton consulted, help appreciated * Vanco 1 gm daily * Vanco trough 12.2 on 06/27 * Aztreonam 1gm IVPB daily * Clindamycin 600mg IVPB q8h * Patient has completed course of antibiotics. -Vascular consulted, Dr. Conteh - help appreciated * Venous duplex: no evidence of deep or superficial vein thrombosis, normal valve function * LE arterial ultrasound: no evidence of hemodynamically significant arterial insufficiency SOB (resolved) -2/2 COPD -Pulmonary, Dr. Mai consulted, help appreciated -CTA: no evidence of acute central pulmonary embolus. small to medium size right sided effusion and slightly smaller left sided effusion with bibasilar atelectasis. cardiomegaly. -ECHO 06/27/18: LVEF ~60-65%, borderline concentric LVH, mild-mod MR, mod-severe pulm HTN -Cardio consult, Dr. Ramos - help appreciated * cont to titrate meds for better rate control: renal function is normal Digoxin 0.125 daily is a reasonable option if BETA-blockers will complicate ASTHMA/COPD. * lasix 20mg daily to help maintain euvolemia. * consideration of outpatient VOLODYMYR/cardioversion can be done if multiple drug regimine still causes NYHA 2 or > sx's. -Solu-Medrol 40mg ivp q8h -Duonebs q6h -Pulmicort respules q12h DMII -Metformin 500mg po BID -ISS -Glimepiride 2mg po daily -accuchecks -hypoglycemia protocol Afib -Cardizem 240mg po daily -Eliquis 5mg po daily -Cardio consult, Dr. Ramos - help appreciated * cont to titrate meds for better rate control: renal function is normal Digoxin 0.125 daily is a reasonable option if BETA-blockers will complicate ASTHMA/COPD. * lasix 20mg daily to help maintain euvolemia. * consideration of outpatient VOLODYMYR/cardioversion can be done if multiple drug regimine still causes NYHA 2 or > sx's. HTN -Cozaar 100mg po daily Hx Gout -Colchicine .6mg po daily Prophylaxis on Eliquis Protonix 40mg po daily DISPO: Patient is to be discharged home per Dr. Agueda Conley. Patient is to be discharged home per Dr. Agueda Conley Patient is to follow up with Dr. Agueda Conley in his office on Wednesday07/01/18 at 2: 00pm. Patient is to follow up with Dr. Ramos in his office within 1-2 weeks. Please call and schedule an appointment. Patient is to follow up with Dr. Mai in his office within 1-2 weeks. Please call and schedule an appointment. Patient is to take his medications as directed. If patient experiences any new or worsening symptoms, please go directly to the nearest emergency department. All medical management as per Dr. Jarvis Oliver Anika PGY2
[2018-06-29 17:34] VITALS: PULSE 109; O2SAT 99
--- NOTE | 2018-06-29 17:39 | CP.PCM.PN ---
Subjective - Date & Time of Evaluation Date of Evaluation: 06/29/18 Time of Evaluation: 10:00 - Subjective Subjective: cellulitis improved no fever Objective - Vital Signs/Intake and Output Vital Signs (last 24 hours): Temp Pulse Resp BP Pulse Ox 97.8 F 109 H 18 167/94 H 99 06/29/18 15:00 06/29/18 15:56 06/29/18 15:00 06/29/18 10:44 06/29/18 15:00 Intake and Output: 06/29/18 06/29/18 06:59 18:59 Intake Total 1000 100 Output Total 250 Balance 1000 -150 - Medications Medications: Current Medications Albuterol/Ipratropium (Duoneb 3 Mg/0.5 Mg (3 Ml) Ud) 3 ml INH RQ6 [facility] Last Admin: 06/29/18 13:40 Dose: 3 ml Apixaban (Eliquis) 5 mg PO DAILY [facility] Last Admin: 06/29/18 10:43 Dose: 5 mg Budesonide (Pulmicort Respules) 0.5 mg INH RQ12 [facility] Last Admin: 06/29/18 07:43 Dose: 0.5 mg Colchicine (Colocrys) 0.6 mg PO DAILY [facility] Last Admin: 06/29/18 10:43 Dose: 0.6 mg Dextrose (Dextrose 50% Inj) 0 ml IV STAT PRN; Protocol PRN Reason: Hypoglycemia Protocol Dextrose (Glutose 15) 0 gm PO ONCE PRN; Protocol PRN Reason: Hypoglycemia Protocol Diltiazem HCl (Cardizem Cd) 300 mg PO DAILY [facility] Last Admin: 06/29/18 10:50 Dose: 300 mg Gabapentin (Neurontin) 300 mg PO BID [facility] Last Admin: 06/29/18 10:43 Dose: 300 mg Glimepiride (Amaryl) 2 mg PO DAILY [facility] Last Admin: 06/29/18 10:43 Dose: 2 mg Glucagon (Glucagen Diagnostic Kit) 0 mg IM STAT PRN; Protocol PRN Reason: Hypoglycemia Protocol Clindamycin Phosphate 600 mg/ (Sodium Chloride) 54 mls @ 100 mls/hr IVPB Q8H [facility] PRN Reason: Protocol Last Admin: 06/29/18 08:47 Dose: 100 mls/hr Aztreonam 1 gm/ Sodium (Chloride) 100 mls @ 200 mls/hr IVPB Q8H [facility] PRN Reason: Protocol Last Admin: 06/29/18 12:45 Dose: Not Given Vancomycin HCl 1 gm/ Sodium (Chloride) 200 mls @ 167 mls/hr IVPB DAILY@0130 [facility] PRN Reason: Protocol Stop: 07/03/18 01:31 Insulin Aspart (Novolog) 0 unit SC ACHS [facility] PRN Reason: Protocol Last Admin: 06/29/18 12:22 Dose: 1 unit Losartan Potassium (Cozaar) 100 mg PO DAILY [facility] Last Admin: 06/29/18 10:51 Dose: 100 mg Metformin HCl (Glucophage) 500 mg PO BID [facility] Last Admin: 06/29/18 10:42 Dose: 500 mg Methylprednisolone (Solu-Medrol) 40 mg IVP Q8 [facility] Last Admin: 06/29/18 13:42 Dose: Not Given Pantoprazole Sodium (Protonix Ec Tab) 40 mg PO DAILY [facility] Last Admin: 06/29/18 10:42 Dose: 40 mg - Labs Labs: 06/29/18 08:17 06/29/18 08:17 PT 13.6 SECONDS (9.7-12.2) H 06/21/18 22:48 INR 1.2 06/21/18 22:48 APTT 29 SECONDS (21-34) 06/25/18 16:30 - Constitutional Appears: Non-toxic, Chronically Ill - Head Exam Head Exam: NORMOCEPHALIC - Eye Exam Eye Exam: PERRL - ENT Exam ENT Exam: Mucous Membranes Dry - Neck Exam Neck Exam: absent: Lymphadenopathy - Respiratory Exam Respiratory Exam: Decreased Breath Sounds - Cardiovascular Exam Cardiovascular Exam: REGULAR RHYTHM - GI/Abdominal Exam GI & Abdominal Exam: Distended, Soft - Rectal Exam Rectal Exam: Deferred - Exam Exam: NORMAL INSPECTION - Extremities Exam Extremities Exam: absent: Pedal Edema - Back Exam Back Exam: absent: CVA tenderness (L), CVA tenderness (R) - Neurological Exam Neurological Exam: Alert, Awake, Oriented x3 Assessment and Plan (1) Diabetes Status: Acute (2) Chronic foot ulcer Status: Acute (3) Cellulitis of lower extremity Status: Acute (4) PVD (peripheral vascular disease) Status: Acute
--- NOTE | 2018-06-29 17:45 | CP.PCM.PN ---
Subjective - Date & Time of Evaluation Date of Evaluation: 06/29/18 Time of Evaluation: 09:15 - Subjective Subjective: clinically same Objective - Vital Signs/Intake and Output Vital Signs (last 24 hours): Temp Pulse Resp BP Pulse Ox 97.8 F 109 H 18 167/94 H 99 06/29/18 15:00 06/29/18 15:56 06/29/18 15:00 06/29/18 10:44 06/29/18 15:00 Intake and Output: 06/29/18 06/29/18 06:59 18:59 Intake Total 1000 400 Output Total 250 Balance 1000 150 - Labs Labs: 06/29/18 08:17 06/29/18 08:17 PT 13.6 SECONDS (9.7-12.2) H 06/21/18 22:48 INR 1.2 06/21/18 22:48 APTT 29 SECONDS (21-34) 06/25/18 16:30 - Constitutional Appears: Well - Head Exam Head Exam: ATRAUMATIC, NORMAL INSPECTION, NORMOCEPHALIC - Eye Exam Eye Exam: EOMI, Normal appearance, PERRL Pupil Exam: NORMAL ACCOMODATION, PERRL - ENT Exam ENT Exam: Mucous Membranes Moist, Normal Exam - Neck Exam Neck Exam: Full ROM, Normal Inspection. absent: Lymphadenopathy - Respiratory Exam Respiratory Exam: Decreased Breath Sounds - Cardiovascular Exam Cardiovascular Exam: REGULAR RHYTHM, +S1, +S2 - GI/Abdominal Exam GI & Abdominal Exam: Soft, Diminished Bowel Sounds - Rectal Exam Rectal Exam: Deferred
[2018-06-30] MEDS ORDERED: Vancomycin 1 GM in Sodium Chloride 0.9% 200 ML IVPB SCH (01:30)
== END 2018-06-29 17:42 | disposition home or self-care (01) | DRG 563 ==
LOC: EDBD → C.ER 21:09 → C.9E 06-22 00:41 → EDUNIT# 06-22 00:41 → C.5S 06-22 03:31
PROVIDERS: ADMIT Internal Medicine Nephrology; ATTEND Internal Medicine Nephrology
DX: L03.116 Cellulitis of left lower limb (principal); I50.33 Acute on chronic diastolic (congestive) heart failure; J44.1 Chronic obstructive pulmonary disease with (acute) exacerbation; I11.0 Hypertensive heart disease with heart failure; E10.51 Type 1 diabetes mellitus with diabetic peripheral angiopathy without gangrene; E10.621 Type 1 diabetes mellitus with foot ulcer; L97.509 Non-pressure chronic ulcer of other part of unspecified foot with unspecified severity; L03.115 Cellulitis of right lower limb; I48.91 Unspecified atrial fibrillation; B95.62 Methicillin resistant Staphylococcus aureus infection as the cause of diseases classified elsewhere; B96.89 Other specified bacterial agents as the cause of diseases classified elsewhere; E78.00 Pure hypercholesterolemia, unspecified; E78.5 Hyperlipidemia, unspecified; Z72.0 Tobacco use; Z79.4 Long term (current) use of insulin; Z88.0 Allergy status to penicillin

== ENCOUNTER 2018-07-02 16:07 | Emergency (ER) | payer MEDICAID ==
[2018-07-02 16:08] VITALS: PULSE 72; BMI 34.9
[2018-07-02 17:07] LABS: BASO % 0.5 % (0.0-2.0); EOS # 0.3 K/uL (0.0-0.7); EOS % 2.6 % (0.0-4.0); HEMOGLOBIN 13.3 g/dL (12.0-18.0); LYMPH # 1.5 K/uL (1.0-4.3); LYMPH % 14.6 % (20.0-40.0); MEAN CELL VOLUME 92.1 fL (80.0-94.0); MEAN CORPUSCULAR HEMOGLOBIN 30.5 pg (27.0-31.0); MEAN CORPUSCULAR HGB CONC 33.2 g/dL (33.0-37.0); MEAN PLATELET VOLUME 9.9 fL (7.2-11.7); MONO % 10.1 % (0.0-10.0); NEUT # 7.5 K/uL (1.8-7.0); NEUT % 72.2 % (50.0-75.0); NRBC % 0.1 % (0.0-2.0); RBC 4.36 Mil/uL (4.40-5.90); RED CELL DISTRIBUTION WIDTH 16.3 % (11.5-14.5); WHITE BLOOD COUNT 10.3 K/uL (4.8-10.8)
[2018-07-02 17:24] LABS: ALB/GLOB RATIO 1.5 (1.0-2.1); ALBUMIN 3.5 g/dL (3.5-5.0); ALT/SGPT 51 U/L (21-72); AST/SGOT 19 U/L (17-59); BLOOD UREA NITROGEN 27 mg/dL (9-20); CALCIUM 10.3 mg/dl (8.6-10.4); GFR AFRICAN-AMERICAN 53; GFR NON-AFRICAN AMERICAN 44
[2018-07-02 17:32] LABS: B-TYPE NATRIURETIC PEPTIDE 657 pg/mL (0-900)
[2018-07-02 17:58] VITALS: BP 137/77; PULSE 100; RESP 18; TEMP 98; O2SAT 100
--- NOTE | 2018-07-02 18:03 | RAD ---
Chest x-ray single frontal view History: Shortness of breath. Comparison: 04/13/2017 Findings: Biapical pleural thickening with upper lobe granulomatous changes. Mild venous congestion. Patchy increased markings at the lung bases. Mild cardiomegaly. Degenerative changes in the spine and shoulders. Impression: Biapical pleural thickening with upper lobe granulomatous changes. Mild venous congestion. Patchy increased markings at the lung bases. Mild cardiomegaly.
--- NOTE | 2018-07-02 18:22 | C.PDOC ---
History Of Present Illness 63 y/o male presents to ED for evaluation of leg swelling for the last 2 days. Pt was recently discharged from hospital for same. Notes he is compliant with meds. He denies chest pain, shortness of breath, fever, or cough. Time Seen by Provider: 07/02/18 16:27 Chief Complaint (Nursing): Shortness Of Breath History Per: Patient History/Exam Limitations: no limitations Past Medical History Reviewed: Historical Data, Nursing Documentation, Vital Signs Vital Signs: Last Vital Signs Temp 98 F 07/02/18 17:56 Pulse 100 H 07/02/18 17:56 Resp 18 07/02/18 17:56 BP 137/77 07/02/18 17:56 Pulse Ox 100 07/02/18 18:28 - Medical History PMH: Anxiety, Asthma, Atrial Fibrillation, Bronchitis, CAD, Cardia Arrhythmia, CHF, COPD, CVA, Depression, Diabetes, Deep Vein Thrombosis, Gastritis, HTN, Hypercholesterolemia, Hyperlipidemia, Hyperthyroidism, Peripheral Edema, Pneumonia, Pulmonary Embolism Denies: HIV, Chronic Kidney Disease - [facility] Procedures DRAINAGE OF L UP ARM SUBCU/FASCIA, OPEN APPROACH (05/25/18) EXERCISE TREATMENT OF MUSCULOSK WHOLE USING ASSIST EQUIPMENT (05/31/18) GAIT TRAINING/AMBULAT TREATMENT USING ASSIST EQUIPMENT (05/31/18) HOME MANAGEMENT TREATMENT USING ASSIST EQUIPMENT (05/31/18) INDIVID PSYCHOTHERAP NEC (08/31/14) INJECT/INFUSE NEC (03/07/15) INTRODUCE OF OTH ANTI-INFECT INTO PERIPH VEIN, PERC APPROACH (05/31/18) INTRODUCE OF OTH THERAP SUBST INTO RESP TRACT, VIA OPENING (11/13/17) MEASURE OF CARDIAC SAMPL & PRESSURE, L HEART, PERC APPROACH (02/19/17) NEBULIZER THERAPY (03/20/15) PHYSICAL THERAPY NEC (07/22/14) PLAIN RADIOGRAPHY OF LEFT HEART USING OTHER CONTRAST (02/19/17) PLAIN RADIOGRAPHY OF MULT COR ART USING OTH CONTRAST (02/19/17) VACCINATION NEC (02/09/15) Family History: States: [place], CAD, Diabetes, Hypertension (mother) - Social History Hx Alcohol Use: No Hx Substance Use: No - Immunization History Hx Tetanus Toxoid Vaccination: No Hx Influenza Vaccination: No Hx Pneumococcal Vaccination: No Review Of Systems Except As Marked, All Systems Reviewed And Found Negative. Constitutional: Negative for: Fever, Chills Cardiovascular: Negative for: Chest Pain, Palpitations Respiratory: Negative for: Cough, Shortness of Breath Skin: Positive for: Other (leg swelling) Physical Exam - Physical Exam Appears: Non-toxic, No Acute Distress Skin: Warm, Dry Head: Atraumatic, Normacephalic Eye(s): bilateral: Normal Inspection Oral Mucosa: Moist Neck: Normal ROM, Supple Chest: Symmetrical Cardiovascular: Rhythm Irregular Respiratory: Normal Breath Sounds, No Rales, No Rhonchi, No Wheezing Gastrointestinal/Abdominal: Soft, No Tenderness Extremity: Normal ROM, Other (chronic venous stasis to lower extremities) Neurological/Psych: Oriented x3, Normal Speech ED Course And Treatment - Laboratory Results Result Diagrams: 07/02/18 17:00 07/02/18 17:00 O2 Sat by Pulse Oximetry: 100 Medical Decision Making Medical Decision Making: Plan: * Blood work * CXR * EKG * Lasix On re-eval, pt feels better and is being discharged home with instructions to follow up with PMD. Disposition - Disposition Referrals: Kayleigh Bower, [Non-Staff] - Disposition: HOME/ ROUTINE Disposition Time: 17:50 Condition: GOOD Additional Instructions: BRITANY BEYER, thank you for letting us take care of you today. The emergency medical care you received today was directed at your acute symptoms. If you were prescribed any medication, please fill it and take as directed. It may take several days for your symptoms to resolve. Return to the Emergency Department if your symptoms worsen, do not improve, or if you have any other problems. Please contact your doctor or call one of the physicians/clinics you have been referred to that are listed on the Patient Visit Information form that is included in your discharge packet. Bring any paperwork you were given at discharge with you along with any medications you are taking to your follow up visit. Our treatment cannot replace ongoing medical care by a primary care provider outside of the emergency department. Thank you for allowing the [facility] team to be part of your care today. Continue taking all your medications as prescribed. Follow up with your primary care doctor in 2-3 days for re-evaluation and further management. Instructions: Dependent Edema (DC) Forms: Localist (U[place]ayan) - Clinical Impression Clinical Impression: PVD (peripheral vascular disease) - Scribe Statement The provider has reviewed the documentation as recorded by the Scribe KP All medical record entries made by the Rohit were at my direction and personally dictated by me. I have reviewed the chart and agree that the record accurately reflects my personal performance of the history, physical exam, medical decision making, and the department course for this patient. I have also personally directed, reviewed, and agree with the discharge instructions and disposition.
--- NOTE | 2018-07-05 16:48 | CARD ---
APPROVED REPORT Date of service: 07/02/2018 EKG Measurement Heart [id number] <Conclusion> Atrial fibrillation Abnormal ECG
== END 2018-07-02 17:58 | disposition home or self-care (01) ==
LOC: C.ER 16:07
DX: I73.9 Peripheral vascular disease, unspecified (principal)

== ENCOUNTER 2018-10-29 22:27 | Emergency (ER) | payer MEDICAID ==
[2018-10-29 22:27] VITALS: PULSE 81
[2018-10-29] MEDS ORDERED: Albuterol-Ipratrop 3 mg / 0.5 (3 ml) UD INH STA (22:30)
[2018-10-29 22:35] VITALS: RESP 18; TEMP 98; O2SAT 98; BMI 38.7
[2018-10-29] MEDS ORDERED: Albuterol-Ipratrop 3 mg / 0.5 (3 ml) UD ONE (22:37)
--- NOTE | 2018-10-29 22:40 | C.PDOC ---
History Of Present Illness 63 year old male, whose past medical history includes asthma, presents to the ED for evaluation of asthma symptoms which he has been experiencing over the past year but worsened tonight. Patient reports he has been experiencing a cough. He has been using his inhaler without significant relief. Current visit is patient's fifth visit this month related to asthma. He denies fever, chills, and chest pain. Time Seen by Provider: 10/29/18 22:29 Chief Complaint (Nursing): Shortness Of Breath History Per: Patient History/Exam Limitations: no limitations Onset/Duration Of Symptoms: Other (one year ) Current Symptoms Are (Timing): Worse Exacerbating Factor(s): Coughing Current Respiratory Medications: See Home Med List Associated Symptoms: denies: Fever, Chills Additional History Per: Patient Past Medical History Reviewed: Historical Data, Nursing Documentation, Vital Signs Vital Signs: Last Vital Signs Temp 98 F 10/29/18 22:31 Pulse 78 10/29/18 22:31 Resp 18 10/29/18 22:34 BP 136/79 10/29/18 22:31 Pulse Ox 98 10/29/18 22:34 - Medical History PMH: Anxiety, Asthma, Atrial Fibrillation, Bronchitis, CAD, Cardia Arrhythmia, CHF, COPD, CVA, Depression, Diabetes, Deep Vein Thrombosis, Gastritis, HTN, Hypercholesterolemia, Hyperlipidemia, Hyperthyroidism, Peripheral Edema, Pneumonia, Pulmonary Embolism Denies: HIV, Chronic Kidney Disease Surgical History: Hernia Repair - [facility] Procedures DRAINAGE OF L UP ARM SUBCU/FASCIA, OPEN APPROACH (05/25/18) EXERCISE TREATMENT OF MUSCULOSK WHOLE USING ASSIST EQUIPMENT (05/31/18) GAIT TRAINING/AMBULAT TREATMENT USING ASSIST EQUIPMENT (05/31/18) HOME MANAGEMENT TREATMENT USING ASSIST EQUIPMENT (05/31/18) INDIVID PSYCHOTHERAP NEC (08/31/14) INJECT/INFUSE NEC (03/07/15) INTRODUCE OF OTH ANTI-INFECT INTO PERIPH VEIN, PERC APPROACH (05/31/18) INTRODUCE OF OTH THERAP SUBST INTO RESP TRACT, VIA OPENING (11/13/17) MEASURE OF CARDIAC SAMPL & PRESSURE, L HEART, PERC APPROACH (02/19/17) NEBULIZER THERAPY (03/20/15) PHYSICAL THERAPY NEC (07/22/14) PLAIN RADIOGRAPHY OF LEFT HEART USING OTHER CONTRAST (02/19/17) PLAIN RADIOGRAPHY OF MULT COR ART USING OTH CONTRAST (02/19/17) VACCINATION NEC (02/09/15) Family History: States: [place], CAD, Diabetes, Hypertension (mother) - Social History Hx Alcohol Use: Yes Hx Substance Use: Yes (cocaine) - Immunization History Hx Tetanus Toxoid Vaccination: No Hx Influenza Vaccination: No Hx Pneumococcal Vaccination: No Review Of Systems Constitutional: Negative for: Fever, Chills Cardiovascular: Negative for: Chest Pain Respiratory: Positive for: Cough Physical Exam - Physical Exam Appears: Non-toxic, No Acute Distress Skin: Normal Color, Warm, Dry Head: Atraumatic, Normacephalic Eye(s): bilateral: Normal Inspection Oral Mucosa: Moist Neck: Supple Chest: Symmetrical, No Deformity, No Tenderness Cardiovascular: Rhythm Regular, No Murmur Respiratory: Wheezing (scattered ), Other (coarse breath sounds noted ) Extremity: Normal ROM, Capillary Refill (less than 2 seconds ) Neurological/Psych: Oriented x3, Normal Speech, Normal Cognition ED Course And Treatment - Laboratory Results Result Diagrams: 10/29/18 22:40 10/29/18 22:40 O2 Sat by Pulse Oximetry: 98 Pulse Ox Interpretation: Normal Medical Decision Making Medical Decision Making: Impression: 63 year old male with worsening asthma symptoms, cough Plan: * Bloodwork * CXR * Albuterol INH * reassess and disposition Progress: Bloodwork and CXR ordered and reviewed. Albuterol INH given. 2310- Patient re-evaluated. HR improved to 78. Labs and CXR unremarkable. Per previous records, patient was given Rx for medrol dose pack twice this month already. He has had multiple visits for similar symptoms, workup always unremarkable. Notes from [facility] mention that patient is homeless with bed seeking behavior. Advised followup with PMD. Disposition - Disposition Disposition: HOME/ ROUTINE Disposition Time: 23:15 Condition: STABLE Additional Instructions: BRITANY BEYER, thank you for letting us take care of you today. Your provider was Val Lang MD and you were treated for COUGH. The emergency medical care you received today was directed at your acute symptoms. If you were prescribed any medication, please fill it and take as directed. It may take several days for your symptoms to resolve. Return to the Emergency Department if your symptoms worsen, do not improve, or if you have any other problems. Please contact your doctor or call one of the physicians/clinics you have been referred to that are listed on the Patient Visit Information form that is included in your discharge packet. Bring any paperwork you were given at discharge with you along with any medications you are taking to your follow up visit. Our treatment cannot replace ongoing medical care by a primary care provider outside of the emergency department. Thank you for allowing the [facility] team to be part of your care today. If you had an X-Ray or CT scan: A Radiologist will review the ED reading if any change in treatment is needed we will contact you. If you had a blood, urine, or wound culture: It will take several days for the results, if any change in treatment is needed we will contact you. If you had an STI test: It will take 48 hours for the results. Please call after 1 week if you have not heard back. Instructions: Exacerbation of COPD (DC) Forms: Gen Discharge Inst Syrian, Nubli (Syrian) Print Language: HEBREW - Clinical Impression Clinical Impression: Asthma, COPD with acute exacerbation - Scribe Statement The provider has reviewed the documentation as recorded by the Scribe (Rosmery Conley) Provider Attestation: All medical record entries made by the Scribe were at my direction and per sonally dictated by me. I have reviewed the chart and agree that the record accurately reflects my personal performance of the history, physical exam, medical decision making, and the department course for this patient. I have also personally directed, reviewed, and agree with the discharge instructions and disposition.
[2018-10-29 22:45] LABS: BASO # 0.1 K/uL (0.0-0.2); BASO % 0.5 % (0.0-2.0); EOS % 0.3 % (0.0-4.0); HEMOGLOBIN 12.1 g/dL (12.0-18.0); LYMPH # 1.7 K/uL (1.0-4.3); LYMPH % 13.8 % (20.0-40.0); MEAN CELL VOLUME 86.7 fL (80.0-94.0); MEAN CORPUSCULAR HEMOGLOBIN 27.9 pg (27.0-31.0); MEAN CORPUSCULAR HGB CONC 32.2 g/dL (33.0-37.0); MEAN PLATELET VOLUME 10.1 fL (7.2-11.7); MONO # 1.2 K/uL (0.0-0.8); MONO % 10.2 % (0.0-10.0); NEUT % 75.2 % (50.0-75.0); RBC 4.35 Mil/uL (4.40-5.90); RED CELL DISTRIBUTION WIDTH 18.3 % (11.5-14.5)
[2018-10-29] MEDS ORDERED: guaiFENesin 100 mg/5 ml Syrup UD ONE (22:49)
[2018-10-29 22:57] LABS: BLOOD UREA NITROGEN 22 mg/dL (9-20); CALCIUM 10.6 mg/dl (8.6-10.4); GFR NON-AFRICAN AMERICAN > 60
[2018-10-29 23:18] VITALS: BP 116/79; PULSE 86
--- NOTE | 2018-10-30 09:03 | RAD ---
Date of service: 10/29/2018 HISTORY: cough COMPARISON: Comparison is made with 07/02/2018 FINDINGS: LUNGS: No evidence of new infiltrate or consolidation in the lungs PLEURA: No significant pleural effusion identified, no pneumothorax apparent. CARDIOVASCULAR: No aortic atherosclerotic calcification present. Normal cardiac size. No pulmonary vascular congestion. OSSEOUS STRUCTURES: No significant abnormalities. VISUALIZED UPPER ABDOMEN: Normal. OTHER FINDINGS: None. IMPRESSION: No active disease.
== END 2018-10-29 23:17 | disposition home or self-care (01) ==
LOC: C.ER 22:27
DX: J44.1 Chronic obstructive pulmonary disease with (acute) exacerbation (principal); F17.210 Nicotine dependence, cigarettes, uncomplicated; I11.0 Hypertensive heart disease with heart failure; I48.91 Unspecified atrial fibrillation; I50.9 Heart failure, unspecified